=== PATIENT | female | born 1965 | race Caucasian/White ===

== ENCOUNTER 2017-07-11 17:04 | Inpatient (IN) ==
[2017-07-11] MEDS ORDERED: predniSONE 20 MG TABLET PO ONE (17:40)
[2017-07-11] MEDS ORDERED: Ipratropium/Albuterol Neb 3 ML IH ONE (17:40)
--- NOTE | 2017-07-11 17:55 | Emergency Department Note ---
Disposition Clinical Impression: COPD exacerbation Pneumonia Qualifiers: Pneumonia type: due to unspecified organism Laterality: left Lung location: unspecified part of lung Qualified Code(s): J18.9 - Pneumonia, unspecified organism Disposition: Admitted As Inpatient Condition: Undetermined SOB HPI - General Chief Complaint: ED Upper Respiratory Infection Stated Complaint: Sinus congestion, earache, sore throat Time Seen by Provider: 07/11/17 17:40 Source: patient Mode of arrival: ambulatory Limitations: no limitations Nursing Notes Reviewed: Yes Vital Signs Reviewed: Yes - History of Present Illness 52-year-old female with extensive history of COPD on home oxygen, arrives [facility] emergency department complaining of difficulty breathing , nasal congestion, cough. The patient has had some sputum that she has been coughing up as well. She denies any chest pain, fevers, abdominal pain, nausea , vomiting. She was noted to be hypoxic with an O2 saturation of roughly 83% on 3 L nasal cannula in the emergency department. Pt Subjective Complaint: shortness of breath Onset (ago): unknown Severity: moderate, severe Consistency/Duration: constant, gradually worsening Improves with: oxygen, bronchodilators Worsens with: nothing Known history of: COPD, recurrent pneumonia Treatment prior to arrival: oxygen Cough present: Yes Cough Description: Involuntary, Productive Cough Frequency: Continuous Sputum production: Yes Sputum Amount: Small Sputum Color: Cream - Related Data Home oxygen amount: 2 liters Home Medications Medication Instructions Recorded Confirmed Albuterol Sulfate [Ventolin Hfa] 2 puff IH Q4H PRN 09/02/15 07/11/17 Fluticasone Propionate Nasal 50 mcg NS DAILY 05/27/16 07/11/17 [Flonase] Montelukast [Singulair] 10 mg PO QPM 05/27/16 07/11/17 Tiotropium [Spiriva] 18 mcg IH DAILY 05/27/16 07/11/17 Albuterol Neb [Proventil Neb] 2.5 mg IH TID 07/11/17 07/11/17 Aspirin 81 mg PO DAILY 07/11/17 07/11/17 Benzonatate [Tessalon] 100 mg PO TID PRN 07/11/17 07/11/17 Citalopram Hydrobromide 40 mg PO DAILY 07/11/17 07/11/17 [Citalopram HBr] Fluticasone/Vilanterol [Breo 1 puff IH DAILY 07/11/17 07/11/17 Ellipta 100-25 Mcg INH] Ibuprofen 200 mg PO Q6H PRN 07/11/17 07/11/17 Loratadine [Claritin] 10 mg PO DAILY 07/11/17 07/11/17 Nitroglycerin [Nitrostat] 0.4 mg SL Q5M PRN 07/11/17 07/11/17 hydrOXYzine HCl [Hydroxyzine HCl] 25 mg PO TID 07/11/17 07/11/17 Allergies Allergy/AdvReac Type Severity Reaction Status Date / Time codeine Allergy Rash Verified 07/11/17 17:19 fluoxetine [From Prozac] Allergy Rash Verified 07/11/17 17:19 All systems ED: reviewed and negative except as stated. Constitutional: Denies: fever, chills, weakness ENT ED: Reports: congestion Cardiovascular: Reports: dyspnea on exertion. Denies: chest pain Respiratory: Reports: cough, dyspnea, wheezes, sputum production Gastrointestinal: Denies: abdominal pain, nausea, vomiting Genitourinary: Denies: urgency, dysuria Musculoskeletal: Denies: back pain, neck pain, arthralgia, myalgia Integumentary: Denies: rash Neurological: Denies: headache Past Medical History - Past Medical History Attestation: Yes The following information was validated with the patient. Source: patient Medical history: Reports: asthma, COPD Surgical history: Reports: non-contributory Psychiatric history: Reports: no psych history - Social History Smoking Status: Current every day smoker Smokeless Tobacco Status: No Alcohol use: Reports: none Drug use: Reports: none Physical Exam - General Limitations: no limitations General appearance: alert, in distress (Moderate respiratory) - Head Head exam: atraumatic, normocephalic, normal inspection - Eye Eye exam: Present: normal appearance, PERRL, EOMI - ENT ENT exam: normal exam, normal oropharynx, mucous membranes moist - Neck Neck exam: Present: normal inspection, full ROM, trachea midline - Chest Chest inspection: Present: normal inspection, symmetric chest wall rise - Respiratory Respiratory exam: Present: respiratory distress, wheezes, accessory muscle use - Cardiovascular Cardiovascular exam: Present: regular rate, normal rhythm, normal heart sounds - Extremities Exam Extremities exam: Present: normal inspection, full ROM. Absent: tenderness, pedal edema Course Vital Signs Temperature 97.6 F 07/11/17 17:15 Pulse Rate 83 07/11/17 17:15 Respiratory Rate 24 07/11/17 17:15 Blood Pressure 116/78 07/11/17 17:15 O2 Sat by Pulse Oximetry 83 07/11/17 17:15 Temperature 97.9 F 07/13/17 03:05 Pulse Rate 70 07/13/17 03:05 Respiratory Rate 16 07/13/17 07:29 Blood Pressure 106/67 07/13/17 03:05 O2 Sat by Pulse Oximetry 97 07/13/17 07:29 Oxygen Delivery Oxygen Delivery Nasal Cannula Shortness of Breath/Dyspnea - MDM Narrative Medical decision making narrative: Workup here in the emergency department demonstrated COPD exacerbation with likely superimposed pneumonia. We will admit the patient to the hospitals after receiving antibiotic. The patient will be admitted. The patient's O2 saturation dropped into the low 80s prior to evaluation. Patient agrees to plan. Patient will be admitted to the hospitalist service, accepted by Dr. Logan. - Lab Data Result diagrams: 07/13/17 03:03 07/13/17 03:03 Lab Results 07/11/17 07/11/17 Range/Units 18:33 18:33 WBC 12.3 H (4.3-11.1) K/mcL RBC 5.04 H (3.82-4.97) M/mcL Hgb 14.2 (11.5-15.4) g/dL Hct 42.8 (35.3-44.9) % MCV 84.9 (83.0-100.0) fL MCH 28.2 (28.0-33.3) pg MCHC 33.2 (31.6-35.5) g/dL RDW 14.8 H (11.5-14.5) % Plt Count 208 (140-400) K/mcL MPV 11.2 (9.4-12.4) fL Immature Gran % 0.4 (0-4) % Seg Neutrophils % 56.9 % Lymphocytes % 35.2 % Monocytes % 5.9 % Eosinophils % 1.0 % Basophils % 0.6 % Neutrophils # 7.0 (1.6-8.9) K/mcL Lymphocytes # 4.3 (0.6-4.6) K/mcL Monocytes # 0.7 (0.0-1.3) K/mcL Eosinophils # 0.1 (0.0-0.6) K/mcL Basophils # 0.1 (0.0-0.2) K/mcL Sodium 141 (136-145) mEq/L Potassium 3.2 L (3.5-4.5) mEq/L Chloride 109 (98-109) mEq/L Carbon Dioxide 20 (19-29) mEq/L BUN 6 L (7-20) mg/dL Creatinine 0.67 (0.57-1.11) mg/dL Est GFR ( Amer) > 60 (> 60) Est GFR (Non-Af Amer) > 60 (> 60) BUN/Creatinine Ratio 9 (6-26) Glucose 90 (70-99) mg/dL Calculated Osmolality 289 (280-300) Calcium 8.3 L (8.6-10.8) mg/dL - Radiology Data Radiology results reviewed: Yes I reviewed the patient's radiology results. - EKG Data EKG attestation: Yes I reviewed and interpreted this EKG. EKG results narrative: Rate 70 bpm. TX interval 152 ms. QTC 366 ms. Normal sinus rhythm. No ST elevation or ST depression noted. EKG similar in appearance to EKG from 2016. No acute changes noted. Attestation Statement - Attestation Attestation: I examined this patient and my medical decision-making was reviewed with the Resident Physician. I agree with the documented findings, disposition and treatment plan as described except to the extent set forth below. COPD exacerbation secondary to CAP with hypoxemia, some improvement with treatment in ED. Stable, admitted for further treatment. Symptoms gradual in onset, consistent with COPD/pneumonia. Nothing in her history to suggest other cause of symptoms (PE, ACS, etc.).
[2017-07-11] MEDS ORDERED: Levofloxacin 750 MG/150 ML 750 MG/150 ML BAG IVPB ONE (18:26)
[2017-07-11] MEDS ORDERED: Ibuprofen 800 MG TABLET PO ONE (18:39)
[2017-07-11 18:54] LABS: Basophils # 0.1 K/mcL (0.0-0.2); Basophils % 0.6 %; Eosinophils # 0.1 K/mcL (0.0-0.6); Hematocrit 42.8 % (35.3-44.9); Hemoglobin 14.2 g/dL (11.5-15.4); Immature Granulocytes % 0.4 % (0-4); Lymphocytes # 4.3 K/mcL (0.6-4.6); Lymphocytes % 35.2 %; Mean Corpuscular HGB Conc 33.2 g/dL (31.6-35.5); Mean Corpuscular Hemoglobin 28.2 pg (28.0-33.3); Mean Corpuscular Volume 84.9 fL (83.0-100.0); Mean Platelet Volume 11.2 fL (9.4-12.4); Monocytes # 0.7 K/mcL (0.0-1.3); Monocytes % 5.9 %; Platelet Count 208 K/mcL (140-400); Red Blood Count 5.04 M/mcL (3.82-4.97); Red Cell Distribution Width 14.8 % (11.5-14.5); Segmented Neutrophils % 56.9 %
[2017-07-11 19:11] LABS: BUN/Creatinine Ratio 9 (6-26); Blood Urea Nitrogen 6 mg/dL (7-20); Calcium 8.3 mg/dL (8.6-10.8); Carbon Dioxide 20 mEq/L (19-29); Chloride 109 mEq/L (98-109); Glucose 90 mg/dL (70-99); Osmolality,Calculated 289 (280-300); Potassium 3.2 mEq/L (3.5-4.5); Sodium 141 mEq/L (136-145); eGFR For African Americans > 60 (> 60); eGFR For Non-African Americans > 60 (> 60)
[2017-07-11] MEDS ORDERED: Naloxone 0.4 MG/ML INJ IVP PRN (22:27)
[2017-07-11] MEDS ORDERED: Ketorolac 15 MG/ML VIAL IVP ONE (22:30)
--- NOTE | 2017-07-11 22:32 | Internal Med History&Physical ---
<Maritza Dewey - Last Filed: 07/12/17 02:33> Date of Encounter: 07/12/17 Time of Encounter: 22:27 Assessment and Plan (1) COPD exacerbation Current visit: Yes Status: Acute She has severe COPD whom she receives care from plate worker helper Dr. Nolen. On 3L oxygen continuous. She has had increased shortness of breathe, wheezing, and non- productive cough over the past 3 days. On admission her oxygen saturation was 83%. CXR showed diffuse interstitial lung disease with left opacity which may be infection. Vitals are stable, afebrile, oxygen saturation 92% on 3 L WBC 12.3 Rocephin IV Azithromycin IV Prednisone 40 mg x 5 days Continue supplemental oxygen continue home Spiriva Duonebs (2) Pneumonia Current visit: Yes Status: Acute Consider CA- pneumonia per chest x-ray findings CXR showed diffuse interstitial lung disease with left opacity which may be infection. Vitals are stable, afebrile, oxygen saturation 92% on 3 L WBC 12.3 Rocephin IV azithromycin IV supplemental oxygen Qualifiers: Pneumonia type: due to unspecified organism Laterality: left Lung location: unspecified part of lung Qualified Code(s): J18.9 - Pneumonia, unspecified organism (3) Sinus congestion Current visit: Yes Status: Acute Patient complains of sinus pressure in frontal and maxillary regions. Headache, congestion. She gets this every year and is better once treated with antibiotics. Continue flonase tylenol prn continue home Singulair and Claritin (4) Multiple allergies Current visit: Yes Status: Acute Patient has history of allergies continue home Singulair and Claritin (5) Depression Current visit: Yes Status: Acute Continue home medications Qualifiers: Depression Type: unspecified Qualified Code(s): F32.9 - Major depressive disorder, single episode, unspecified (6) Encounter for smoking cessation counseling Current visit: Yes Status: Acute She was counseled on smoking cessation. She declined at this time stating that she already knows she should quit. (7) DVT prophylaxis Current visit: Yes Status: Acute Heparin Internal Medicine - H&P: HPI Chief complaint: sinus congestion Admitted From: Emergency Dept Plans for Post Hospital Care: Home History of present illness: Ms. Varner is a 52 year old female past medical history of severe COPD and allergies who presents to the ED complaining of sinus congestion for 3 days duration. She stated that she gets this every year and that she normally gets antibiotics and she is fine however this is the first time she has been admitted. She was not able to get an appointment with her plate worker helper is Dr. Nolen so she decided to go to the ED. She stated that she has had a sinus headache, facial pain, sore throat, ear irritation, congestion, shortness of breath, wheezing, nonproductive cough. She said the dyspnea had increased despite using 4 to 5 duonebs a day besides her regular inhalers. She is on 3 L of oxygen continuously. She denies fever, chills, chest pain, palpitations, nausea, vomiting, diarrhea, abdominal pain, dysuria. She is a current smoker but she stated that she has not smoked the full pack per day since this began. She denies travel, sick contacts, hospitalization. In ED her oxygen saturation was 83% on 3 L oxygen. She was given a dose of Levaquin prednisone and ED. Chest x-ray showed diffuse interstitial lung disease with left opacity concerning for infection. Past Med Surg Social Fam HX - Past Medical History Medical history: asthma, COPD Psychiatric history: depression - Past Surgical History Surgical History: non-contributory - Social History Smoking Status: Current every day smoker Packs per day: 1 Smokeless Tobacco Status: No Alcohol use: none Drug use: none - Family History Mother Living Status: Still Living Hx Family Cardiac Disorders: Yes Hx Family Endocrine Disorder: Yes (dm) Sister Hx Family Cardiac Disorders: Yes Internal Medicine - H&P: Meds Albuterol Sulfate [Ventolin Hfa] 2 puff IH Q4H PRN 09/02/15 [History] Fluticasone Propionate Nasal [Flonase] 50 mcg NS DAILY 05/27/16 [History] Montelukast [Singulair] 10 mg PO QPM 05/27/16 [History] Tiotropium [Spiriva] 18 mcg IH DAILY 05/27/16 [History] Albuterol Neb [Proventil Neb] 2.5 mg IH TID 07/11/17 [History] Aspirin 81 mg PO DAILY 07/11/17 [History] Benzonatate [Tessalon] 100 mg PO TID PRN 07/11/17 [History] Citalopram Hydrobromide [Citalopram HBr] 40 mg PO DAILY 07/11/17 [History] Fluticasone/Vilanterol [Breo Ellipta 100-25 Mcg INH] 1 puff IH DAILY 07/11/17 [ History] Ibuprofen 200 mg PO Q6H PRN 07/11/17 [History] Loratadine [Claritin] 10 mg PO DAILY 07/11/17 [History] Nitroglycerin [Nitrostat] 0.4 mg SL Q5M PRN 07/11/17 [History] hydrOXYzine HCl [Hydroxyzine HCl] 25 mg PO TID 07/11/17 [History] 3 Allergy/AdvReac Type Severity Reaction Status Date / Time codeine Allergy Rash Verified 07/11/17 17:19 fluoxetine [From Prozac] Allergy Rash Verified 07/11/17 17:19 All Systems PM: A 10-system review of systems was performed and is negative for pertinent findings except as documented above in the HPI. - Constitutional Constitutional: no chills, no fever(s), no falls - EENT Ears: ear pain Nose, mouth and throat: nasal congestion, sinus pain, sinus pressure, sore throat - Cardiovascular Cardiovascular ROS IM: no chest pain, no edema, no palpitations, no syncope - Respiratory Respiratory: cough, dyspnea, wheezing, no hemoptysis, no excessive phlegm production - Gastrointestinal Gastrointestinal: no abdominal pain, no diarrhea, no hematochezia, no melena, no nausea, no vomiting - Genitourinary Genitourinary: no dysuria, no hematuria, no urinary frequency - Musculoskeletal Musculoskeletal ROS IM: no muscle weakness - Integumentary Integumentary IM: no pruritus, no skin ulcer - Neurological Neurological ROS: no dizziness, no frequent falls, no loss of vision - Constitutional Vitals: Temp Pulse Resp BP Pulse Ox 97.5 F L 74 17 101/63 92 07/11/17 22:06 07/11/17 22:06 07/11/17 22:06 07/11/17 22:06 07/11/17 22:06 General appearance: Present: A&O X 3, pleasant, no acute distress - Head Head exam: Present: atraumatic, normocephalic - Eye Eye exam: Present: conjunctival injection. Absent: nystagmus - ENT ENT exam: Present: mucous membranes moist, normal exam (tenderness to frontal and maxillary sinuses) - Expanded ENT Exam Throat exam: Present: normal inspection. Absent: tonsillar exudate - Neck Neck exam general surgery: Present: supple. Absent: lymphadenopathy, tenderness - Respiratory Respiratory exam: Present: decreased breath sounds, stridor, wheezes. Absent: accessory muscle use, respiratory distress Additional comments: course breathe sounds with crackles - Cardiovascular Cardiovascular exam: Present: RRR, +S1, +S2. Absent: clicks - GI/Abdominal GI/Abdominal exam: Present: normal bowel sounds, soft. Absent: firm, guarding, tenderness - Extremities Exam Extremities exam: Present: normal inspection. Absent: calf tenderness - Back Exam Back exam: Present: normal inspection. Absent: rash noted, tenderness - Psychiatric Psychiatric exam: Present: normal affect, normal mood - Skin Skin exam: Present: dry, intact Internal Med - H&P Results - Labs CBC & Chem 7: 07/11/17 18:33 07/11/17 18:33 <Campbell Hooks - Last Filed: 07/12/17 03:25> Date of Encounter: 07/11/17 Internal Medicine - H&P: HPI History of present illness: Ms. Varner is a 52 year old female All Systems PM: A 10-system review of systems was performed and is negative for pertinent findings except as documented above in the HPI. - Constitutional Vitals: Temp Pulse Resp BP Pulse Ox 97.5 F L 74 18 101/63 90 07/11/17 22:06 07/11/17 22:06 07/11/17 23:18 07/11/17 22:06 07/11/17 23:18 Internal Med - H&P Results - Labs CBC & Chem 7: 07/11/17 18:33 07/11/17 18:33 - Attending Attestation I examined this patient and my medical decision-making was reviewed with the Resident Physician. I agree with the documented findings, disposition and treatment plan as described except to the extent set forth below. I have seen and examined the patient. Patient is a 52-year-old female with a past medical history of advanced COPD and depression. Patient presents to the ED with complaints of shortness of breath and sinus congestion for the past 3 days. She follows up regularly with pulmonology. Patient uses 3 L oxygen via nasal cannula at home. Patient tried to use her DuoNeb breathing treatment, but this did not help. She continues to smoke about 1 pack of cigarettes daily. Initial workup in the ED is significant for interstitial lung disease with left opacity concerning for infection seen on chest x-ray and hypoxia. Patient is being admitted for COPD exacerbation and community-acquired pneumonia. She be continued on DuoNeb breathing treatment and empiric IV antibiotics. She has been counseled extensively about smoking cessation. Patient has been explained about her condition and plan of care in detail. She understood and agreed. No unanswered questions. CODE STATUS full code.
[2017-07-11] MEDS ORDERED: Benzonatate 100 MG CAPSULE PO PRN (22:34)
[2017-07-11] MEDS: hydrOXYzine pamoate 25 MG CAPSULE PO SCH (23:08)
[2017-07-11] MEDS: Ipratropium/Albuterol Neb 3 ML IH SCH (23:18)
[2017-07-12] MEDS ORDERED: cefTRIAXone 1,000 MG in Water for inj. (sterile) 10 ML IVP SCH (02:40)
[2017-07-12] MEDS: cefTRIAXone 1,000 MG in Water for inj. (sterile) 10 ML IVP SCH (04:05)
[2017-07-12] MEDS: Ipratropium/Albuterol Neb 3 ML IH SCH ×6 (04:06→23:03)
[2017-07-12] MEDS: Azithromycin 500 MG in D5% in Water 250 ML IVPB SCH (04:06)
[2017-07-12 04:48] LABS: Basophils % 0.2 %; Hematocrit 46.2 % (35.3-44.9); Hemoglobin 15.2 g/dL (11.5-15.4); Immature Granulocytes % 0.3 % (0-4); Lymphocytes # 1.4 K/mcL (0.6-4.6); Lymphocytes % 15.5 %; Mean Corpuscular HGB Conc 32.9 g/dL (31.6-35.5); Mean Corpuscular Hemoglobin 28.1 pg (28.0-33.3); Mean Corpuscular Volume 85.6 fL (83.0-100.0); Mean Platelet Volume 11.6 fL (9.4-12.4); Monocytes # 0.1 K/mcL (0.0-1.3); Monocytes % 0.7 %; Neutrophils # 7.6 K/mcL (1.6-8.9); Platelet Count 228 K/mcL (140-400); Red Cell Distribution Width 14.9 % (11.5-14.5); Segmented Neutrophils % 83.3 %
[2017-07-12 04:58] LABS: BUN/Creatinine Ratio 13 (6-26); Blood Urea Nitrogen 10 mg/dL (7-20); Calcium 8.9 mg/dL (8.6-10.8); Carbon Dioxide 17 mEq/L (19-29); Chloride 106 mEq/L (98-109); Glucose 188 mg/dL (70-99); Osmolality,Calculated 292 (280-300); Potassium 3.9 mEq/L (3.5-4.5); Sodium 139 mEq/L (136-145); eGFR For African Americans > 60 (> 60); eGFR For Non-African Americans > 60 (> 60)
[2017-07-12] MEDS: *HR* Heparin 5,000 UNIT/ML VIAL SQ SCH ×2 (05:32→17:17)
[2017-07-12] MEDS: Tiotropium 18 MCG inhalation IH SCH (07:36)
[2017-07-12] MEDS: Loratadine 10 MG TABLET PO SCH (08:16)
[2017-07-12] MEDS: Aspirin 81 MG TAB.CHEW PO SCH (08:16)
[2017-07-12] MEDS: Fluticasone Propionate Nasal 50 MCG/SPRAY BOTTLE NS SCH (08:17)
[2017-07-12] MEDS: predniSONE 20 MG TABLET PO SCH (08:17)
[2017-07-12] MEDS: hydrOXYzine pamoate 25 MG CAPSULE PO SCH ×3 (08:18→20:04)
[2017-07-12] MEDS ORDERED: Ketorolac 15 MG/ML VIAL IVP PRN (09:58)
--- NOTE | 2017-07-12 10:32 | Internal Med Progress Note ---
Date of Encounter: 07/12/17 Time of Encounter: 09:00 - Assessment and plan (1) COPD exacerbation Current Visit: Yes Status: Acute Assessment and plan: c/w oral prednisone. c/w nebs. On baseline O2. Will monitor (2) Pneumonia Current Visit: Yes Status: Acute Assessment and plan: c/w IV ceftriaxone and zithro today. possibly d/c tomorrow. f/u on cultures. WBC trending donw Qualifiers: Pneumonia type: due to unspecified organism Laterality: left Lung location: unspecified part of lung Qualified Code(s): J18.9 - Pneumonia, unspecified organism (3) DVT prophylaxis Current Visit: Yes Status: Acute Assessment and plan: heparin SQ (4) Sinus congestion Current Visit: Yes Status: Acute Assessment and plan: c/w symptomatic treatment. c/w flonase. c/w IV toradol as that has helped earlier. (5) Encounter for smoking cessation counseling Current Visit: Yes Status: Acute Assessment and plan: nicotine patch - Subjective Interval history: No acute events. Patient feels well. She continues to have a dry cough. Afebrile. Maintained on 3 L O2. - Constitutional Vitals: Temp Pulse Resp BP Pulse Ox 97.8 F 70 15 104/62 93 07/12/17 07:38 07/12/17 07:38 07/12/17 07:38 07/12/17 07:38 07/12/17 07:38 General appearance: Present: A&O X 3, pleasant, no acute distress Exam: GEN: NAD CVS: RRR. S1, S2, No m/r/g RESP: Dimished. No wheezes but coarse ABD: soft, NT, ND, +BS EXT: No edema. 2+ DP NEURO: Nonfocal Internal Medicine: Result - Labs CBC & Chem 7: 07/12/17 03:14 07/12/17 03:14 Labs: Short CBC 07/12/17 Range/Units 03:14 WBC 9.1 (4.3-11.1) K/mcL Hgb 15.2 (11.5-15.4) g/dL Hct 46.2 H (35.3-44.9) % Plt Count 228 (140-400) K/mcL Neutrophils # 7.6 (1.6-8.9) K/mcL BMP 07/12/17 03:14 Sodium 139 Potassium 3.9 Chloride 106 Carbon Dioxide 17 L BUN 10 Creatinine 0.80 Glucose 188 H Calcium 8.9 Consult Discharge Plan - Plan Referrals: NONE,PCP [Primary Care Provider] -
[2017-07-12] MEDS ORDERED: Temazepam 15 MG CAPSULE PO PRN (19:38)
[2017-07-13] MEDS: Ipratropium/Albuterol Neb 3 ML IH SCH ×3 (03:12→11:03)
[2017-07-13] MEDS: Azithromycin 500 MG in D5% in Water 250 ML IVPB SCH (03:12)
[2017-07-13 04:39] LABS: Basophils # 0.1 K/mcL (0.0-0.2); Basophils % 0.3 %; Eosinophils % 0.1 %; Hematocrit 41.4 % (35.3-44.9); Immature Granulocytes % 0.4 % (0-4); Lymphocytes # 6.2 K/mcL (0.6-4.6); Lymphocytes % 30.2 %; Mean Corpuscular HGB Conc 32.4 g/dL (31.6-35.5); Mean Corpuscular Volume 86.4 fL (83.0-100.0); Mean Platelet Volume 11.6 fL (9.4-12.4); Monocytes # 1.4 K/mcL (0.0-1.3); Monocytes % 6.9 %; Neutrophils # 12.8 K/mcL (1.6-8.9); Platelet Count 214 K/mcL (140-400); Red Blood Count 4.79 M/mcL (3.82-4.97); Red Cell Distribution Width 15.5 % (11.5-14.5); Segmented Neutrophils % 62.1 %
[2017-07-13 04:40] LABS: Hemoglobin 13.4 g/dL (11.5-15.4)
[2017-07-13 04:49] LABS: BUN/Creatinine Ratio 16 (6-26); Blood Urea Nitrogen 10 mg/dL (7-20); Calcium 8.5 mg/dL (8.6-10.8); Carbon Dioxide 22 mEq/L (19-29); Chloride 109 mEq/L (98-109); Glucose 82 mg/dL (70-99); Osmolality,Calculated 292 (280-300); Sodium 142 mEq/L (136-145); eGFR For African Americans > 60 (> 60); eGFR For Non-African Americans > 60 (> 60)
[2017-07-13] MEDS: *HR* Heparin 5,000 UNIT/ML VIAL SQ SCH (06:02)
[2017-07-13] MEDS: Tiotropium 18 MCG inhalation IH SCH (07:28)
[2017-07-13 07:35] VITALS: BP 112/73
[2017-07-13] MEDS: Aspirin 81 MG TAB.CHEW PO SCH (08:50)
[2017-07-13] MEDS: Fluticasone Propionate Nasal 50 MCG/SPRAY BOTTLE NS SCH (08:51)
[2017-07-13] MEDS: Loratadine 10 MG TABLET PO SCH (08:51)
[2017-07-13] MEDS: hydrOXYzine pamoate 25 MG CAPSULE PO SCH (08:51)
[2017-07-13] MEDS: cefTRIAXone 1,000 MG in Water for inj. (sterile) 10 ML IVP SCH (08:52)
[2017-07-13] MEDS: predniSONE 20 MG TABLET PO SCH (08:52)
--- NOTE | 2017-07-13 10:03 | Discharge Summary ---
Date of Encounter: 07/14/17 Time of Encounter: 10:00 - Discharge Diagnosis (1) COPD exacerbation Priority: Primary Status: Acute (2) Pneumonia Priority: Primary Status: Acute Qualifiers: Pneumonia type: due to unspecified organism Laterality: left Lung location: unspecified part of lung Qualified Code(s): J18.9 - Pneumonia, unspecified organism (3) Sinus congestion Priority: Primary Status: Acute (4) Encounter for smoking cessation counseling Priority: Primary Status: Acute - Discharge Medications Prescriptions: levoFLOXacin [Levaquin] 500 mg PO DAILY #7 tablet predniSONE [PredniSONE] See Taper PO DAILY #39 tablet Temazepam [Restoril] 7.5 mg PO DAILY #15 capsule Home Medications: Albuterol Sulfate [Ventolin Hfa] 2 puff IH Q4H PRN 09/02/15 [History] Fluticasone Propionate Nasal [Flonase] 50 mcg NS DAILY 05/27/16 [History] Montelukast [Singulair] 10 mg PO QPM 05/27/16 [History] Tiotropium [Spiriva] 18 mcg IH DAILY 05/27/16 [History] Albuterol Neb [Proventil Neb] 2.5 mg IH TID 07/11/17 [History] Aspirin 81 mg PO DAILY 07/11/17 [History] Benzonatate [Tessalon] 100 mg PO TID PRN 07/11/17 [History] Citalopram Hydrobromide [Citalopram HBr] 40 mg PO DAILY 07/11/17 [History] Fluticasone/Vilanterol [Breo Ellipta 100-25 Mcg INH] 1 puff IH DAILY 07/11/17 [ History] Ibuprofen 200 mg PO Q6H PRN 07/11/17 [History] Loratadine [Claritin] 10 mg PO DAILY 07/11/17 [History] Nitroglycerin [Nitrostat] 0.4 mg SL Q5M PRN 07/11/17 [History] hydrOXYzine HCl [Hydroxyzine HCl] 25 mg PO TID 07/11/17 [History] Temazepam [Restoril] 7.5 mg PO DAILY #15 capsule 07/13/17 [Rx] levoFLOXacin [Levaquin] 500 mg PO DAILY #7 tablet 07/13/17 [Rx] predniSONE [PredniSONE] See Taper PO DAILY #39 tablet 07/13/17 [Rx] Allergies/Adverse Reactions: 3 Allergy/AdvReac Type Severity Reaction Status Date / Time codeine Allergy Rash Verified 07/11/17 17:19 fluoxetine [From Prozac] Allergy Rash Verified 07/11/17 17:19 Procedures/tests Complete & Pending: Procedures Performed prior 72 hours Category Date Time Status ECG 12 lead ECG [ECG] Routine Y 07/11/17 17:40 Completed Date of admission: 07/11/17 18:49 Primary care physician: PCP NONE Consults: 07/11/17 23:49 Consult to Report Analyst [CONS] Routine Reason for SW Consult: Pt is asking about possible home health. - Patient Status Disposition: Home, Self-Care Condition: Fair Functional capacity at discharge: independent ambulation Overall status at discharge: patient is back to baseline - Discharge Instructions Instructions: Prednisone (By mouth), Levofloxacin (By mouth), How to Stop Smoking (DC), Chronic Obstructive Pulmonary Disease (DC), Pneumonia (DC) Follow Up With: NONE,PCP [Primary Care Provider] - 07/26/17 10:15 am ([facility]) - Diet and Activity Activity: wear oxygen at all times Diet: regular diet Hospital course: 52 year old female past medical history of severe COPD and allergies who presents to the ED complaining of sinus congestion for 3 days duration. She said the dyspnea had increased despite using 4 to 5 duonebs a day besides her regular inhalers. She is on 3 L of oxygen continuously. She denied fever, chills , chest pain, palpitations, nausea, vomiting, diarrhea, abdominal pain, dysuria. She is a current smoker but she stated that she has not smoked the full pack per day since this began. In ED her oxygen saturation was 83% on 3 L oxygen. She was given a dose of Levaquin and prednisone and ED. Chest x-ray showed diffuse interstitial lung disease with left opacity concerning for infection. We treated her for COPD exacerbation and community acquired pneumonia. She was on IV steroids and switched to oral taper at d/c. She was also discharged on Levaquin to finish pneumonia treatment. She needed 3L at rest and 4 L with exertion at discharge. - Time Spent with Patient Total time spent providing and/or coordinating discharge services: - Constitutional Vitals: Temp Pulse Resp BP Pulse Ox 96.7 F L 56 15 112/73 99 07/13/17 07:30 07/13/17 07:30 07/13/17 07:30 07/13/17 07:30 07/13/17 07:30 General appearance: Present: A&O X 3, pleasant, no acute distress Exam: GEN: NAD CVS: RRR. S1, S2, No m/r/g RESP: Dimished. No wheezes but coarse ABD: soft, NT, ND, +BS EXT: No edema. 2+ DP NEURO: Nonfocal
--- NOTE | 2017-07-13 18:16 | Electrocardiograph Report ---
[place] [id number] Test Date: 2017-07-11 Pat Name: Shahrzad Varner Department: 104 Room: 3B14 Gender: F Cyber Security Specialist: ORLIN : 1965 Requested By: Keshia Rendon Order Number: [id number] Reading MD: Yonas Hitchcock DO Measurements Intervals [place] Rate: 70 P: 119 NC: 152 QRS: 88 QRSD: 90 T: 114 QT: 346 QTc: 366 Interpretive Statements SINUS RHYTHM POSSIBLE LEFT ATRIAL ENLARGEMENT NONSPECIFIC ST & T-WAVE ABNORMALITY Electronically Signed On 07-13-2017 18:14:41 EST by Yonas Hitchcock DO
== END 2017-07-13 12:58 | disposition home or self-care (01) | DRG 140 ==
LOC: EMEROO 17:04 → 3BNU 18:49
PROVIDERS: ADMIT Hospitalist; ATTEND Registered Nurse

== ENCOUNTER 2017-11-04 19:04 | Inpatient (IN) ==
[2017-11-04] MEDS ORDERED: Ipratropium/Albuterol Neb 3 ML IH ONE (19:25)
[2017-11-04] MEDS ORDERED: methylPREDNISolone 125 MG/2 ML VIAL IVP ONE (19:25)
--- NOTE | 2017-11-04 19:35 | Emergency Department Note ---
Disposition Clinical Impression: Acute exacerbation of chronic obstructive airways disease Disposition: Admitted As Inpatient Condition: Fair Referrals: NONE,PCP [Primary Care Provider] - Forms: ED Satisfaction Letter Time of Disposition: 21:46 General Adult HPI - General Chief complaint: ED Shortness of Breath/Dyspnea Stated complaint: VENKATESH/COPD Time Seen by Provider: 11/04/17 19:23 Source: patient Mode of arrival: wheelchair Limitations: no limitations Nursing Notes Reviewed: Yes Vital Signs Reviewed: Yes - History of Present Illness HPI Narrative: 52-year-old female with significant past medical history of COPD following pulmonology at [place] on 4 L nasal cannula of oxygen throughout the day presenting to the emergency Department chief complaint shortness of breath. Patient states for the past week she has been having increased shortness of breath and chest pain. She states "my heart hurts". Patient denies any cardiac history. Patient denies any fevers. Last time she was admitted was around [place]. She states she has needed BiPAP in the past. Does not have BiPAP or CPAP at home. No known sick contacts. Denies any nausea, vomiting, abdominal pain or dizziness. Patient states at home when she is wearing her nasal cannula oxygen when she exerts herself her oxygen saturation has been low as 50%. Pain Scale: 10 - Related Data Home Medications Medication Instructions Recorded Confirmed Albuterol Sulfate [Ventolin Hfa] 2 puff IH Q4H PRN 09/02/15 11/04/17 Fluticasone Propionate Nasal 50 mcg NS DAILY 05/27/16 11/04/17 [Flonase] Montelukast [Singulair] 10 mg PO QPM 05/27/16 11/04/17 Tiotropium [Spiriva] 18 mcg IH DAILY 05/27/16 11/04/17 Albuterol Neb [Proventil Neb] 2.5 mg IH TID 07/11/17 11/04/17 Aspirin 81 mg PO DAILY 07/11/17 11/04/17 Benzonatate [Tessalon] 100 mg PO TID PRN 07/11/17 11/04/17 Fluticasone/Vilanterol [Breo 1 puff IH DAILY 07/11/17 11/04/17 Ellipta 100-25 Mcg INH] Ibuprofen 200 mg PO Q6H PRN 07/11/17 11/04/17 Loratadine [Claritin] 10 mg PO DAILY 07/11/1718 Nitroglycerin [Nitrostat] 0.4 mg SL Q5M PRN 07/11/17 11/04/17 Allergies Allergy/AdvReac Type Severity Reaction Status Date / Time codeine Allergy Rash Verified 07/11/17 17:19 fluoxetine [From Prozac] Allergy Rash Verified 07/11/17 17:19 All systems ED: reviewed and negative except as stated. Cardiovascular: Reports: chest pain, dyspnea on exertion Respiratory: Reports: dyspnea Past Medical History - Past Medical History Attestation: Yes The following information was validated with the patient. Medical history: Reports: asthma, COPD Surgical history: Reports: non-contributory Psychiatric history: Reports: no psych history - Social History Smoking Status: Current every day smoker Smokeless Tobacco Status: No Alcohol use: Reports: none Drug use: Reports: none Physical Exam - General Limitations: no limitations General appearance: alert, in distress (respiratory) - Head Head exam: atraumatic, normocephalic, normal inspection - Eye Eye exam: Present: normal appearance. Absent: scleral icterus, conjunctival injection - ENT ENT exam: normal exam, mucous membranes moist - Neck Neck exam: Present: normal inspection, full ROM. Absent: tenderness, meningismus - Chest Chest inspection: Present: normal inspection, symmetric chest wall rise. Absent : tenderness, rash - Respiratory Respiratory exam: Present: other (Inspiratory wheezing throughout. Decreased breath sounds throughout.) - Cardiovascular Cardiovascular exam: Present: normal rhythm, tachycardia, normal heart sounds - Abdominal Exam Abdominal exam: Present: soft, Non-Tender. Absent: distention, guarding, rebound - Extremities Exam Extremities exam: Present: normal inspection, full ROM - Neurological Exam Neurological exam: Present: alert, oriented X3 - Psychiatric Psychiatric exam: Present: normal affect, normal mood - Skin Skin exam: Present: warm, intact Course Course Narrative: 52-year-old female with COPD presenting for shortness of breath. Upon presentation patient is tachycardic and hypoxic. Patient placed on nonrebreather mask at 10 L. Patient heart rate then became within normal limits and oxygen saturation 100%. Patient is alert and oriented 3 in the room. Physical exam shows inspiratory wheezing and decreased breath sounds otherwise within normal limits. We will obtain basic laboratory analysis and a chest x-ray. We will also provide her with breathing treatments and steroids. Concern for COPD exacerbation at this time. Patient disposition pending but most likely admission. Patient agrees with this plan. - Reevaluation(s) Reevaluation #1: All patient's labs and imaging is comeback within normal limits. Patient has oxygen saturation in the low 90s on 8 L oxygen mask. We will plan to admit the patient at this time for COPD exacerbation along with hypoxia. Patient is alert and oriented 3 and room. Other vital signs stable and within normal limits. I spoke with the hospitalist on-call who agrees to accept the patient. Patient agrees with this plan. Vital Signs Temperature 98.1 F 11/04/17 19:05 Pulse Rate 109 11/04/17 19:05 Respiratory Rate 30 11/04/17 19:05 Blood Pressure 155/82 11/04/17 19:05 O2 Sat by Pulse Oximetry 63 11/04/17 19:05 Temperature 98.1 F 11/04/17 19:05 Pulse Rate 89 11/04/17 20:30 Respiratory Rate 20 11/04/17 19:35 Blood Pressure 131/80 11/04/17 20:30 O2 Sat by Pulse Oximetry 92 11/04/17 20:30 Oxygen Delivery Oxygen Delivery Nasal Cannula Medical Decision Making - Lab Data Result diagrams: 11/04/17 19:30 11/04/17 19:30 Lab Results 11/04/17 11/04/17 11/04/17 Range/Units 19:30 19:30 19:30 WBC 13.3 H (4.3-11.1) K/mcL RBC 5.70 H (3.82-4.97) M/mcL Hgb 16.2 H (11.5-15.4) g/dL Hct 49.4 H (35.3-44.9) % MCV 86.7 (83.0-100.0) fL MCH 28.4 (28.0-33.3) pg MCHC 32.8 (31.6-35.5) g/dL RDW 14.4 (11.5-14.5) % Plt Count 250 (140-400) K/mcL MPV 11.2 (9.4-12.4) fL Immature Gran % 0.3 (0-4) % Seg Neutrophils % 61.6 % Lymphocytes % 31.1 % Monocytes % 5.0 % Eosinophils % 1.3 % Basophils % 0.7 % Neutrophils # 8.2 (1.6-8.9) K/mcL Lymphocytes # 4.1 (0.6-4.6) K/mcL Monocytes # 0.7 (0.0-1.3) K/mcL Eosinophils # 0.2 (0.0-0.6) K/mcL Basophils # 0.1 (0.0-0.2) K/mcL Sodium 141 (136-145) mEq/L Potassium 3.1 L (3.5-5.1) mEq/L Chloride 107 (98-107) mEq/L Carbon Dioxide 23 (23-29) mEq/L BUN 6 (6-20) mg/dL Creatinine 0.74 (0.60-1.20) mg/dL Est GFR ( Amer) > 60 (> 60) Est GFR (Non-Af Amer) > 60 (> 60) BUN/Creatinine Ratio 8 (6-26) Glucose 100 (70-105) mg/dL Calculated Osmolality 290 (280-300) Lactic Acid 2.2 (0.5-2.2) mmol/L Calcium 9.7 (8.6-10.3) mg/dL Troponin I < 0.03 (< 0.04) ng/mL B-Natriuretic Peptide (Less than 100) pg/mL 11/04/17 Range/Units 19:30 WBC (4.3-11.1) K/mcL RBC (3.82-4.97) M/mcL Hgb (11.5-15.4) g/dL Hct (35.3-44.9) % MCV (83.0-100.0) fL MCH (28.0-33.3) pg MCHC (31.6-35.5) g/dL RDW (11.5-14.5) % Plt Count (140-400) K/mcL MPV (9.4-12.4) fL Immature Gran % (0-4) % Seg Neutrophils % % Lymphocytes % % Monocytes % % Eosinophils % % Basophils % % Neutrophils # (1.6-8.9) K/mcL Lymphocytes # (0.6-4.6) K/mcL Monocytes # (0.0-1.3) K/mcL Eosinophils # (0.0-0.6) K/mcL Basophils # (0.0-0.2) K/mcL Sodium (136-145) mEq/L Potassium (3.5-5.1) mEq/L Chloride (98-107) mEq/L Carbon Dioxide (23-29) mEq/L BUN (6-20) mg/dL Creatinine (0.60-1.20) mg/dL Est GFR ( Amer) (> 60) Est GFR (Non-Af Amer) (> 60) BUN/Creatinine Ratio (6-26) Glucose (70-105) mg/dL Calculated Osmolality (280-300) Lactic Acid (0.5-2.2) mmol/L Calcium (8.6-10.3) mg/dL Troponin I (< 0.04) ng/mL B-Natriuretic Peptide 666 H (Less than 100) pg/mL - EKG Data EKG #1 EKG attestation: Yes I reviewed and interpreted this EKG. EKG results narrative: Sinus rhythm. Left atrial enlargement. Right axis deviation. 84 beats for minute. AL interval 169, QRS 92, QTC 425. No signs of acute ST segment elevation or ischemia compared to previous EKG completed on 07/11/2017 no significant changes noted
[2017-11-04 19:44] LABS: Basophils # 0.1 K/mcL (0.0-0.2); Basophils % 0.7 %; Eosinophils # 0.2 K/mcL (0.0-0.6); Eosinophils % 1.3 %; Hematocrit 49.4 % (35.3-44.9); Hemoglobin 16.2 g/dL (11.5-15.4); Immature Granulocytes % 0.3 % (0-4); Lymphocytes # 4.1 K/mcL (0.6-4.6); Lymphocytes % 31.1 %; Mean Corpuscular HGB Conc 32.8 g/dL (31.6-35.5); Mean Corpuscular Hemoglobin 28.4 pg (28.0-33.3); Mean Corpuscular Volume 86.7 fL (83.0-100.0); Mean Platelet Volume 11.2 fL (9.4-12.4); Monocytes # 0.7 K/mcL (0.0-1.3); Neutrophils # 8.2 K/mcL (1.6-8.9); Platelet Count 250 K/mcL (140-400); Red Cell Distribution Width 14.4 % (11.5-14.5); Segmented Neutrophils % 61.6 %
[2017-11-04 20:04] LABS: BUN/Creatinine Ratio 8 (6-26); Blood Urea Nitrogen 6 mg/dL (6-20); Calcium 9.7 mg/dL (8.6-10.3); Carbon Dioxide 23 mEq/L (23-29); Chloride 107 mEq/L (98-107); Glucose 100 mg/dL (70-105); Osmolality,Calculated 290 (280-300); Potassium 3.1 mEq/L (3.5-5.1); Sodium 141 mEq/L (136-145); eGFR For African Americans > 60 (> 60); eGFR For Non-African Americans > 60 (> 60)
[2017-11-04 20:05] LABS: Troponin I < 0.03 ng/mL (< 0.04)
--- NOTE | 2017-11-04 22:04 | Emergency Department Note ---
Disposition Clinical Impression: Acute exacerbation of chronic obstructive airways disease Disposition: Admitted As Inpatient Condition: Fair General Adult HPI - General Chief complaint: ED Shortness of Breath/Dyspnea Stated complaint: VENKATESH/COPD Time Seen by Provider: 11/04/17 19:23 Source: patient Mode of arrival: wheelchair Limitations: no limitations Nursing Notes Reviewed: Yes Vital Signs Reviewed: Yes - History of Present Illness Pain Scale: 10 - Related Data Home Medications Medication Instructions Recorded Confirmed Albuterol Sulfate [Ventolin Hfa] 2 puff IH Q4H PRN 09/02/15 11/04/17 Fluticasone Propionate Nasal 50 mcg NS DAILY 05/27/16 11/04/17 [Flonase] Montelukast [Singulair] 10 mg PO QPM 05/27/16 11/04/17 Tiotropium [Spiriva] 18 mcg IH DAILY 05/27/16 11/04/17 Albuterol Neb [Proventil Neb] 2.5 mg IH TID 07/11/17 11/04/17 Aspirin 81 mg PO DAILY 07/11/17 11/04/17 Benzonatate [Tessalon] 100 mg PO TID PRN 07/11/17 11/04/17 Fluticasone/Vilanterol [Breo 1 puff IH DAILY 07/11/17 11/04/17 Ellipta 100-25 Mcg INH] Ibuprofen 200 mg PO Q6H PRN 07/11/17 11/04/17 Loratadine [Claritin] 10 mg PO DAILY 07/11/17 11/04/17 Nitroglycerin [Nitrostat] 0.4 mg SL Q5M PRN 07/11/17 11/04/17 Allergies Allergy/AdvReac Type Severity Reaction Status Date / Time codeine Allergy Rash Verified 07/11/17 17:19 fluoxetine [From Prozac] Allergy Rash Verified 07/11/17 17:19 Cardiovascular: Reports: chest pain, dyspnea on exertion Respiratory: Reports: dyspnea Past Medical History - Past Medical History Medical history: Reports: asthma, COPD Surgical history: Reports: non-contributory Psychiatric history: Reports: no psych history - Social History Smoking Status: Current every day smoker Smokeless Tobacco Status: No Alcohol use: Reports: none Drug use: Reports: none Physical Exam - General Limitations: no limitations General appearance: alert, in distress (respiratory) Course Vital Signs Temperature 98.1 F 11/04/17 19:05 Pulse Rate 109 11/04/17 19:05 Respiratory Rate 30 11/04/17 19:05 Blood Pressure 155/82 11/04/17 19:05 O2 Sat by Pulse Oximetry 63 11/04/17 19:05 Temperature 98.1 F 11/04/17 19:05 Pulse Rate 86 11/04/17 21:30 Respiratory Rate 20 11/04/17 19:35 Blood Pressure 129/90 11/04/17 21:30 O2 Sat by Pulse Oximetry 92 11/04/17 21:30 Oxygen Delivery Oxygen Delivery Nasal Cannula Medical Decision Making - Lab Data Result diagrams: 11/04/17 19:30 11/04/17 19:30 Lab Results 11/04/17 11/04/17 11/04/17 Range/Units 19:30 19:30 19:30 WBC 13.3 H (4.3-11.1) K/mcL RBC 5.70 H (3.82-4.97) M/mcL Hgb 16.2 H (11.5-15.4) g/dL Hct 49.4 H (35.3-44.9) % MCV 86.7 (83.0-100.0) fL MCH 28.4 (28.0-33.3) pg MCHC 32.8 (31.6-35.5) g/dL RDW 14.4 (11.5-14.5) % Plt Count 250 (140-400) K/mcL MPV 11.2 (9.4-12.4) fL Immature Gran % 0.3 (0-4) % Seg Neutrophils % 61.6 % Lymphocytes % 31.1 % Monocytes % 5.0 % Eosinophils % 1.3 % Basophils % 0.7 % Neutrophils # 8.2 (1.6-8.9) K/mcL Lymphocytes # 4.1 (0.6-4.6) K/mcL Monocytes # 0.7 (0.0-1.3) K/mcL Eosinophils # 0.2 (0.0-0.6) K/mcL Basophils # 0.1 (0.0-0.2) K/mcL Sodium 141 (136-145) mEq/L Potassium 3.1 L (3.5-5.1) mEq/L Chloride 107 (98-107) mEq/L Carbon Dioxide 23 (23-29) mEq/L BUN 6 (6-20) mg/dL Creatinine 0.74 (0.60-1.20) mg/dL Est GFR ( Amer) > 60 (> 60) Est GFR (Non-Af Amer) > 60 (> 60) BUN/Creatinine Ratio 8 (6-26) Glucose 100 (70-105) mg/dL Calculated Osmolality 290 (280-300) Lactic Acid 2.2 (0.5-2.2) mmol/L Calcium 9.7 (8.6-10.3) mg/dL Troponin I < 0.03 (< 0.04) ng/mL B-Natriuretic Peptide (Less than 100) pg/mL 11/04/17 Range/Units 19:30 WBC (4.3-11.1) K/mcL RBC (3.82-4.97) M/mcL Hgb (11.5-15.4) g/dL Hct (35.3-44.9) % MCV (83.0-100.0) fL MCH (28.0-33.3) pg MCHC (31.6-35.5) g/dL RDW (11.5-14.5) % Plt Count (140-400) K/mcL MPV (9.4-12.4) fL Immature Gran % (0-4) % Seg Neutrophils % % Lymphocytes % % Monocytes % % Eosinophils % % Basophils % % Neutrophils # (1.6-8.9) K/mcL Lymphocytes # (0.6-4.6) K/mcL Monocytes # (0.0-1.3) K/mcL Eosinophils # (0.0-0.6) K/mcL Basophils # (0.0-0.2) K/mcL Sodium (136-145) mEq/L Potassium (3.5-5.1) mEq/L Chloride (98-107) mEq/L Carbon Dioxide (23-29) mEq/L BUN (6-20) mg/dL Creatinine (0.60-1.20) mg/dL Est GFR ( Amer) (> 60) Est GFR (Non-Af Amer) (> 60) BUN/Creatinine Ratio (6-26) Glucose (70-105) mg/dL Calculated Osmolality (280-300) Lactic Acid (0.5-2.2) mmol/L Calcium (8.6-10.3) mg/dL Troponin I (< 0.04) ng/mL B-Natriuretic Peptide 666 H (Less than 100) pg/mL Critical Care Time Critical Care Time: Yes Total Critical Care Time: 35 Attestation: Critical care performed: Time is exclusive of separately billable procedures. Time includes: direct patient care, patient reassessment, coordination of patient care, interpretation of data (laboratory data, radiology data, and respiratory data), review of patient's medical records, medical consultation and documentation of patient care. Procedures included in critical care time: Procedures excluded from critical care time: Attestation Statement - Attestation Attestation: I, Nilson Dasilva MD, personally evaluated this patient and discussed their management with the resident physician. I reviewed the resident's note and agree with the documented findings, medical decision making, and plan of care. 52-year-old female with oxygen-dependent COPD presents to the emergency department complaining of increased shortness of breath with any exertion throughout the day today which has gotten progressively worse especially this evening. He has increased her oxygen with no improvement. She states with any exertion she gets extremely short of breath. Some mid chest pain. No increased cough. No fever. On initial oxygen saturation at triage was 63% on 4 L by nasal cannula. Patient was immediately brought back to the emergency department and placed on a nonrebreather mask. On examination patient is a thin small female in moderate respiratory distress. She is alert and oriented 3. There is no cyanosis or diaphoresis. Breath sounds are markedly decreased bilaterally with diffuse bilateral inspiratory wheezes. I did not appreciate any expiratory wheezes. No rales. Heart regular rate and rhythm. Abdomen soft and nontender with normal bowel sounds. No pedal edema. Patient was initially tachycardic and in moderate respiratory distress. She was placed on oxygen by nonrebreather rapid improvement in her respiratory status. Oxygen saturation 100% on the nonrebreather. Heart rate decreased from about 1:15 down into the 80s. She was then changed to an oxy-mask at 8 L. She is much improved clinically and is maintaining oxygen saturations in the low 90s. She received DuoNeb treatments and IV Solu-Medrol in the emergency department. Labs reviewed. Chest x-ray shows no acute abnormality and unchanged from previous films. Patient was last in the hospital approximately 4 months ago. The hospitalist, Dr. Viveros, was consulted and accepted admission of the patient.
--- NOTE | 2017-11-04 22:34 | Internal Med History&Physical ---
Date of Encounter: 11/04/17 Time of Encounter: 22:34 Assessment and Plan (1) COPD exacerbation Status: Resolved - SOB due to *COPD exacerbation caused by URTI vs allergen exposure vs medication nonocompliance vs worsening of her underlying disease. PLAN: - Aerosols q 4 hr and PRN SOB - Solu-medrol 40 mg IV q 6 hr - O2 to keep SpO2 higher than 92% (SpO higher than 95% if CAD) - CBCD, BMP in AM - Sputum Gram stain, C+S - Tylenol 650 mg PO q 4-6 hr PRN pain/fever - Heparin 5000 U SQ BID - Azithromycine 500 po daily (2) Depression Status: Acute Qualifiers: Depression Type: unspecified Qualified Code(s): F32.9 - Major depressive disorder, single episode, unspecified (3) Encounter for smoking cessation counseling Status: Acute Stated that she significantly cut back on cigarette (4) Hypokalemia Status: Resolved We will replace and recheck complete metabolic panel (5) DVT prophylaxis Status: Acute We will place a SCDs is and start heparin 5000 twice a day Internal Medicine - H&P: HPI Chief complaint: Shortness of breath with exertion History of present illness: Ms. Varner is a 52 year old female with oxygen-dependent COPD presents to the emergency department complaining of increased shortness of breath with any exertion throughout the day. She has noted that while at rest her oxygen saturation is adequate but was any ambulation her oxygen saturation was dropped significantly and she become significantly short of breath. She was evaluated by the ER staff her oxygen saturation on 4 L by nasal cannula was only 63% therefore she was placed on nonrebreather mask and her oxygen saturation significantly improved 100%. her Chest x-ray shows no acute abnormality and unchanged from previous films. Patient was admitted for further evaluation and management of COPD exacerbation, she follow-up with pulmonary as an outpatient , however she requested that they will be consulted to further investigate the worsening of her underlying lung disease. Past Med Surg Social Fam HX - Past Medical History Medical history: asthma, COPD Psychiatric history: no psych history - Past Surgical History Surgical History: non-contributory - Social History Smoking Status: Current every day smoker Smokeless Tobacco Status: No Alcohol use: none Drug use: none - Family History Mother Living Status: Still Living Hx Family Cardiac Disorders: Yes Hx Family Endocrine Disorder: Yes (dm) Sister Hx Family Cardiac Disorders: Yes Internal Medicine - H&P: Meds Albuterol Sulfate [Ventolin Hfa] 2 puff IH Q4H PRN 09/02/15 [History] Fluticasone Propionate Nasal [Flonase] 50 mcg NS DAILY 05/27/16 [History] Montelukast [Singulair] 10 mg PO QPM 05/27/16 [History] Tiotropium [Spiriva] 18 mcg IH DAILY 05/27/16 [History] Albuterol Neb [Proventil Neb] 2.5 mg IH TID 07/11/17 [History] Aspirin 81 mg PO DAILY 07/11/17 [History] Benzonatate [Tessalon] 100 mg PO TID PRN 07/11/17 [History] Fluticasone/Vilanterol [Breo Ellipta 100-25 Mcg INH] 1 puff IH DAILY 07/11/17 [ History] Ibuprofen 200 mg PO Q6H PRN 07/11/17 [History] Loratadine [Claritin] 10 mg PO DAILY 07/11/17 [History] Nitroglycerin [Nitrostat] 0.4 mg SL Q5M PRN 07/11/17 [History] Azithromycin [Zithromax] 250 mg PO DAILY #2 tablet 11/08/17 [Rx] LORazepam [Ativan] 0.5 mg PO TID PRN 5 Days #5 tablet 11/08/17 [Rx] Omeprazole [PriLOSEC] 40 mg PO DAILY@0630 #30 capsule. 11/08/17 [Rx] predniSONE [PredniSONE] 20 mg PO TAPER #25 tablet 11/08/17 [Rx] 3 Allergy/AdvReac Type Severity Reaction Status Date / Time codeine Allergy Rash Verified 07/11/17 17:19 fluoxetine [From Prozac] Allergy Rash Verified 07/11/17 17:19 All Systems PM: A 10-system review of systems was performed and is negative for pertinent findings except as documented above in the HPI. - Constitutional Constitutional: malaise, no chills, no fever(s), no night sweats - Respiratory Respiratory: cough, dyspnea, wheezing, no excessive phlegm production - Gastrointestinal Gastrointestinal: no abdominal pain, no diarrhea, no hematemesis, no hematochezia, no melena, no nausea, no vomiting - Genitourinary Genitourinary: no change in urinary stream, no dysuria, no flank pain, no hematuria - Integumentary Integumentary IM: no rash, no unusual bruising - Neurological Neurological ROS: no confusion, no convulsions, no focal weakness, no numbness, no tingling, no tremor(s) - Constitutional Vitals: Temp Pulse Resp BP Pulse Ox 98.5 F 82 22 136/95 91 11/04/17 22:27 11/04/17 22:27 11/04/17 22:27 11/04/17 22:27 11/04/17 22:27 - Head Head exam: Present: atraumatic, normocephalic - Eye Eye exam: Present: PERRL, conjuntiva pink, sclera anicteric Pupils: Present: PERRL - Respiratory Respiratory exam: Present: rhonchi, wheezes - Cardiovascular Cardiovascular exam: Present: RRR, +S1, +S2. Absent: diastolic murmur, gallop, rubs, systolic murmur - GI/Abdominal GI/Abdominal exam: Present: normal bowel sounds, soft, no peritoneal signs. Absent: distended, tenderness - Extremities Exam Extremities exam: Present: warm, radial pulses palpable and symmetrical. Absent : calf tenderness, cyanotic, pedal edema Internal Med - H&P Results - Labs CBC & Chem 7: 11/06/17 04:10 11/06/17 04:10
[2017-11-04] MEDS ORDERED: Azithromycin 500 MG in D5% in Water 250 ML IVPB SCH (23:45)
[2017-11-04] MEDS ORDERED: Nitroglycerin 0.4 MG TAB.SUBL SL PRN (23:49)
[2017-11-04] MEDS ORDERED: Benzonatate 100 MG CAPSULE PO PRN (23:49)
[2017-11-05 01:15] LABS: Basophils % 0.3 %; Hematocrit 44.1 % (35.3-44.9); Hemoglobin 14.7 g/dL (11.5-15.4); Immature Granulocytes % 0.4 % (0-4); Lymphocytes # 1.1 K/mcL (0.6-4.6); Lymphocytes % 10.5 %; Mean Corpuscular HGB Conc 33.3 g/dL (31.6-35.5); Mean Corpuscular Hemoglobin 28.7 pg (28.0-33.3); Mean Corpuscular Volume 86.1 fL (83.0-100.0); Mean Platelet Volume 11.5 fL (9.4-12.4); Monocytes % 0.2 %; Platelet Count 232 K/mcL (140-400); Red Blood Count 5.12 M/mcL (3.82-4.97); Red Cell Distribution Width 14.4 % (11.5-14.5); Segmented Neutrophils % 88.6 %
[2017-11-05 01:31] LABS: Alanine Aminotransferase 21 Units/L (7-52); Albumin 4.1 g/dL (3.5-5.7); Albumin/Globulin Ratio 1.1 (1.1-2.2); Alkaline Phosphatase 97 Units/L (34-104); Aspartate Amino Transferase 27 Units/L (13-39); BUN/Creatinine Ratio 8 (6-26); Bilirubin,Total 0.5 mg/dL (0.3-1.0); Blood Urea Nitrogen 5 mg/dL (6-20); Calcium 9.1 mg/dL (8.6-10.3); Carbon Dioxide 22 mEq/L (23-29); Chloride 107 mEq/L (98-107); Globulin 3.7 g/dL (2.4-3.5); Glucose 142 mg/dL (70-105); Osmolality,Calculated 290 (280-300); Potassium 3.2 mEq/L (3.5-5.1); Sodium 140 mEq/L (136-145); Total Protein 7.8 g/dL (6.4-8.9); eGFR For African Americans > 60 (> 60); eGFR For Non-African Americans > 60 (> 60)
[2017-11-05] MEDS ORDERED: Albuterol 2.5 MG/3 ML NEBULIZER IH SCH (02:00)
[2017-11-05] MEDS: MethylPREDNISolone 40 MG/ML VIAL IVP SCH ×4 (02:23→18:06)
[2017-11-05] MEDS: Ipratropium/Albuterol Neb 3 ML IH SCH ×4 (04:35→23:04)
[2017-11-05] MEDS ORDERED: Potassium Chloride Elixir 20 MEQ/15 ML UDC PO ONE (05:10)
[2017-11-05] MEDS: *HR* Heparin 5,000 UNIT/ML VIAL SQ SCH ×2 (05:48→18:06)
[2017-11-05] MEDS: Aspirin 81 MG TAB.CHEW PO SCH (08:26)
[2017-11-05] MEDS: Loratadine 10 MG TABLET PO SCH (08:26)
[2017-11-05] MEDS: (Breo Ellipta 100-25 Mcg Inh) IH SCH (08:27)
[2017-11-05] MEDS: Fluticasone Propionate Nasal 50 MCG/SPRAY BOTTLE NS SCH (08:27)
[2017-11-05] MEDS ORDERED: Tiotropium 18 MCG inhalation IH SCH (09:00)
--- NOTE | 2017-11-05 10:51 | Internal Med Progress Note ---
Date of Encounter: 11/05/17 Time of Encounter: 10:48 - Assessment and plan (1) Tobacco abuse Current Visit: Yes Status: Acute Assessment and plan: I advised complete smoking cessation and emphasized the health benefits of smoking cessation. (2) Acute and chronic respiratory failure with hypoxia Current Visit: Yes Status: Acute Assessment and plan: Oxygen by nasal cannula to maintain saturation above 88%. (3) COPD exacerbation Current Visit: No Status: Acute Assessment and plan: Severe COPD exacerbation with profound hypoxemia. We will treat her with IV steroids - Solu-Medrol, antibiotics and inhaled bronchodilators. Chest x-ray reviewed personally shows diffuse interstitial pattern which is unchanged from 07/11/2017. No additional infiltrate. No pleural effusion or pneumothorax. PFTs done outpatient from July show severe airway obstructive pattern and limited diffusion. She may be a candidate for alpha 1 antitrypsin testing. I will consult pulmonology. I strongly encouraged smoking cessation. (4) DVT prophylaxis Current Visit: No Status: Acute Assessment and plan: Subcutaneous heparin as the patient is immobile/bedbound due to severe hypoxemia. (5) Hypokalemia Current Visit: Yes Status: Acute Assessment and plan: Replete potassium with oral potassium chloride. Check magnesium and potassium levels. - Subjective Interval history: Patient reports severe worsening shortness of breath for the past week. It had been extremely severe over the last 24 hours. She says that her oxygen saturation at home was in the 30s and 40s with continue supplemental oxygen at 4 L/m which is her chronic home dose. She presented to the emergency department and oxygen saturation was 68 with nasal cannula. She was placed on a nonrebreather. Currently she reports moderate shortness of breath at rest associated with cough which has been dry, denies fevers chills nausea vomiting and diarrhea. Her symptoms improved with rest and steroids. She does report insomnia while on steroids. - Constitutional Vitals: Temp Pulse Resp BP Pulse Ox 96.7 F L 73 18 103/73 92 11/05/17 06:46 11/05/17 06:46 11/05/17 06:46 11/05/17 06:46 11/05/17 08:30 - Eye Eye exam: Present: PERRL, conjuntiva pink, sclera anicteric Pupils: Present: PERRL - Respiratory Respiratory exam: Present: decreased breath sounds, rales. Absent: accessory muscle use, rhonchi, wheezes - Cardiovascular Cardiovascular exam: Present: RRR, +S1, +S2. Absent: diastolic murmur, gallop, rubs, systolic murmur - GI/Abdominal GI/Abdominal exam: Present: normal bowel sounds, soft, no peritoneal signs. Absent: distended, tenderness - Extremities Exam Extremities exam: Present: warm, radial pulses palpable and symmetrical. Absent : calf tenderness, cyanotic, pedal edema - Neurological Exam Neurological exam: Present: CN II-XII intact, oriented X3, no focal deficits. Absent: facial droop, speech deficit - Skin Skin exam: Present: dry, intact Internal Medicine: Result - Labs CBC & Chem 7: 11/05/17 01:01 11/05/17 01:01 Labs: Short CBC 11/05/17 Range/Units 01:01 WBC 10.2 (4.3-11.1) K/mcL Hgb 14.7 D (11.5-15.4) g/dL Hct 44.1 (35.3-44.9) % Plt Count 232 (140-400) K/mcL Neutrophils # 9.0 H (1.6-8.9) K/mcL BMP 11/05/17 01:01 Sodium 140 Potassium 3.2 L Chloride 107 Carbon Dioxide 22 L BUN 5 L Creatinine 0.63 Glucose 142 H Calcium 9.1 Liver Function 11/05/17 Range/Units 01:01 Total Bilirubin 0.5 (0.3-1.0) mg/dL AST 27 (13-39) Units/L ALT 21 (7-52) Units/L Alkaline Phosphatase 97 (34-104) Units/L Albumin 4.1 (3.5-5.7) g/dL Consult Discharge Plan - Plan Referrals: NONE,PCP [Primary Care Provider] -
[2017-11-05] MEDS: Levofloxacin 750 MG/150 ML 750 MG/150 ML BAG IVPB SCH (12:27)
[2017-11-05] MEDS ORDERED: *HR* LORazepam 0.5 MG TABLET PO ONE (16:17)
--- NOTE | 2017-11-05 18:06 | Pulmonology Consult Note ---
Date of Encounter: 11/05/17 Time of Encounter: 12:00 Assessment and Plan (1) Acute and chronic respiratory failure Current Visit: Yes Status: Acute Patient is coming with acute on chronic hypoxic respiratory failure secondary to COPD exacerbation . To continue O2 supplementation SPO2 around 88-90% Qualifiers: Respiratory failure complication: hypoxia Qualified Code(s): J96.21 - Acute and chronic respiratory failure with hypoxia (2) COPD exacerbation Current Visit: No Status: Acute Patient presenting with COPD exacerbation to continue bronchodilators , steroids and antibiotics . On discharge send her on a 21 days of steroid taper with 7 days of antibiotics to continue home bronchodilator regimen (3) Pulmonary fibrosis Current Visit: Yes Status: Acute Patient has chronic intersitial fibrosis . History of Present Illness Consult date: 11/05/17 Requesting physician: Duane Kirby Reason for consult: COPD, pulmonary fibrosis Chief complaint: Shortness of breadth History of present illness: 52 year old female with chronic smoker still smoking , Severe COPD O2 dependent , Pulmonary fibrosis comes with shortness of breadth , cough not much sputum production , denies any chest pain or tightness , denies any palpitations or syncope , denies any fever or chills , has on and off GERD , denies any neuro symptoms CXR didnt show any new infiltrates has chronic interstitial changes referred for acute worsening of chronic hypoxic respiratory failure pulmonary was consulted for worsening of acute on chronic hypoxic respiratory failure . Past Med Surg Social Fam HX - Past Medical History Medical history: asthma, COPD Psychiatric history: no psych history - Past Surgical History Surgical History: non-contributory - Social History Smoking Status: Current every day smoker Smokeless Tobacco Status: No Alcohol use: none Drug use: none - Family History Mother Living Status: Still Living Hx Family Cardiac Disorders: Yes Hx Family Endocrine Disorder: Yes (dm) Sister Hx Family Cardiac Disorders: Yes Medications and Allergies Albuterol Sulfate [Ventolin Hfa] 2 puff IH Q4H PRN 09/02/15 [History] Fluticasone Propionate Nasal [Flonase] 50 mcg NS DAILY 05/27/16 [History] Montelukast [Singulair] 10 mg PO QPM 05/27/16 [History] Tiotropium [Spiriva] 18 mcg IH DAILY 05/27/16 [History] Albuterol Neb [Proventil Neb] 2.5 mg IH TID 12/05/17 [History] Aspirin 81 mg PO DAILY 07/11/17 [History] Benzonatate [Tessalon] 100 mg PO TID PRN 07/11/17 [History] Fluticasone/Vilanterol [Breo Ellipta 100-25 Mcg INH] 1 puff IH DAILY 07/11/17 [ History] Ibuprofen 200 mg PO Q6H PRN 07/11/17 [History] Loratadine [Claritin] 10 mg PO DAILY 07/11/17 [History] Nitroglycerin [Nitrostat] 0.4 mg SL Q5M PRN 07/11/17 [History] 3 Allergy/AdvReac Type Severity Reaction Status Date / Time codeine Allergy Rash Verified 07/11/17 17:19 fluoxetine [From Prozac] Allergy Rash Verified 07/11/17 17:19 All Systems: The remainder of the systems were reviewed and are negative Physical Examination Vital Signs: Vital Signs, Last 4 Hours Temp Pulse Resp BP Pulse Ox 11/05/17 16:33 18 95 11/05/17 16:15 97.7 F 70 18 131/87 95 Effort: mildly labored Auscultation: bilateral: wheezes, other (scattered crackles ) Results - Laboratory Findings CBC and BMP: 11/05/17 01:01 11/05/17 01:01 Abnormal lab findings: Abnormal lab results RBC 5.12 M/mcL (3.82-4.97) H 11/05/17 01:01 Neutrophils # 9.0 K/mcL (1.6-8.9) H 11/05/17 01:01 Potassium 3.2 mEq/L (3.5-5.1) L 11/05/17 01:01 Carbon Dioxide 22 mEq/L (23-29) L 11/05/17 01:01 BUN 5 mg/dL (6-20) L 11/05/17 01:01 Glucose 142 mg/dL (70-105) H 11/05/17 01:01 B-Natriuretic Peptide 666 pg/mL (Less than 100) H 11/04/17 19:30 Globulin 3.7 g/dL (2.4-3.5) H 11/05/17 01:01 Consult Discharge Plan - Plan Referrals: NONE,PCP [Primary Care Provider] -
[2017-11-06] MEDS: MethylPREDNISolone 40 MG/ML VIAL IVP SCH ×3 (01:12→11:46)
[2017-11-06] MEDS: Temazepam 15 MG CAPSULE PO PRN ×2 (01:17→22:58)
[2017-11-06 04:31] LABS: Basophils % 0.1 %; Hematocrit 45.4 % (35.3-44.9); Hemoglobin 14.6 g/dL (11.5-15.4); Immature Granulocytes % 0.7 % (0-4); Lymphocytes # 1.7 K/mcL (0.6-4.6); Lymphocytes % 7.8 %; Mean Corpuscular HGB Conc 32.2 g/dL (31.6-35.5); Mean Corpuscular Hemoglobin 28.5 pg (28.0-33.3); Mean Corpuscular Volume 88.5 fL (83.0-100.0); Mean Platelet Volume 11.5 fL (9.4-12.4); Monocytes # 0.4 K/mcL (0.0-1.3); Monocytes % 1.9 %; Neutrophils # 19.9 K/mcL (1.6-8.9); Platelet Count 248 K/mcL (140-400); Red Blood Count 5.13 M/mcL (3.82-4.97); Red Cell Distribution Width 14.6 % (11.5-14.5); Segmented Neutrophils % 89.5 %
[2017-11-06 04:51] LABS: BUN/Creatinine Ratio 13 (6-26); Blood Urea Nitrogen 9 mg/dL (6-20); Calcium 9.5 mg/dL (8.6-10.3); Carbon Dioxide 23 mEq/L (23-29); Chloride 108 mEq/L (98-107); Glucose 149 mg/dL (70-105); Magnesium 1.8 mg/dL (1.6-2.6); Osmolality,Calculated 287 (280-300); Potassium 4.3 mEq/L (3.5-5.1); Sodium 138 mEq/L (136-145); eGFR For African Americans > 60 (> 60); eGFR For Non-African Americans > 60 (> 60)
[2017-11-06] MEDS: Ipratropium/Albuterol Neb 3 ML IH SCH ×4 (05:01→23:29)
[2017-11-06] MEDS: *HR* Heparin 5,000 UNIT/ML VIAL SQ SCH ×2 (05:29→18:14)
[2017-11-06] MEDS: Aspirin 81 MG TAB.CHEW PO SCH (09:20)
[2017-11-06] MEDS: Loratadine 10 MG TABLET PO SCH (09:20)
[2017-11-06] MEDS: Fluticasone Propionate Nasal 50 MCG/SPRAY BOTTLE NS SCH (09:20)
[2017-11-06] MEDS: *HR* LORazepam 0.5 MG TABLET PO PRN ×2 (09:20→22:18)
[2017-11-06] MEDS: Levofloxacin 750 MG/150 ML 750 MG/150 ML BAG IVPB SCH (09:21)
[2017-11-06] MEDS: (Breo Ellipta 100-25 Mcg Inh) IH SCH (09:30)
--- NOTE | 2017-11-06 12:37 | Electrocardiograph Report ---
[address] [address] Test Date: 2017-11-04 Pat Name: Shahrzad Varner Department: 103 Room: 2N14 Gender: F [employer] V[employer] Supervisor: t : 1965 Requested By: Debo Mathews Order Number: [id number] Reading MD: Geovani Iglesias Measurements Intervals [place] Rate: 84 P: 63 RI: 169 QRS: 101 QRSD: 92 T: 31 QT: 384 QTc: 425 Interpretive Statements SINUS RHYTHM LEFT ATRIAL ENLARGEMENT MARKED RIGHT AXIS DEVIATION Poor R wave progression BASELINE ARTIFACT Electronically Signed On 11-06-2017 12:35:41 EDT by Geovani Iglesias
--- NOTE | 2017-11-06 15:34 | Internal Med Progress Note ---
<Yash Leal - Last Filed: 11/06/17 15:32> Date of Encounter: 11/06/17 Time of Encounter: 15:32 - Assessment and plan (1) Acute and chronic respiratory failure Current Visit: Yes Status: Acute Assessment and plan: 2nd to copd exacerbation on 5L O2 continue to wean down goal of O2 >88% Qualifiers: Respiratory failure complication: hypoxia Qualified Code(s): J96.21 - Acute and chronic respiratory failure with hypoxia (2) COPD exacerbation Current Visit: Yes Status: Acute Assessment and plan: continue levaquin, switch to PO steroids, nebulizer treatments. Continue Tessalon as needed for cough. (3) DVT prophylaxis Current Visit: Yes Status: Acute Assessment and plan: Heparin subcutaneous (4) Hypokalemia Current Visit: Yes Status: Resolved Assessment and plan: Resolved. 4.3 today (5) Pulmonary fibrosis Current Visit: Yes Status: Chronic Assessment and plan: Patient has history of pulmonary fibrosis. Follow-up with leather belt shaper outpatient. (6) Tobacco abuse Current Visit: Yes Status: Acute Assessment and plan: patient educated on benefits of smoking cessation - Subjective Interval history: Patient reports shortness of breath has improved however she continues to desaturate with activity on 5 L oxygen below 70%. She reports she smokes 4 to 5 cigarettes a day. She denies headache, sore throat, cough, chest pain, abdominal pain. - Constitutional Vitals: Temp Pulse Resp BP Pulse Ox 97.6 F 76 18 134/85 97 11/06/17 11:12 11/06/17 11:12 11/06/17 11:12 11/06/17 11:12 11/06/17 11:12 - Other Additional findings: General: Pleasant without distress Heart: Regular rate and rhythm with no murmur Lungs: Bilateral wheezing Abdomen: Soft nontender, nondistended positive bowel sounds Skin: warm and dry Extremities: Absent pedal edema, Neuro: Alert oriented 3 Vascular: Pedal and radial pulses 2 out of 4 Internal Medicine: Result - Labs CBC & Chem 7: 11/06/17 04:10 11/06/17 04:10 Labs: Short CBC 11/06/17 Range/Units 04:10 WBC 22.2 H D (4.3-11.1) K/mcL Hgb 14.6 (11.5-15.4) g/dL Hct 45.4 H (35.3-44.9) % Plt Count 248 (140-400) K/mcL Neutrophils # 19.9 H (1.6-8.9) K/mcL [facility] 11/06/17 04:10 Sodium 138 Potassium 4.3 Chloride 108 H Carbon Dioxide 23 BUN 9 Creatinine 0.70 Glucose 149 H Calcium 9.5 Consult Discharge Plan - Plan Referrals: Cynthia Clark CNP [Advanced Practice Nurse] - 11/13/17 1:30 pm (Please arrive 30 mins. early. Take your picture ID, Insurance card , all medications in the bottles. If you need to cancel please call [phone] by Monday to cancel. ) <Vic Pennington - Last Filed: 11/06/17 15:59> Date of Encounter: 11/06/17 - Constitutional Vitals: Temp Pulse Resp BP Pulse Ox 97.6 F 76 18 134/85 97 11/06/17 11:12 11/06/17 11:12 11/06/17 11:12 11/06/17 11:12 11/06/17 11:12 Internal Medicine: Result - Labs CBC & Chem 7: 11/06/17 04:10 11/06/17 04:10 Labs: Short CBC 11/06/17 Range/Units 04:10 WBC 22.2 H D (4.3-11.1) K/mcL Hgb 14.6 (11.5-15.4) g/dL Hct 45.4 H (35.3-44.9) % Plt Count 248 (140-400) K/mcL Neutrophils # 19.9 H (1.6-8.9) K/mcL [facility] 11/06/17 04:10 Sodium 138 Potassium 4.3 Chloride 108 H Carbon Dioxide 23 BUN 9 Creatinine 0.70 Glucose 149 H Calcium 9.5 - Attending Attestation I performed an independent interview and examine this patient. I agree with the findings, assessment, and plan of Dr. Leal, internal medicine credit intern. Patient continues on 5 L of oxygen per nasal cannula but is slowly improving. Change antibiotic and steroids to oral. Continue aggressive bronchopulmonary toilet. Increase activity as tolerated. Anticipate discharge tomorrow if continues to improve. Exam General: No acute distress but does have full sentence dyspnea Skin warm and dry Neck is supple Lungs - diminished breath sounds bilaterally, occasional expiratory wheeze Regular rate and rhythm without murmur Abdomen soft nontender Extremities no edema Neurological nonfocal.
[2017-11-06] MEDS ORDERED: Saline Nasal Spray 44 ML BOTTLE NS PRN (18:10)
[2017-11-07] MEDS: Ipratropium/Albuterol Neb 3 ML IH SCH ×4 (04:38→22:59)
[2017-11-07] MEDS: *HR* Heparin 5,000 UNIT/ML VIAL SQ SCH ×2 (05:52→17:09)
[2017-11-07] MEDS ORDERED: levoFLOXacin 750 MG TABLET PO SCH (09:00)
[2017-11-07] MEDS: Aspirin 81 MG TAB.CHEW PO SCH (09:04)
[2017-11-07] MEDS: Fluticasone Propionate Nasal 50 MCG/SPRAY BOTTLE NS SCH (09:04)
[2017-11-07] MEDS: Loratadine 10 MG TABLET PO SCH (09:04)
[2017-11-07] MEDS: predniSONE 20 MG TABLET PO SCH (09:04)
[2017-11-07] MEDS: (Breo Ellipta 100-25 Mcg Inh) IH SCH (09:21)
--- NOTE | 2017-11-07 10:25 | Internal Med Progress Note ---
<Yash Leal - Last Filed: 11/07/17 10:22> Date of Encounter: 11/07/17 Time of Encounter: 10:22 - Assessment and plan (1) Acute and chronic respiratory failure Current Visit: Yes Status: Acute Assessment and plan: 2nd to copd exacerbation on 5L O2 continue to wean down continues to desaturate with activity down to 70%. goal of O2 >88% Qualifiers: Respiratory failure complication: hypoxia Qualified Code(s): J96.21 - Acute and chronic respiratory failure with hypoxia (2) COPD exacerbation Current Visit: Yes Status: Acute Assessment and plan: continue levaquin, continue steroids, nebulizer treatments. Continue Tessalon as needed for cough. (3) DVT prophylaxis Current Visit: Yes Status: Acute Assessment and plan: Heparin subcutaneous (4) Pulmonary fibrosis Current Visit: Yes Status: Chronic Assessment and plan: Patient has history of pulmonary fibrosis. Follow-up with mobile development manager outpatient. (5) Tobacco abuse Current Visit: Yes Status: Acute Assessment and plan: patient educated on benefits of smoking cessation - Subjective Interval history: Shortness of breath has improved however she continues to desaturate with activity on 5 L oxygen below 70%. She reports she smokes 4 to 5 cigarettes a day. She denies headache, sore throat, cough, chest pain, abdominal pain. At this point we will continue to monitor patient and treat her COPD exacerbation until her oxygen requirements decrease. - Constitutional Vitals: Temp Pulse Resp BP Pulse Ox 97.9 F 65 18 101/63 93 11/07/17 07:31 11/07/17 09:18 11/07/17 09:11 11/07/17 07:31 11/07/17 09:11 - Other Additional findings: General: Pleasant without distress Heart: Regular rate and rhythm with no murmur Lungs: Bilateral wheezing improved Abdomen: Soft nontender, nondistended positive bowel sounds Skin: warm and dry Extremities: Absent pedal edema, Neuro: Alert oriented 3 Vascular: Pedal and radial pulses 2 out of 4 Internal Medicine: Result - Labs CBC & Chem 7: 11/06/17 04:10 11/06/17 04:10 Consult Discharge Plan - Plan Referrals: Cynthia Clark MILKING MACHINE OPERATOR [Advanced Practice Nurse] - 11/13/17 1:30 pm (Please arrive 30 mins. early. Take your picture ID, Insurance card , all medications in the bottles. If you need to cancel please call [phone] by Monday to cancel. ) <Vic Pennington Tomás - Last Filed: 11/07/17 12:21> Date of Encounter: 11/07/17 - Constitutional Vitals: Temp Pulse Resp BP Pulse Ox 97.7 F 63 15 104/69 94 11/07/17 11:28 11/07/17 11:28 11/07/17 11:28 11/07/17 11:28 11/07/17 11:28 Internal Medicine: Result - Labs CBC & Chem 7: 11/06/17 04:10 11/06/17 04:10 - Attending Attestation I performed an independent interview and examine this patient. I agree with the findings, assessment, and plan of , internal medicine resident. My input is reflected in his note. Patient continues to improve with symptomatic standpoint but is still on 5 L of oxygen. Will give 1 dose of IV Lasix to see if this might improve her oxygenation. She has significant crackles at her bases and an elevated BNP. Her abnormal lung exam could be due to pulmonary fibrosis itself, but cannot rule out mild volume overload as well.
[2017-11-07] MEDS ORDERED: Furosemide 40 MG/4 ML VIAL IVP ONE (12:22)
[2017-11-07] MEDS: *HR* LORazepam 0.5 MG TABLET PO PRN (21:17)
[2017-11-07] MEDS: Budesonide/Formoterol 160/4.5 MDI IH SCH (22:59)
[2017-11-08] MEDS: Temazepam 15 MG CAPSULE PO PRN (00:35)
[2017-11-08] MEDS: Ipratropium/Albuterol Neb 3 ML IH SCH ×3 (04:24→16:45)
[2017-11-08] MEDS: *HR* Heparin 5,000 UNIT/ML VIAL SQ SCH (05:42)
[2017-11-08] MEDS: Fluticasone Propionate Nasal 50 MCG/SPRAY BOTTLE NS SCH (08:14)
[2017-11-08] MEDS: Loratadine 10 MG TABLET PO SCH (08:14)
[2017-11-08] MEDS: predniSONE 20 MG TABLET PO SCH (08:15)
[2017-11-08] MEDS: Aspirin 81 MG TAB.CHEW PO SCH (08:15)
--- NOTE | 2017-11-08 08:30 | Discharge Summary ---
<Yash Leal - Last Filed: 11/08/17 10:31> Date of Encounter: 11/08/17 Time of Encounter: 10:31 - Discharge Diagnosis (1) Acute and chronic respiratory failure Priority: Primary Status: Resolved Qualifiers: Respiratory failure complication: hypoxia Qualified Code(s): J96.21 - Acute and chronic respiratory failure with hypoxia (2) COPD exacerbation Priority: Secondary Status: Resolved (3) DVT prophylaxis Priority: Secondary Status: Acute (4) Pulmonary fibrosis Priority: Secondary Status: Chronic (5) Tobacco abuse Priority: Secondary Status: Chronic Hospital course: Ms. Varner is a 52 year old female with stage IV COPD presented with chief complaint of Shortness of breath. Patient was diagnosed with COPD exacerbation. Patient required increased oxygen supplementation compared to her home dose of 4 L. She was given antibiotics, steroids, nebulizer treatments. Patient is a long-time smoker and continues to smoke 4-5 cigarettes a day. She was educated extensively on smoking cessation. Pulmonology was consulted and reported the patient has chronic interstitial fibrosis secondary to tobacco use and she received 7 days of antibiotics and 21 day steroid taper after discharge. Patient was weaned down to her home dose of 4 L oxygen she is able to ambulate independently and tolerate her diet. Patient also reported having gastric reflux symptoms and some abdominal pain and bloating. She was started on omeprazole which resolved the symptoms. Patient will go home with 2 additional days of antibiotics, omeprazole, prednisone taper. She was also given a 5 day supply of Ativan for anxiety. Patient was advised to follow-up with her PCP for evaluation of anxiety and proper for long-term treatment. - Time Spent with Patient Total time spent providing and/or coordinating discharge services: - Discharge Medications Prescriptions: Azithromycin [Zithromax] 250 mg PO DAILY #2 tablet LORazepam [Ativan] 0.5 mg PO TID PRN 5 Days #5 tablet PRN Reason: Anxiety Omeprazole [PriLOSEC] 40 mg PO DAILY@629 #30 capsule. predniSONE [PredniSONE] 20 mg PO TAPER #25 tablet Home Medications: Albuterol Sulfate [Ventolin Hfa] 2 puff IH Q4H PRN 09/02/15 [History] Fluticasone Propionate Nasal [Flonase] 50 mcg NS DAILY 05/27/16 [History] Montelukast [Singulair] 10 mg PO QPM 05/27/16 [History] Tiotropium [Spiriva] 18 mcg IH DAILY 05/27/16 [History] Albuterol Neb [Proventil Neb] 2.5 mg IH TID 07/11/17 [History] Aspirin 81 mg PO DAILY 07/11/17 [History] Benzonatate [Tessalon] 100 mg PO TID PRN 07/11/17 [History] Fluticasone/Vilanterol [Breo Ellipta 100-25 Mcg INH] 1 puff IH DAILY 07/11/17 [ History] Ibuprofen 200 mg PO Q6H PRN 07/11/17 [History] Loratadine [Claritin] 10 mg PO DAILY 07/11/17 [History] Nitroglycerin [Nitrostat] 0.4 mg SL Q5M PRN 07/11/17 [History] Azithromycin [Zithromax] 250 mg PO DAILY #2 tablet 11/08/17 [Rx] LORazepam [Ativan] 0.5 mg PO TID PRN 5 Days #5 tablet 11/08/17 [Rx] Omeprazole [PriLOSEC] 40 mg PO DAILY@0630 #30 capsule. 11/08/17 [Rx] predniSONE [PredniSONE] 20 mg PO TAPER #25 tablet 11/08/17 [Rx] Allergies/Adverse Reactions: 3 Allergy/AdvReac Type Severity Reaction Status Date / Time codeine Allergy Rash Verified 07/11/17 17:19 fluoxetine [From Prozac] Allergy Rash Verified 07/11/17 17:19 Date of admission: 11/05/17 10:38 Primary care physician: PCP NONE Consults: 11/05/17 16:17 Consult to Yeast Tender [CONS] Routine Reason for SW Consult: home oxygen therapy, wanting meals on wheels and home health Discharging clinician: Yash Leal Anticipated date of discharge: 11/08/17 - Constitutional Vitals: Temp Pulse Resp BP Pulse Ox 97.9 F 64 22 104/74 90 11/08/17 06:51 11/08/17 08:21 11/08/17 08:19 11/08/17 06:51 11/08/17 08:19 - Other Additional findings: General: without distress HEENT: Head atraumatic, normocephalic, EOMI, PERRL, neck nontender to palpation , absent lymphadenopathy, Moist Mucous Membranes, Heart: Regular rate and rhythm with no murmur Lungs: Clear to auscultation bilaterally Abdomen: Soft nontender, nondistended positive bowel sounds Skin: warm and dry Extremities: Absent pedal edema, Neuro: Cranial nerves II through XII intact, UE and LE sensation equal bilaterally, UE and LEstrength 5/5, alert oriented 3, Vascular: Pedal and radial pulses 2 out of 4 - Patient Status Disposition: Home, Self-Care Condition: Fair Functional capacity at discharge: independent ambulation Overall status at discharge: patient is progressing back to baseline - Discharge Instructions Instructions: Chronic Obstructive Pulmonary Disease (DC), Pneumonia (DC) Follow Up With: Cynthia Clark CNP [Advanced Practice Nurse] - 11/13/17 1:30 pm (Please arrive 30 mins. early. Take your picture ID, Insurance card , all medications in the bottles. If you need to cancel please call [phone] by Monday to cancel. ) Donta Ham MD [Partnered Physician] - - Diet and Activity Activity: increase activity as tolerated, wear oxygen at all times Diet: low fat, low cholesterol, low salt diet <Vic Pennington - Last Filed: 11/08/17 15:54> Date of Encounter: 11/08/17 Hospital course: Ms. Varner is a 52 year old female - Time Spent with Patient Total time spent providing and/or coordinating discharge services: Date of admission: 11/05/17 10:38 Primary care physician: PCP NONE Consults: 11/05/17 16:17 Consult to Yeast Tender [CONS] Routine Reason for SW Consult: home oxygen therapy, wanting meals on wheels and home health - Constitutional Vitals: Temp Pulse Resp BP Pulse Ox 97.9 F 69 24 106/76 93 11/08/17 11:11 11/08/17 11:51 11/08/17 11:11 11/08/17 11:11 11/08/17 11:11 - Attending Attestation I performed an independent interview and examine this patient. I agree with the findings, assessment, and plan of Dr. Leal, internal medicine resident. 38 minutes spent on discharge and coordination of care. Patient continues on supplement oxygen currently at 4 L per nasal cannula. This may likely be her new baseline oxygen requirement. She will continue with a 21 day steroid taper. {Pt's white blood cell count did increase but this was felt to be due to steroids as clinically she was showing ongoing improvement on a daily basis. She otherwise was improved and deemed stable for discharge. She absolutely has to quit smoking and this was emphasized to her, and she voiced understanding of this. Also patient is aware that smoking while wearing oxygen could cause an explosion causing severe injury and/or .
[2017-11-08] MEDS ORDERED: Azithromycin 250 MG TABLET PO SCH (09:00)
[2017-11-08] MEDS: Budesonide/Formoterol 160/4.5 MDI IH SCH (10:25)
--- NOTE | 2017-11-08 10:51 | Physician Discharge Referral ---
Home Health/Hosp Referral Info Transfer to: Home Health Attending Provider: Dr. rivera Provider in Charge Post Discharge: PCP - Diagnosis (1) Acute and chronic respiratory failure Priority: Primary Status: Resolved (2) COPD exacerbation Priority: Secondary Status: Resolved (3) DVT prophylaxis Priority: Secondary Status: Acute (4) Pulmonary fibrosis Priority: Secondary Status: Chronic (5) Tobacco abuse Priority: Secondary Status: Chronic - Respiratory Orders Oxygen / L per min (4L) Smoking Cessation: Smoking cessation has been advised. For more information, call the [employer] Quit Line at 2-082-UQEO-NOW. - Diet/Nutrition Diet/Nutrition Orders: Cardiac - Activity Activity Orders: Up ad roberta - Services Needed Following services are medically necessary services: Home Health Aide (Patient would like help with managing her medications.) - Transfer Medications Prescriptions: Azithromycin [Zithromax] 250 mg PO DAILY #2 tablet LORazepam [Ativan] 0.5 mg PO TID PRN 5 Days #5 tablet PRN Reason: Anxiety Omeprazole [PriLOSEC] 40 mg PO DAILY@0630 #30 capsule. predniSONE [PredniSONE] 20 mg PO TAPER #25 tablet Home Medications: Albuterol Sulfate [Ventolin Hfa] 2 puff IH Q4H PRN 09/02/15 [History] Fluticasone Propionate Nasal [Flonase] 50 mcg NS DAILY 05/27/16 [History] Montelukast [Singulair] 10 mg PO QPM 05/27/16 [History] Tiotropium [Spiriva] 18 mcg IH DAILY 05/27/16 [History] Albuterol Neb [Proventil Neb] 2.5 mg IH TID 07/11/17 [History] Aspirin 81 mg PO DAILY 07/11/17 [History] Benzonatate [Tessalon] 100 mg PO TID PRN 07/11/17 [History] Fluticasone/Vilanterol [Breo Ellipta 100-25 Mcg INH] 1 puff IH DAILY 07/11/17 [ History] Ibuprofen 200 mg PO Q6H PRN 07/11/17 [History] Loratadine [Claritin] 10 mg PO DAILY 07/11/17 [History] Nitroglycerin [Nitrostat] 0.4 mg SL Q5M PRN 07/11/17 [History] Azithromycin [Zithromax] 250 mg PO DAILY #2 tablet 11/08/17 [Rx] LORazepam [Ativan] 0.5 mg PO TID PRN 5 Days #5 tablet 11/08/17 [Rx] Omeprazole [PriLOSEC] 40 mg PO DAILY@30 #30 capsule. 11/08/17 [Rx] predniSONE [PredniSONE] 20 mg PO TAPER #25 tablet 11/08/17 [Rx] Allergies/Adverse Reactions: 3 Allergy/AdvReac Type Severity Reaction Status Date / Time codeine Allergy Rash Verified 07/11/17 17:19 fluoxetine [From Prozac] Allergy Rash Verified 07/11/17 17:19 Certification: Further, I certify that my clinical findings support that this patient is homebound (i.e. absences from home require considerable and taxing effort and are for medical reasons or spiritism services or infrequently or short duration when for other reasons) because: Homebound Reason: Patient requires assistance of a person or device to safely leave home, Leaving home requires considerable and taxing effort due to condition Attestation: My signature below is to certify that this patient is under my care and that I, or nurse practitioner, or a physician's assistant manager pt working with me, has a face-to -face encounter with this patient.
[2017-11-08 11:13] VITALS: BP 106/76
== END 2017-11-08 17:40 | disposition home or self-care (01) | DRG 140 ==
LOC: 2NNU 19:04 → EMEROO 19:04 → 2NNU 22:09
PROVIDERS: ADMIT Internal Medicine Nephrology; ATTEND Internal Medicine

== ENCOUNTER 2018-03-23 21:07 | Inpatient (IN) ==
[2018-03-23] MEDS ORDERED: Nitroglycerin 0.4 MG TAB.SUBL SL PRN (23:25)
[2018-03-23] MEDS ORDERED: Ibuprofen 200 MG TABLET PO PRN (23:25)
[2018-03-23] MEDS ORDERED: Potassium Chloride Elixir 20 MEQ/15 ML UDC PO ONE (23:39)
--- NOTE | 2018-03-23 23:45 | Internal Med History&Physical ---
Date of Encounter: 03/24/18 Time of Encounter: 23:45 Internal Medicine - H&P: HPI Chief complaint: SOB Admitted From: Home Plans for Post Hospital Care: Home History of present illness: Shahrzad Varner is a 52 year old woman with stage IV COPD but continues to smoke actively, last admitted here 4 months ago for acute on chronic respiratory failure due to COPD exacerbation and presents now on transfer from [place] where she went in with complaints of increasing dyspnea over the past 2 weeks and significantly worsened by physical exertion. She has had to increase her home oxygen flow and frequently use her nebulizer. She also admits to cough but that it has been dry. She has had very poor oral intake, reduce urine output and complains of generalized aches. On arrival here she was saturating in the 80s while on 4L and I escalated to a NRBM in which she remained comfortably in the high 90s. She denies pleuritic chest pain or pressure, fever and chills but is notably dyspneic with shortened sentences. Past Med Surg Social Fam HX - Past Medical History Medical history: asthma, COPD Additional medical history: stage 4 lung ca Psychiatric history: no psych history - Past Surgical History Surgical History: non-contributory Additional surgical history: ectopic pregnancies - Social History Smoking Status: Current every day smoker Smokeless Tobacco Status: No Alcohol use: none Drug use: none - Family History Mother Living Status: Still Living Hx Family Cardiac Disorders: Yes Hx Family Endocrine Disorder: Yes (dm) Sister Hx Family Cardiac Disorders: Yes Internal Medicine - H&P: Meds Albuterol Sulfate [Ventolin Hfa] 2 puff IH Q4H PRN 09/02/15 [History] Fluticasone Propionate Nasal [Flonase] 1 spr NS DAILY 05/27/16 [History] Montelukast [Singulair] 10 mg PO QPM 05/27/16 [History] Tiotropium [Spiriva] 18 mcg IH DAILY 05/27/16 [History] Aspirin 81 mg PO DAILY 07/11/17 [History] Ibuprofen 200 mg PO Q6H PRN 07/11/17 [History] Loratadine [Claritin] 10 mg PO DAILY 07/11/17 [History] Nitroglycerin [Nitrostat] 0.3 mg SL Q5M PRN 07/11/17 [History] diazePAM [Valium] 5 mg PO TID 03/11/18 [History] BuPROPion XL (24 HR) [Wellbutrin XL] 150 mg PO DAILY 03/23/18 [History] Fluticasone/Vilanterol [Breo Ellipta 100-25 Mcg INH] 1 puff IH DAILY 03/23/18 [ History] Omeprazole [PriLOSEC] 20 mg PO DAILY@0630 03/23/18 [History] 3 Allergy/AdvReac Type Severity Reaction Status Date / Time codeine Allergy Rash Verified 07/11/17 17:19 fluoxetine [From Prozac] Allergy Rash Verified 07/11/17 17:19 gabapentin Allergy Swelling Verified 03/11/18 17:14 of Lip/Tongue/Throat divalproex sodium AdvReac See Verified 03/11/18 16:35 [From Depakote] Comments All Systems PM: A 10-system review of systems was performed and is negative for pertinent findings except as documented above in the HPI. - Constitutional Vitals: Temp Pulse Resp BP Pulse Ox 97.8 F 61 22 108/52 96 03/23/18 22:56 03/23/18 22:56 03/23/18 22:56 03/23/18 22:56 03/23/18 22:56 Exam: Vitals: Reviewed General: Cachectic appearing female lying in bed in moderate respiratory distress Skin: Flushed and dry HEENT: Dry mucous membranes. Mild conjunctivae pallor. Neck: No lymphadenopathy. No JVD. No carotid bruits. No palpable thyroid. Chest: Diminished thoracic expansion with reduced air entry and scattered wheezes and rhonchi. Heart: Tachycardic Abdomen: Non-distended, soft and non-tender to palpation. Extremities: (+) fingernail clubbing but no cyanosis or edema. Neurological: Awake, alert and oriented to person, place and time. No focal deficits. Psych: Affect appropriate. - Assessment and plan (1) Acute and chronic respiratory failure with hypoxia Current Visit: Yes Status: Acute Assessment and plan: Acute on chronic hypoxic respiratory failure secondary to COPD exacerbation complicated by smoking. Will place on IV steroids, q4hr nebulizer therapy and 3 day course of azithromycin. Supplemental oxygen to maintain SpO2 >92%. ABG done prior to transfer shows respiratory alkalosis and hypoxemia with no hypercarbia. (2) COPD (chronic obstructive pulmonary disease) Current Visit: Yes Status: Acute Assessment and plan: She has stage IV disease with signs of fibrosis on x-ray. She will benefit from pulmonology and palliative care assessment. Once more stable, can stop duonebs and transition back to LABA/ICS and tiotropium with albuterol prn. May need to consider roflumilast given the frequency of exacerbations. Qualifiers: COPD type: COPD with acute exacerbation Qualified Code(s): J44.1 - Chronic obstructive pulmonary disease with (acute) exacerbation (3) Tobacco dependence Current Visit: Yes Status: Acute Assessment and plan: Ongoing counseling given on the need to stop this habit to avoid faster progression of her lung disease. Resources made available. (4) Hypokalemia Current Visit: Yes Status: Acute Assessment and plan: Received 10mEq at ER. Will give 40mEq now and recheck. Will likely still be hypokalemic from ongoing albuterol. If need be will supplement in her IV infusion. (5) Depression Current Visit: Yes Status: Chronic Assessment and plan: Will continue her home antidepressants. Qualifiers: Depression Type: unspecified Qualified Code(s): F32.9 - Major depressive disorder, single episode, unspecified (6) Dehydration Current Visit: Yes Status: Acute Assessment and plan: Her physical state is notable for a dehydrated condition. Will give IVF and re-evaluate. (7) DVT prophylaxis Current Visit: Yes Status: Acute Assessment and plan: SubQ heparin. - Time Spent With Patient Total time spent is greater than 50% in coordination of care (as documented) at patient's floor/unit and/or counseling patient: Greater than 35 minutes
[2018-03-24] MEDS: Ipratropium/Albuterol Neb 3 ML IH SCH ×6 (00:03→21:07)
[2018-03-24] MEDS: Ringers Solution, Lactated 1,000 ML IVC SCH ×2 (00:54→13:54)
[2018-03-24] MEDS: diazePAM 5 MG TABLET PO PRN ×3 (00:57→18:55)
[2018-03-24 05:18] LABS: Basophils % 0.3 %; Hematocrit 38.9 % (35.3-44.9); Immature Granulocytes % 0.4 % (0-4); Lymphocytes # 1.4 K/mcL (0.6-4.6); Lymphocytes % 18.5 %; Mean Corpuscular HGB Conc 33.4 g/dL (31.6-35.5); Mean Corpuscular Hemoglobin 29.5 pg (28.0-33.3); Mean Corpuscular Volume 88.2 fL (83.0-100.0); Mean Platelet Volume 11.2 fL (9.4-12.4); Monocytes # 0.1 K/mcL (0.0-1.3); Monocytes % 0.7 %; Neutrophils # 5.8 K/mcL (1.6-8.9); Platelet Count 281 K/mcL (140-400); Red Blood Count 4.41 M/mcL (3.82-4.97); Red Cell Distribution Width 14.8 % (11.5-14.5); Segmented Neutrophils % 80.1 %
[2018-03-24 05:42] LABS: Alanine Aminotransferase 7 Units/L (7-52); Albumin 3.3 g/dL (3.5-5.7); Alkaline Phosphatase 60 Units/L (34-104); Aspartate Amino Transferase 15 Units/L (13-39); BUN/Creatinine Ratio 7 (6-26); Bilirubin,Total 0.5 mg/dL (0.3-1.0); Blood Urea Nitrogen 5 mg/dL (6-20); Calcium 8.1 mg/dL (8.6-10.3); Carbon Dioxide 27 mEq/L (23-29); Chloride 105 mEq/L (98-107); Globulin 3.3 g/dL (2.4-3.5); Glucose 256 mg/dL (70-105); Osmolality,Calculated 296 (280-300); Potassium 3.2 mEq/L (3.5-5.1); Sodium 140 mEq/L (136-145); Total Protein 6.6 g/dL (6.4-8.9); eGFR For Non-African Americans > 60 (> 60)
[2018-03-24] MEDS: *HR* Heparin 5,000 UNIT/ML VIAL SQ SCH ×3 (07:25→21:58)
[2018-03-24] MEDS ORDERED: 0.9 % Sodium Chloride 1,000 ML IVC ONE (08:53)
[2018-03-24] MEDS ORDERED: Fluticasone Propionate Nasal 50 MCG/SPRAY BOTTLE NS SCH (09:00)
[2018-03-24] MEDS: BuPROPion XL (24 HR) 150 MG TABLET PO SCH ×2 (09:35→10:01)
[2018-03-24] MEDS: Aspirin 81 MG TAB.CHEW PO SCH ×2 (09:35→10:01)
[2018-03-24] MEDS: Loratadine 10 MG TABLET PO SCH ×2 (09:35→10:01)
[2018-03-24] MEDS: MethylPREDNISolone 40 MG/ML VIAL IVP SCH (09:36)
[2018-03-24] MEDS: (Fluticasone/Vilanterol [Breo Ellipta 100-25 Mcg Inh]) IH SCH (09:36)
[2018-03-24] MEDS ORDERED: Tiotropium 18 MCG inhalation IH SCH (10:00)
[2018-03-24] MEDS ORDERED: Potassium Chloride Elixir 20 MEQ/15 ML UDC PO ONE (10:20)
--- NOTE | 2018-03-24 10:22 | Internal Med Progress Note ---
<Shalonda De Oliveira M - Last Filed: 03/24/18 16:23> Hospitalist Progress Note - Encounter Date of Encounter: 03/24/18 Time of Encounter: 10:21 - Subjective Interval History: Patient is a 52 yo Female with history of COPD who presented to the emergency department at [place] on 03/23/18 with complaints of shortness of breath, worsened over the last few weeks. She states that home she uses 3 L of oxygen normally but is increased to 5 L as she believes her long cord and mouth breathing does not give her adequate oxygen at only 3 L. Patient denies any recent cough, cold , or congestion. She states she has had abdominal pain for which she is been seen multiple times at [place] emergency department. After CT abdomen revealed free fluid in the pelvis and questionable small bowel obstruction the patient was recommended to be admitted but she left AMA after improvement in her symptoms with enema. Today the patient states that she continues to have abdominal pain and has not had a bowel movement in 9 days and she has had difficulty urinating. She states she has not had much to eat this past week. She was nauseated prior to breakfast this morning. She states her breathing continues to be poor. - Exam Vitals: Temp Pulse Resp BP Pulse Ox 97.8 F 69 18 86/66 90 03/24/18 06:43 03/24/18 06:43 03/24/18 07:43 03/24/18 06:43 03/24/18 07:43 Exam: Vitals reviewed. General: 52 yo white female appears older than stated age sitting upright in bed , leaning forward. In mild respiratory distress. Takes pauses after sentences to catch her breath, on 6L NC Neck: No JVD, trachea midline HEENT: PERRL, normocephalic, atraumatic Cardiac: Regular Rate and Rhythm, Normal S1 and S2, No murmurs appreciated Pulmonary: decreased breath sounds throughout, mild Wheezes throughout, Rales, or Rhonchi Abdomen: soft, mild tenderness to palpation diffusely, most severe in the lower quadrants, no bruits, no guarding, negative murphys sign, no mcburneys tenderness Neuro: Alert and responsive, No focal deficits noted Vascular: Normal capillary refill Skin: No rashes noted on visualized skin Musculoskeletal: No Chest Wall Tenderness Extremities: Clubbing US, No Cyanosis, No Edema, Normal Pulses Psych: Normal mood, pleasant, conversant - Assessment and Plan (1) COPD exacerbation Current Visit: Yes Status: Resolved Assessment and Plan: - Currently on 6 L, 2 nebs every 3, azithromycin 500, and Solu-Medrol 40 IV daily - Home oxygen requirements per the patient she has been upping her oxygen to 5 L from 3L due to her long oxygen cord and increased shortness of breath - Continue monitoring - May require a pulmonology consult if there is no significant improvement given her stage IV COPD status (2) Abdominal pain Current Visit: Yes Status: Acute Assessment and Plan: - Previously had CT abdomen switch revealed no free fluid in the pelvis without a dental cause and constipation, previously her abdominal pain was improved through enema - States she has had no bowel movements in the past [address] abdomen to evaluate for changes - CT abd showed pericholecystic fluid, mild transverse colon wall thickening - Will obtain RUQ US to further evaluate for cholecystitis (3) Hypokalemia Current Visit: Yes Status: Acute Assessment and Plan: - On presentation at [place] ED, potassium was 2.5 - This a.m. up to 3.2 after 40 mEq given - 40 mEq given today - Will recheck BMP in the morning (4) Tobacco abuse Current Visit: Yes Status: Chronic Assessment and Plan: - Encouraged the cessation of smoking (5) Depression Current Visit: Yes Status: Chronic Assessment and Plan: - Continues on home medications of Wellbutrin and Valium (6) DVT prophylaxis Current Visit: Yes Status: Acute - Time Spent with Patient Total time spent is greater than 50% in coordination of care (as documented) at patient's floor/unit and/or counseling patient: 25 - 35 minutes Internal Medicine: Result - Labs CBC & Chem 7: 03/24/18 04:50 03/24/18 04:50 Labs: Short CBC 03/24/18 Range/Units 04:50 WBC 7.3 (4.3-11.1) K/mcL Hgb 13.0 (11.5-15.4) g/dL Hct 38.9 (35.3-44.9) % Plt Count 281 (140-400) K/mcL Neutrophils # 5.8 (1.6-8.9) K/mcL BMP 03/24/18 04:50 Sodium 140 Potassium 3.2 L D Chloride 105 Carbon Dioxide 27 BUN 5 L Creatinine 0.69 Glucose 256 H Calcium 8.1 L Liver Function 03/24/18 Range/Units 04:50 Total Bilirubin 0.5 (0.3-1.0) mg/dL AST 15 (13-39) Units/L ALT 7 (7-52) Units/L Alkaline Phosphatase 60 (34-104) Units/L Albumin 3.3 L (3.5-5.7) g/dL Consult Discharge Plan - Plan Referrals: Cynthia Clark CNP [Primary Care Provider] - <Angelita Osei - Last Filed: 03/24/18 16:45> Hospitalist Progress Note - Encounter Date of Encounter: 03/24/18 - Exam Vitals: Temp Pulse Resp BP Pulse Ox 97.6 F 68 18 105/82 93 03/24/18 15:45 03/24/18 15:45 03/24/18 15:57 03/24/18 15:45 03/24/18 15:57 - Assessment and Plan (1) DVT prophylaxis Current Visit: Yes Status: Acute (2) Depression Current Visit: Yes Status: Chronic (3) Hypokalemia Current Visit: Yes Status: Acute (4) Acute and chronic respiratory failure with hypoxia Current Visit: Yes Status: Acute (5) Tobacco dependence Current Visit: Yes Status: Acute (6) COPD (chronic obstructive pulmonary disease) Current Visit: Yes Status: Acute (7) Dehydration Current Visit: Yes Status: Acute - Time Spent with Patient Total time spent is greater than 50% in coordination of care (as documented) at patient's floor/unit and/or counseling patient: Internal Medicine: Result - Labs CBC & Chem 7: 03/24/18 04:50 03/24/18 04:50 Labs: Short CBC 03/24/18 Range/Units 04:50 WBC 7.3 (4.3-11.1) K/mcL Hgb 13.0 (11.5-15.4) g/dL Hct 38.9 (35.3-44.9) % Plt Count 281 (140-400) K/mcL Neutrophils # 5.8 (1.6-8.9) K/mcL BMP 03/24/18 04:50 Sodium 140 Potassium 3.2 L D Chloride 105 Carbon Dioxide 27 BUN 5 L Creatinine 0.69 Glucose 256 H Calcium 8.1 L Liver Function 03/24/18 Range/Units 04:50 Total Bilirubin 0.5 (0.3-1.0) mg/dL AST 15 (13-39) Units/L ALT 7 (7-52) Units/L Alkaline Phosphatase 60 (34-104) Units/L Albumin 3.3 L (3.5-5.7) g/dL - Impressions Impressions Abdomen/Pelvis CT 03/24/18 12:39 IMPRESSION: 1. Although the gallbladder is not well distended, there is either pericholecystic fat stranding or fluid. Consider ultrasound to evaluate for acute cholecystitis. 2. Although not well distended, the transverse colon demonstrates mild to moderate wall thickening which could relate to focal colitis. Moderate stool burden. 3. UIP pattern of interstitial lung disease at the lung bases. D/ / John Parsons MD / John Parsons MD Interpreting Provider: John Parsons MD - Attending Attestation I examined this patient and my medical decision-making was reviewed with the Resident Physician Dr. Jacob. I agree with the documented findings, disposition and treatment plan as described except to the extent set forth below. <Shalonda De Oliveira - Last Filed: 03/24/18 16:23> (2) Abdominal pain Qualifiers: Abdominal location: unspecified location Qualified Code(s): R10.9 - Unspecified abdominal pain (5) Depression Qualifiers: Depression Type: unspecified Qualified Code(s): F32.9 - Major depressive disorder, single episode, unspecified <Angelita Osei - Last Filed: 03/24/18 16:45> (2) Depression Qualifiers: Depression Type: unspecified Qualified Code(s): F32.9 - Major depressive disorder, single episode, unspecified (6) COPD (chronic obstructive pulmonary disease) Qualifiers: COPD type: COPD with acute exacerbation Qualified Code(s): J44.1 - Chronic obstructive pulmonary disease with (acute) exacerbation
[2018-03-24] MEDS: Azithromycin 500 MG in D5% in Water 250 ML IVPB SCH (11:34)
[2018-03-24] MEDS ORDERED: Ondansetron 4 MG/2 ML VIAL IVP PRN (12:39)
[2018-03-25] MEDS: Ipratropium/Albuterol Neb 3 ML IH SCH ×6 (00:19→20:02)
[2018-03-25] MEDS: *HR* Heparin 5,000 UNIT/ML VIAL SQ SCH ×2 (06:02→16:46)
[2018-03-25 07:39] LABS: BUN/Creatinine Ratio 10 (6-26); Blood Urea Nitrogen 6 mg/dL (6-20); Calcium 7.9 mg/dL (8.6-10.3); Carbon Dioxide 27 mEq/L (23-29); Chloride 111 mEq/L (98-107); Glucose 96 mg/dL (70-105); Osmolality,Calculated 295 (280-300); Potassium 3.4 mEq/L (3.5-5.1); Sodium 144 mEq/L (136-145); eGFR For Non-African Americans > 60 (> 60)
[2018-03-25] MEDS: Loratadine 10 MG TABLET PO SCH (08:51)
[2018-03-25] MEDS: Aspirin 81 MG TAB.CHEW PO SCH (08:51)
[2018-03-25] MEDS: BuPROPion XL (24 HR) 150 MG TABLET PO SCH (08:51)
[2018-03-25] MEDS: MethylPREDNISolone 40 MG/ML VIAL IVP SCH ×2 (08:52→16:46)
[2018-03-25] MEDS: Azithromycin 500 MG in D5% in Water 250 ML IVPB SCH (08:52)
[2018-03-25] MEDS: (Fluticasone/Vilanterol [Breo Ellipta 100-25 Mcg Inh]) IH SCH (08:52)
--- NOTE | 2018-03-25 09:33 | Internal Med Progress Note ---
<Shalonda De Oliveira - Last Filed: 03/25/18 10:35> Hospitalist Progress Note - Encounter Date of Encounter: 03/25/18 Time of Encounter: 09:41 - Subjective Interval History: Patient is a 52 yo Female with history of COPD who presented to the emergency department at [place] on 03/23/18 with complaints of shortness of breath, worsened over the last few weeks. She states that home she uses 3 L of oxygen normally but is increased to 5 L as she believes her long cord and mouth breathing does not give her adequate oxygen at only 3 L. Patient denies any recent cough, cold , or congestion. She states she has had abdominal pain for which she is been seen multiple times at [place] emergency department. After CT abdomen revealed free fluid in the pelvis and questionable small bowel obstruction the patient was recommended to be admitted but she left AMA after improvement in her symptoms with enema. Repeat CT on 03/24/18 revealed pericholecytic fluid. Today the patient states she is doing worse, with many instances of her oxygen saturation dropping when moving around in bed. She states she did not sleep much last night. She has not had a bowel movement yet and her abdominal pain persists. - Exam Vitals: Vital Signs - 24 hr 03/24/18 11:00 03/24/18 11:16 03/24/18 15:45 Temperature 97.5 F L 97.6 F Pulse Rate 61 68 Respiratory Rate 16 18 Blood Pressure 108/78 117/82 105/82 O2 Sat by Pulse Oximetry 99 96 03/24/18 15:57 03/24/18 20:00 03/25/18 00:00 Temperature 97.8 F 97.8 F Pulse Rate 78 66 Respiratory Rate 18 21 16 Blood Pressure 105/74 111/83 O2 Sat by Pulse Oximetry 93 94 97 03/25/18 00:19 03/25/18 04:00 03/25/18 07:15 Temperature 97.8 F 97.6 F Pulse Rate 67 69 Respiratory Rate 19 17 16 Blood Pressure 92/67 107/76 O2 Sat by Pulse Oximetry 94 95 86 03/25/18 07:33 Temperature Pulse Rate Respiratory Rate 20 Blood Pressure O2 Sat by Pulse Oximetry 86 Exam: Vitals reviewed. General: 52 yo white female appears older than stated age sitting upright in bed , leaning forward. In mild respiratory distress. Takes pauses after sentences to catch her breath, on 6L oxymask Neck: No JVD, trachea midline HEENT: PERRL, normocephalic, atraumatic Cardiac: Regular Rate and Rhythm, Normal S1 and S2, No murmurs appreciated Pulmonary: decreased breath sounds throughout, Crackles throughout worse in bilateral bases. Abdomen: soft, mild tenderness to palpation diffusely, most severe in the lower quadrants, no bruits, no guarding, negative murphys sign, no mcburneys tenderness Neuro: Alert and responsive, No focal deficits noted Vascular: Normal capillary refill Skin: No rashes noted on visualized skin Extremities: Clubbing BUE, No Cyanosis, No Edema, Normal Pulses Psych: Normal mood, pleasant, conversant - Assessment and Plan (1) COPD exacerbation Current Visit: Yes Status: Acute Assessment and Plan: - Continued on 6L NC overnight but required titration up while sleeping - This morning required up to 10L when moving around in bed - Will order BiPAP for respiratory support - Will likely require pulmonology consult given her need for BiPAP and stage IV COPD - Continues on duonebs q 3 hours, azithromycin 500mg, and solumedrol 40mg IV daily (2) Abdominal pain Current Visit: Yes Status: Acute Assessment and Plan: - Persists, no bowel movements yet - CT abdomen revealed pericholecystic fluid, mild transverse colon wall thickening and mild stool burden - RUQ US pending - Added Senna Plus for constipation, will continue to monitor (3) Hypokalemia Current Visit: Yes Status: Acute Assessment and Plan: - Yesterday to 3.2, today 3.4 - 40mEq ordered - will recheck BMP in am (4) Tobacco abuse Current Visit: Yes Status: Chronic Assessment and Plan: - Encouraged cessation (5) Depression Current Visit: Yes Status: Chronic Assessment and Plan: - Continues on home medications, wellbutrin and valium (6) DVT prophylaxis Current Visit: Yes Status: Acute Assessment and Plan: - Heparin SQ every 8 hours - Time Spent with Patient Total time spent is greater than 50% in coordination of care (as documented) at patient's floor/unit and/or counseling patient: 25 - 35 minutes Plan of Care Discussed with: patient Internal Medicine: Result - Labs CBC & Chem 7: 03/24/18 04:50 03/25/18 06:56 Labs: BMP 03/25/18 06:56 Sodium 144 Potassium 3.4 L Chloride 111 H Carbon Dioxide 27 BUN 6 Creatinine 0.61 Glucose 96 Calcium 7.9 L - Impressions Impressions Abdomen/Pelvis CT 03/24/18 12:39 IMPRESSION: 1. Although the gallbladder is not well distended, there is either pericholecystic fat stranding or fluid. Consider ultrasound to evaluate for acute cholecystitis. 2. Although not well distended, the transverse colon demonstrates mild to moderate wall thickening which could relate to focal colitis. Moderate stool burden. 3. UIP pattern of interstitial lung disease at the lung bases. D/ / John Parsons MD / John Parsons MD Interpreting Provider: John Parsons MD Consult Discharge Plan - Plan Referrals: Cynthia Clark CNP [Primary Care Provider] - <Angelita Osei - Last Filed: 03/25/18 12:54> Hospitalist Progress Note - Encounter Date of Encounter: 03/25/18 - Exam Vitals: Temp Pulse Resp BP Pulse Ox 97.4 F L 69 32 124/88 100 03/25/18 11:41 03/25/18 11:41 03/25/18 11:50 03/25/18 11:50 03/25/18 11:50 - Assessment and Plan (1) DVT prophylaxis Current Visit: Yes Status: Acute (2) Depression Current Visit: Yes Status: Chronic (3) Hypokalemia Current Visit: Yes Status: Acute (4) Acute and chronic respiratory failure with hypoxia Current Visit: Yes Status: Acute (5) Tobacco dependence Current Visit: Yes Status: Acute (6) COPD (chronic obstructive pulmonary disease) Current Visit: Yes Status: Acute (7) Dehydration Current Visit: Yes Status: Acute - Time Spent with Patient Total time spent is greater than 50% in coordination of care (as documented) at patient's floor/unit and/or counseling patient: Internal Medicine: Result - Labs CBC & Chem 7: 03/24/18 04:50 03/25/18 06:56 Labs: [facility] 03/25/18 06:56 Sodium 144 Potassium 3.4 L Chloride 111 H Carbon Dioxide 27 BUN 6 Creatinine 0.61 Glucose 96 Calcium 7.9 L - Impressions Impressions Abdomen/Pelvis CT 03/24/18 12:39 IMPRESSION: 1. Although the gallbladder is not well distended, there is either pericholecystic fat stranding or fluid. Consider ultrasound to evaluate for acute cholecystitis. 2. Although not well distended, the transverse colon demonstrates mild to moderate wall thickening which could relate to focal colitis. Moderate stool burden. 3. UIP pattern of interstitial lung disease at the lung bases. D/ / John Parsons MD / John Parsons MD Interpreting Provider: John Parsons MD - Attending Attestation I examined this patient and my medical decision-making was reviewed with the Resident Physician Dr. Jacob. I agree with the documented findings, disposition and treatment plan as described except to the extent set forth below. Increase Solu Medrol to 40 mg Q8H IV Trial of BIPAP <Shalonda De Oliveira M - Last Filed: 03/25/18 10:35> (2) Abdominal pain Qualifiers: Abdominal location: unspecified location Qualified Code(s): R10.9 - Unspecified abdominal pain (5) Depression Qualifiers: Depression Type: unspecified Qualified Code(s): F32.9 - Major depressive disorder, single episode, unspecified <Angelita Osei - Last Filed: 03/25/18 12:54> (2) Depression Qualifiers: Depression Type: unspecified Qualified Code(s): F32.9 - Major depressive disorder, single episode, unspecified (6) COPD (chronic obstructive pulmonary disease) Qualifiers: COPD type: COPD with acute exacerbation Qualified Code(s): J44.1 - Chronic obstructive pulmonary disease with (acute) exacerbation
[2018-03-25] MEDS ORDERED: Potassium Chloride Elixir 20 MEQ/15 ML UDC PO ONE (09:39)
[2018-03-25] MEDS ORDERED: Sennosides/Docusate Sodium TABLET PO PRN (10:33)
[2018-03-25] MEDS: diazePAM 5 MG TABLET PO PRN ×2 (11:47→20:12)
[2018-03-26] MEDS: *HR* Heparin 5,000 UNIT/ML VIAL SQ SCH ×4 (00:07→23:54)
[2018-03-26] MEDS: MethylPREDNISolone 40 MG/ML VIAL IVP SCH ×4 (00:07→23:55)
[2018-03-26 04:39] LABS: Alanine Aminotransferase 8 Units/L (7-52); Albumin 3.4 g/dL (3.5-5.7); Albumin/Globulin Ratio 1.1 (1.1-2.2); Alkaline Phosphatase 67 Units/L (34-104); Aspartate Amino Transferase 11 Units/L (13-39); BUN/Creatinine Ratio 15 (6-26); Bilirubin,Total 0.3 mg/dL (0.3-1.0); Blood Urea Nitrogen 9 mg/dL (6-20); Calcium 8.9 mg/dL (8.6-10.3); Carbon Dioxide 28 mEq/L (23-29); Chloride 109 mEq/L (98-107); Glucose 118 mg/dL (70-105); Osmolality,Calculated 294 (280-300); Potassium 5.1 mEq/L (3.5-5.1); Sodium 142 mEq/L (136-145); Total Protein 6.4 g/dL (6.4-8.9); eGFR For Non-African Americans > 60 (> 60)
[2018-03-26] MEDS: diazePAM 5 MG TABLET PO PRN ×2 (05:34→18:02)
--- NOTE | 2018-03-26 09:38 | Internal Med Progress Note ---
<Shalonda De Oliveira - Last Filed: 03/26/18 15:05> Hospitalist Progress Note - Encounter Date of Encounter: 03/26/18 Time of Encounter: 09:38 - Subjective Interval History: Patient is a 52 yo Female with history of COPD who presented to the emergency department at [facility] on 03/23/18 with complaints of shortness of breath, worsened over the last few weeks. She states that home she uses 3 L of oxygen normally but is increased to 5 L as she believes her long cord and mouth breathing does not give her adequate oxygen at only 3 L. Patient denies any recent cough, cold , or congestion. She states she has had abdominal pain for which she is been seen multiple times at [facility] emergency department. After CT abdomen revealed free fluid in the pelvis and questionable small bowel obstruction the patient was recommended to be admitted but she left AMA after improvement in her symptoms with enema. Repeat CT on 03/24/18 revealed pericholecytic fluid. Today the patient is doing better on BiPAP though she feels more short of breath when ambulating to the bathroom and eating. She has not had a bowel movement yet - Exam Vitals: Temp Pulse Resp BP Pulse Ox 97.9 F 45 18 120/85 98 03/26/18 07:19 03/26/18 07:19 03/26/18 07:19 03/26/18 07:19 03/26/18 07:19 Exam: Vitals reviewed. General: 52 yo white female appears older than stated age sitting upright in bed , leaning forward. In mild respiratory distress. Takes pauses after sentences to catch her breath, on 6L oxymask Neck: No JVD, trachea midline HEENT: PERRL, normocephalic, atraumatic Cardiac: Regular Rate and Rhythm, Normal S1 and S2, No murmurs appreciated Pulmonary: decreased breath sounds throughout, Crackles throughout worse in bilateral bases. Abdomen: soft, mild tenderness to palpation diffusely, most severe in the lower quadrants, no bruits, no guarding, negative murphys sign, no mcburneys tenderness Neuro: Alert and responsive, No focal deficits noted Vascular: Normal capillary refill Skin: No rashes noted on visualized skin Extremities: Clubbing BUE, No Cyanosis, No Edema, Normal Pulses Psych: Normal mood, pleasant, conversant - Assessment and Plan (1) COPD exacerbation Current Visit: Yes Status: Acute Assessment and Plan: - Continues on BiPAP/NC at 10L - Given her continued need for BiPAP will obtain evaluation for overnight BiPAP tonight - Pulmonology consulted - Now on home medications of spiriva, singulair, and albuterol as well as azithromycin and solumedrol 40mg IV q 8 - LR at 100ml/hour ordered for insensible fluid losses and poor oral intake - Will likely need increased oxygen at home - Pending oncology social work consult as patient has significant limitations at home including ability to obtain oxygen tanks, grocery shop, and cook her meals (2) Abdominal pain Current Visit: Yes Status: Acute Assessment and Plan: - CT abdomen revealed pericholecystic fluid, RUQ US revealed cholelithiasis without evidence for acute cholecystitis - Patient continues to complain of abdominal pain and inability to have a bowel movement - Added Senna + yesterday but she also does not have a large appetite, changed from one per day to 2 po BID prn - May require enema for relief (3) Hypokalemia Current Visit: Yes Status: Acute Assessment and Plan: - Yesterday down to 3.4, today at 5.1, will given IVF - Continuing to monitor with daily BMP (4) Tobacco abuse Current Visit: Yes Status: Chronic Assessment and Plan: - Continues to smoke (5) Depression Current Visit: Yes Status: Chronic Assessment and Plan: - Continues on home wellbutrin and valium (6) DVT prophylaxis Current Visit: Yes Status: Acute Assessment and Plan: - Heparin SQ every 8 hours - Noted bruising at injection sites - Time Spent with Patient Total time spent is greater than 50% in coordination of care (as documented) at patient's floor/unit and/or counseling patient: Internal Medicine: Result - Labs CBC & Chem 7: 03/24/18 04:50 03/26/18 04:00 Labs: BMP 03/26/18 04:00 Sodium 142 Potassium 5.1 D Chloride 109 H Carbon Dioxide 28 BUN 9 Creatinine 0.60 Glucose 118 H Calcium 8.9 Liver Function 03/26/18 Range/Units 04:00 Total Bilirubin 0.3 (0.3-1.0) mg/dL AST 11 L (13-39) Units/L ALT 8 (7-52) Units/L Alkaline Phosphatase 67 (34-104) Units/L Albumin 3.4 L (3.5-5.7) g/dL Consult Discharge Plan - Plan Referrals: Cynthia Clark CNP [Primary Care Provider] - <Angelita Osei - Last Filed: 03/26/18 15:33> Hospitalist Progress Note - Encounter Date of Encounter: 03/26/18 - Exam Vitals: Temp Pulse Resp BP Pulse Ox 97.9 F 65 16 148/98 98 03/26/18 12:00 03/26/18 12:00 03/26/18 12:00 03/26/18 12:00 03/26/18 12:00 - Assessment and Plan (1) DVT prophylaxis Current Visit: Yes Status: Acute (2) Depression Current Visit: Yes Status: Chronic (3) Hypokalemia Current Visit: Yes Status: Acute (4) Acute and chronic respiratory failure with hypoxia Current Visit: Yes Status: Acute (5) Tobacco dependence Current Visit: Yes Status: Acute (6) COPD (chronic obstructive pulmonary disease) Current Visit: Yes Status: Acute (7) Dehydration Current Visit: Yes Status: Acute - Time Spent with Patient Total time spent is greater than 50% in coordination of care (as documented) at patient's floor/unit and/or counseling patient: Internal Medicine: Result - Labs CBC & Chem 7: 03/24/18 04:50 03/26/18 04:00 Labs: BMP 03/26/18 04:00 Sodium 142 Potassium 5.1 D Chloride 109 H Carbon Dioxide 28 BUN 9 Creatinine 0.60 Glucose 118 H Calcium 8.9 Liver Function 03/26/18 Range/Units 04:00 Total Bilirubin 0.3 (0.3-1.0) mg/dL AST 11 L (13-39) Units/L ALT 8 (7-52) Units/L Alkaline Phosphatase 67 (34-104) Units/L Albumin 3.4 L (3.5-5.7) g/dL - Impressions Impressions Gallbladder Ultrasound 03/26/18 09:00 IMPRESSION: Cholelithiasis. No evidence for acute cholecystitis. D/ / Ric Lott MD / Ric Lott MD Interpreting Provider: Ric Lott MD - Attending Attestation I examined this patient and my medical decision-making was reviewed with the Resident Physician Dr. De Oliveira. I agree with the documented findings, disposition and treatment plan as described except to the extent set forth below. <Shalonda De Oliveira - Last Filed: 03/26/18 15:05> (2) Abdominal pain Qualifiers: Abdominal location: unspecified location Qualified Code(s): R10.9 - Unspecified abdominal pain (5) Depression Qualifiers: Depression Type: unspecified Qualified Code(s): F32.9 - Major depressive disorder, single episode, unspecified <Angelita Osei - Last Filed: 03/26/18 15:33> (2) Depression Qualifiers: Depression Type: unspecified Qualified Code(s): F32.9 - Major depressive disorder, single episode, unspecified (6) COPD (chronic obstructive pulmonary disease) Qualifiers: COPD type: COPD with acute exacerbation Qualified Code(s): J44.1 - Chronic obstructive pulmonary disease with (acute) exacerbation
[2018-03-26] MEDS ORDERED: Ringers Solution, Lactated 1,000 ML IVC ONE (10:42)
[2018-03-26] MEDS: Fluticasone Propionate Nasal 50 MCG/SPRAY BOTTLE NS SCH (10:51)
[2018-03-26] MEDS: Azithromycin 500 MG in D5% in Water 250 ML IVPB SCH (10:52)
[2018-03-26] MEDS: BuPROPion XL (24 HR) 150 MG TABLET PO SCH (10:52)
[2018-03-26] MEDS: Loratadine 10 MG TABLET PO SCH (10:52)
[2018-03-26] MEDS: Aspirin 81 MG TAB.CHEW PO SCH (10:52)
[2018-03-26] MEDS: (Fluticasone/Vilanterol [Breo Ellipta 100-25 Mcg Inh]) IH SCH (10:58)
[2018-03-26] MEDS: Tiotropium 18 MCG inhalation IH SCH (12:00)
[2018-03-26] MEDS: Ringers Solution, Lactated 1,000 ML IVC SCH ×2 (12:22→22:22)
--- NOTE | 2018-03-26 13:54 | Pulmonology Consult Note ---
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 Patient continues to smoke, but is working on quitting, down to 3-4 cigarettes per day from 1ppd Agree with BiPAP evaluation tonight Recommend transitioning home meds to nebulized medications, with Spiriva respimat for homegoing Will likely need to reassess supplemental oxygen needs for home going Recommend ECHO to determine if diastolic dysfunction contributing CT chest for tomorrow to compare to previous for determination of need/benefit of steroids Recommend Azithromycin MWF for discharge Recommend oral prednisone taper for discharge Recommend pulmonary follow-up in 6 weeks (2) Tobacco abuse Current Visit: Yes Status: Chronic Discussed need for smoking cessation to maintain current lung function and prevent worsening Patient currently on Wellbutrin and down to 3-4 cigarettes on average per day History of Present Illness Consult date: 03/26/18 Requesting physician: Shalonda De Oliveira Reason for consult: dyspnea Chief complaint: Shortness of breath History of present illness: Mrs. Varner is a 52-year-old female with history of stage IV COPD, actively smoking, with last admission for COPD exacerbation 4 months ago. Patient presented to [facility] with complaint of worsening shortness of breath. She states that she was waking up in the middle the night short of breath and gasping for air, and that her oxygen saturation has been in the 50s at times. On presentation at [facility] she was 80% on 4 L nasal cannula and was placed on a nonrebreather mask with saturations in the high 90s. She is on 3-4 L supplemental oxygen chronically at home, although she states that she never feels like she is getting enough oxygen. When her oxygen saturation is in the 50s, she experiences lightheadedness and difficulty breathing. She takes Breo ellipta, Spiriva, albuterol Nebules, and Ventolin regularly, but states that she feels like they no longer work for her. She lives alone with her 4 cats and 2 dogs. She states that she easily becomes short of breath when walking short distances and has a hard time caring for herself and her pets. She does not have transportation or anyone to check on her or take her to her appointments. Her oxygen tanks when running continuously only lasts her about 2 hours. She states that she has also tried portable oxygen but they too do not last on continuous-flow. She was recently started on Wellbutrin by her PCP. She states that this has helped her significantly and reducing the amount of cigarettes she is smoking on a daily basis. She was previously smoking 1 PPD and is now smoking 3-4 per day on average. Past Med Surg Social Fam HX - Past Medical History Medical history: asthma, COPD Additional medical history: stage 4 lung ca Psychiatric history: no psych history - Past Surgical History Surgical History: non-contributory Additional surgical history: ectopic pregnancies - Social History Smoking Status: Current every day smoker Smokeless Tobacco Status: No Alcohol use: none Drug use: none - Family History Mother Living Status: Still Living Hx Family Cardiac Disorders: Yes Hx Family Endocrine Disorder: Yes (dm) Sister Hx Family Cardiac Disorders: Yes Medications and Allergies Albuterol Sulfate [Ventolin Hfa] 2 puff IH Q4H PRN 09/02/15 [History] Fluticasone Propionate Nasal [Flonase] 1 spr NS DAILY 05/27/16 [History] Montelukast [Singulair] 10 mg PO QPM 05/27/16 [History] Tiotropium [Spiriva] 18 mcg IH DAILY 05/27/16 [History] Aspirin 81 mg PO DAILY 07/11/17 [History] Ibuprofen 200 mg PO Q6H PRN 07/11/17 [History] Loratadine [Claritin] 10 mg PO DAILY 07/11/17 [History] Nitroglycerin [Nitrostat] 0.3 mg SL Q5M PRN 07/11/17 [History] diazePAM [Valium] 5 mg PO TID 03/11/18 [History] BuPROPion XL (24 HR) [Wellbutrin XL] 150 mg PO DAILY 03/23/18 [History] Fluticasone/Vilanterol [Breo Ellipta 100-25 Mcg INH] 1 puff IH DAILY 03/23/18 [ History] Omeprazole [PriLOSEC] 20 mg PO DAILY@0630 03/23/18 [History] 3 Allergy/AdvReac Type Severity Reaction Status Date / Time codeine Allergy Rash Verified 07/11/17 17:19 fluoxetine [From Prozac] Allergy Rash Verified 07/11/17 17:19 gabapentin Allergy Swelling Verified 03/11/18 17:14 of Lip/Tongue/Throat divalproex sodium AdvReac See Verified 03/11/18 16:35 [From Depakote] Comments All Systems: The remainder of the systems were reviewed and are negative - Constitutional Constitutional: fatigue - Cardiovascular Cardiovascular: dyspnea, edema, lightheadedness, paroxysmal nocturnal dyspnea, no chest pain - Respiratory Respiratory: cough, dyspnea, no excessive phlegm production - Gastrointestinal Gastrointestinal: abdominal pain, other (constipation, no bowel movements for the past 9 days) - Genitourinary Genitourinary: difficulty urinating (prior to admission was hardly going 1x per day) - Psychiatric Psychiatric: depression Physical Examination Vital Signs: Vital Signs, Last 4 Hours Temp Pulse Resp BP Pulse Ox 03/26/18 12:00 97.9 F 65 16 148/98 98 General appearance: no acute distress, alert Eyes: nonicteric ENT: oropharynx moist Effort: mildly labored Auscultation: bilateral: clear, diminished breath sounds Cardiovascular: regular rate and rhythm Extremities: no edema, other (prominent clubbing on the hands and feet) normal mental status, pupils equal and round mood appropriate Results - Laboratory Findings CBC and BMP: 03/24/18 04:50 03/26/18 04:00 Abnormal lab findings: Abnormal lab results RDW 14.8 % (11.5-14.5) H 03/24/18 04:50 Chloride 109 mEq/L (98-107) H 03/26/18 04:00 Glucose 118 mg/dL (70-105) H 03/26/18 04:00 AST 11 Units/L (13-39) L 03/26/18 04:00 Albumin 3.4 g/dL (3.5-5.7) L 03/26/18 04:00 - Clinical Findings Intake & Output: Intake & Output 03/25/18 03/26/18 03/26/18 23:59 07:59 15:59 Intake Total 180 / 180 170 / 170 240 / 240 Output Total 500 / 500 900 / 900 Balance 180 / 180 -330 / -330 -660 / -660 Weight 49.8 kg Consult Discharge Plan - Plan Referrals: Cynthia Clark, JUANITO [Primary Care Provider] - <Donta Ham S - Last Filed: 03/26/18 22:07> Date of Encounter: 03/26/18 All Systems: The remainder of the systems were reviewed and are negative Physical Examination Vital Signs: Vital Signs, Last 4 Hours Temp Pulse Resp BP Pulse Ox 03/26/18 21:25 97.5 F L 52 20 129/86 99 Results - Laboratory Findings CBC and BMP: 03/24/18 04:50 03/26/18 04:00 Abnormal lab findings: Abnormal lab results RDW 14.8 % (11.5-14.5) H 03/24/18 04:50 Chloride 109 mEq/L (98-107) H 03/26/18 04:00 Glucose 118 mg/dL (70-105) H 03/26/18 04:00 AST 11 Units/L (13-39) L 03/26/18 04:00 Albumin 3.4 g/dL (3.5-5.7) L 03/26/18 04:00 - Clinical Findings Intake & Output: Intake & Output 03/26/18 03/26/18 03/26/18 07:59 15:59 23:59 Intake Total 170 / 170 480 / 480 240 / 240 Output Total 500 / 500 1400 / 1400 700 / 700 Balance -330 / -330 -920 / -920 -460 / -460 Weight 49.8 kg - Attending Attestation I saw and evaluated this patient and my medical decision-making was reviewed with the Resident Physician. I agree with the documented findings, disposition and treatment plan as described except to the extent set forth below. We independently had [id number] contact with the patient Patient seen and examined at bedside Labs, radiology, chart personally reviewed. Presenting with worsening shortness of breath severe exercise-induced desaturation requiring increased oxygen requirements . Reviewing the chart history physical, imaging patient has severe combined emphysema and pulmonary fibrosis. The previous CT scan shows progressive worsening of UIP pattern. PFT shows severe obstructive and restrictive ventilatory impairment. Will get an echo if there is onset of pulmonary hypertension shows poor prognosis for this patient ,for now continue antibiotics and steroids. will repeat CT chest without contrast for signs of exacerbation of pulmonary fibrosis Patient will need high flow portable oxygen concentrator to work with social scientist she will need at least 6-8 L on exertion. Palliative care should be involved if she gets intubated she has a low probability successfully liberated from the ventilator. Patient has poor insight over the condition will need close outpatient follow-up around 6 weeks in outpatient pulmonology. We will continue to follow.
[2018-03-26] MEDS ORDERED: Sennosides/Docusate Sodium TABLET PO PRN (15:05)
[2018-03-27 04:03] LABS: ABG Base Excess 5 mEq/L (-2 to 3); ABG HCO3 30 mEq/L (21-27); ABG Oxygen Saturation 96 % (95-98); ABG PCO2 45 mmHg (35-45); ABG PH 7.43 pH Units (7.32-7.45); ABG PO2 80 mmHg (85-104); ABG TCO2 31 mEq/L (20-26)
[2018-03-27] MEDS: diazePAM 5 MG TABLET PO PRN ×3 (04:09→23:16)
[2018-03-27 04:43] LABS: Alanine Aminotransferase 6 Units/L (7-52); Albumin 3.2 g/dL (3.5-5.7); Albumin/Globulin Ratio 1.2 (1.1-2.2); Alkaline Phosphatase 58 Units/L (34-104); Aspartate Amino Transferase 10 Units/L (13-39); BUN/Creatinine Ratio 24 (6-26); Bilirubin,Total 0.3 mg/dL (0.3-1.0); Blood Urea Nitrogen 12 mg/dL (6-20); Calcium 8.8 mg/dL (8.6-10.3); Carbon Dioxide 26 mEq/L (23-29); Chloride 106 mEq/L (98-107); Globulin 2.7 g/dL (2.4-3.5); Glucose 125 mg/dL (70-105); Osmolality,Calculated 285 (280-300); Potassium 4.4 mEq/L (3.5-5.1); Sodium 137 mEq/L (136-145); Total Protein 5.9 g/dL (6.4-8.9); eGFR For Non-African Americans > 60 (> 60)
[2018-03-27] MEDS: *HR* Heparin 5,000 UNIT/ML VIAL SQ SCH ×3 (06:27→20:54)
[2018-03-27] MEDS: BuPROPion XL (24 HR) 150 MG TABLET PO SCH (10:02)
[2018-03-27] MEDS: Loratadine 10 MG TABLET PO SCH (10:02)
[2018-03-27] MEDS: MethylPREDNISolone 40 MG/ML VIAL IVP SCH ×2 (10:02→20:54)
[2018-03-27] MEDS: Aspirin 81 MG TAB.CHEW PO SCH (10:02)
[2018-03-27] MEDS: Azithromycin 500 MG in D5% in Water 250 ML IVPB SCH (10:02)
[2018-03-27] MEDS: Ringers Solution, Lactated 1,000 ML IVC SCH (10:03)
[2018-03-27] MEDS: Fluticasone Propionate Nasal 50 MCG/SPRAY BOTTLE NS SCH (10:14)
[2018-03-27] MEDS: (Fluticasone/Vilanterol [Breo Ellipta 100-25 Mcg Inh]) IH SCH (10:15)
[2018-03-27] MEDS: Tiotropium 18 MCG inhalation IH SCH (10:47)
[2018-03-27] MEDS: cefTRIAXone 1,000 MG in Water for inj. (sterile) 20 ML 10 ML IVP SCH (12:19)
--- NOTE | 2018-03-27 13:28 | Internal Med Progress Note ---
<Shalonda De Oliveira - Last Filed: 03/27/18 15:02> Hospitalist Progress Note - Encounter Date of Encounter: 03/27/18 Time of Encounter: 13:27 - Subjective Interval History: Patient is a 52 yo Female with history of COPD who presented to the emergency department at [facility] on 03/23/18 with complaints of shortness of breath, worsened over the last few weeks. She states that home she uses 3 L of oxygen normally but is increased to 5 L as she believes her long cord and mouth breathing does not give her adequate oxygen at only 3 L. Patient denies any recent cough, cold , or congestion. She states she has had abdominal pain for which she is been seen multiple times at [facility] emergency department. After CT abdomen revealed free fluid in the pelvis and questionable small bowel obstruction the patient was recommended to be admitted but she left AMA after improvement in her symptoms with enema. Repeat CT on 03/24/18 revealed pericholecytic fluid. Today the patient continues to feel severely short of breath while ambulating. She is concerned about going to a SNF as she is not willing to live without her pets at home. She states with wellbutrin she has been able to decrease her smoking to 3-4 cigarettes per day, sometimes going without all day over the past three weeks. - Exam Vitals: Temp Pulse Resp BP Pulse Ox 97.8 F 50 18 113/80 89 03/27/18 11:32 03/27/18 11:32 03/27/18 11:32 03/27/18 11:32 03/27/18 11:32 Exam: Vitals reviewed. General: 52 yo white female appears older than stated age sitting upright in bed , leaning forward. In mild respiratory distress. Takes pauses after sentences to catch her breath, on 6L oxymask Neck: No JVD, trachea midline HEENT: PERRL, normocephalic, atraumatic Cardiac: Regular Rate and Rhythm, Normal S1 and S2, No murmurs appreciated Pulmonary: decreased breath sounds throughout, Crackles throughout worse in bilateral bases. Abdomen: soft, mild tenderness to palpation diffusely, most severe in the lower quadrants, no bruits, no guarding, negative murphys sign, no mcburneys tenderness Neuro: Alert and responsive, No focal deficits noted Vascular: Normal capillary refill Skin: No rashes noted on visualized skin Extremities: Clubbing BUE, No Cyanosis, No Edema, Normal Pulses Psych: Normal mood, pleasant, conversant - Assessment and Plan (1) COPD exacerbation Current Visit: Yes Status: Acute Assessment and Plan: - Underwent BiPAP evaluation overnight, pending results - CT chest revealed worsened progression of pulmonary fibrosis - Echo revealed EF of 60% with moderate to severe pulmonary hypertension - Pulmonology recommends azithromycin M/W/F and prednisone taper when discharged - Will require pulmonology follow up in 6 weeks - Per pulmonology recommendations, have consulted palliative care for their recommendations - Patient adamantly declines the option of discharge to SNF as she has animals to care for and is unwilling to give them up - Now on home medications of spiriva, singulair, and albuterol. Pulmonology changed antibiotics from Azithromycin to doxycycline and rocephin. Solumedrol decreased from 40mg q 8 to q 12 hours in preparation for taper - Will likely need increased oxygen at home, will discuss with social work - Pending social insurance adviser consult as patient has significant limitations at home including ability to obtain oxygen tanks, grocery shop, and cook her meals (2) Abdominal pain Current Visit: Yes Status: Acute Assessment and Plan: - Improved today, on Senna Plus 2 BID as needed (3) Hypokalemia Current Visit: Yes Status: Acute Assessment and Plan: - Stable today at 4.4 - will monitor with BMP (4) Tobacco abuse Current Visit: Yes Status: Chronic Assessment and Plan: - On wellbutrin patient has decreased smoking - Extensive discussion today on the need to discontinue smoking completely given her poor prognosis (5) Depression Current Visit: Yes Status: Chronic Assessment and Plan: - Continues on wellbutrin and valium (6) DVT prophylaxis Current Visit: Yes Status: Acute Assessment and Plan: - On heparin SQ every 8 hours - Time Spent with Patient Total time spent is greater than 50% in coordination of care (as documented) at patient's floor/unit and/or counseling patient: Internal Medicine: Result - Labs CBC & Chem 7: 03/24/18 04:50 03/27/18 04:05 Labs: BMP 03/27/18 04:05 Sodium 137 Potassium 4.4 Chloride 106 Carbon Dioxide 26 BUN 12 Creatinine 0.51 L Glucose 125 H Calcium 8.8 Liver Function 03/27/18 Range/Units 04:05 Total Bilirubin 0.3 (0.3-1.0) mg/dL AST 10 L (13-39) Units/L ALT 6 L (7-52) Units/L Alkaline Phosphatase 58 (34-104) Units/L Albumin 3.2 L (3.5-5.7) g/dL - ABG Interpretation ABG results: ABG ABG pH 7.43 pH Units (7.32-7.45) 03/27/18 03:59 ABG pCO2 45 mmHg (35-45) 03/27/18 03:59 ABG pO2 80 mmHg (85-104) L 03/27/18 03:59 ABG O2 Saturation 96 % (95-98) 03/27/18 03:59 - Impressions Impressions Chest CT 03/26/18 15:27 IMPRESSION: 1. Interval progression of changes of diffuse pulmonary fibrosis as well as emphysema. 2. Right pleural effusion with right basilar consolidation. Superimposed pneumonia is a consideration. 3. Pulmonary artery enlargement suggesting pulmonary artery hypertension. 4. Mild cardiomegaly. 5. Sequela from old granulomatous disease. D/ / Piyush Goins / Piyush Goins Interpreting Provider: Piyush Goins Echocardiogram 03/27/18 15:25 Impressions: LVEF 60%. Mild left ventricular diastolic dysfunction. RV size is borderline dilated by dimensions with low normal function by TD velocity. Tricuspid valve leaflets do not appear to coapt well. Moderate-severe tricuspid regurgitation. Mild-moderate pulmonic regurgitation. Moderate-severe pulmonary hypertension. Left Ventricular Wall Motion: Rest Echo Findings All wall segments showed normal motion. Findings: Study Quality * Technically adequate exam. ECG Findings * Normal sinus rhythm. Left Ventricle * LVEF 60%. * Mild left ventricular diastolic dysfunction. * Normal LV chamber size and wall thickness. Right Ventricle * RV size is borderline dilated by dimensions with low normal function by TD velocity. Left Atrium * Mildly dilated left atrium. Right Atrium * Moderately dilated right atrium. Mitral Valve * Normal mitral valve structure. * No mitral stenosis. * Trace mitral regurgitation. Aortic Valve * No aortic regurgitation. * Trileaflet aortic valve. * No aortic stenosis. Tricuspid Valve * Tricuspid valve leaflets do not appear to coapt well. * Moderate-severe tricuspid regurgitation. * Estimated RA pressure is 8 mmHg. * Estimated RVSP is 62 mmHg. * Moderate-severe pulmonary hypertension. Pulmonic Valve * Normal pulmonic valve structure. * No pulmonic stenosis. * Mild-moderate pulmonic regurgitation. Pulmonary Artery * Normal visualized portions of the main pulmonary artery. Aorta * Normally sized aortic root. Pericardium * There is no pericardial effusion present. Interatrial Septum * No evidence of PFO by color Doppler. IVC * The IVC is not dilated. * < 50% respiratory change. Consult Discharge Plan - Plan Referrals: Cynthia Clark CNP [Primary Care Provider] - <Abdi Starr - Last Filed: 03/27/18 16:02> Hospitalist Progress Note - Encounter Date of Encounter: 03/27/18 - Exam Vitals: Temp Pulse Resp BP Pulse Ox 97.8 F 50 18 113/80 89 03/27/18 11:32 03/27/18 11:32 03/27/18 11:32 03/27/18 11:32 03/27/18 11:32 - Assessment and Plan (1) DVT prophylaxis Current Visit: Yes Status: Acute (2) Depression Current Visit: Yes Status: Chronic (3) Hypokalemia Current Visit: Yes Status: Acute (4) Acute and chronic respiratory failure with hypoxia Current Visit: Yes Status: Acute (5) Tobacco dependence Current Visit: Yes Status: Acute (6) COPD (chronic obstructive pulmonary disease) Current Visit: Yes Status: Acute (7) Dehydration Current Visit: Yes Status: Acute - Time Spent with Patient Total time spent is greater than 50% in coordination of care (as documented) at patient's floor/unit and/or counseling patient: Internal Medicine: Result - Labs CBC & Chem 7: 03/24/18 04:50 03/27/18 04:05 Labs: BMP 03/27/18 04:05 Sodium 137 Potassium 4.4 Chloride 106 Carbon Dioxide 26 BUN 12 Creatinine 0.51 L Glucose 125 H Calcium 8.8 Liver Function 03/27/18 Range/Units 04:05 Total Bilirubin 0.3 (0.3-1.0) mg/dL AST 10 L (13-39) Units/L ALT 6 L (7-52) Units/L Alkaline Phosphatase 58 (34-104) Units/L Albumin 3.2 L (3.5-5.7) g/dL - ABG Interpretation ABG results: ABG ABG pH 7.43 pH Units (7.32-7.45) 03/27/18 03:59 ABG pCO2 45 mmHg (35-45) 03/27/18 03:59 ABG pO2 80 mmHg (85-104) L 03/27/18 03:59 ABG O2 Saturation 96 % (95-98) 03/27/18 03:59 - Impressions Impressions Chest CT 03/26/18 15:27 IMPRESSION: 1. Interval progression of changes of diffuse pulmonary fibrosis as well as emphysema. 2. Right pleural effusion with right basilar consolidation. Superimposed pneumonia is a consideration. 3. Pulmonary artery enlargement suggesting pulmonary artery hypertension. 4. Mild cardiomegaly. 5. Sequela from old granulomatous disease. D/ / Piyush Goins / Piyush Goins Interpreting Provider: Piyush Goins Echocardiogram 03/27/18 15:25 Impressions: LVEF 60%. Mild left ventricular diastolic dysfunction. RV size is borderline dilated by dimensions with low normal function by TD velocity. Tricuspid valve leaflets do not appear to coapt well. Moderate-severe tricuspid regurgitation. Mild-moderate pulmonic regurgitation. Moderate-severe pulmonary hypertension. Left Ventricular Wall Motion: Rest Echo Findings All wall segments showed normal motion. Findings: Study Quality * Technically adequate exam. ECG Findings * Normal sinus rhythm. Left Ventricle * LVEF 60%. * Mild left ventricular diastolic dysfunction. * Normal LV chamber size and wall thickness. Right Ventricle * RV size is borderline dilated by dimensions with low normal function by TD velocity. Left Atrium * Mildly dilated left atrium. Right Atrium * Moderately dilated right atrium. Mitral Valve * Normal mitral valve structure. * No mitral stenosis. * Trace mitral regurgitation. Aortic Valve * No aortic regurgitation. * Trileaflet aortic valve. * No aortic stenosis. Tricuspid Valve * Tricuspid valve leaflets do not appear to coapt well. * Moderate-severe tricuspid regurgitation. * Estimated RA pressure is 8 mmHg. * Estimated RVSP is 62 mmHg. * Moderate-severe pulmonary hypertension. Pulmonic Valve * Normal pulmonic valve structure. * No pulmonic stenosis. * Mild-moderate pulmonic regurgitation. Pulmonary Artery * Normal visualized portions of the main pulmonary artery. Aorta * Normally sized aortic root. Pericardium * There is no pericardial effusion present. Interatrial Septum * No evidence of PFO by color Doppler. IVC * The IVC is not dilated. * < 50% respiratory change. - Attending Attestation I examined this patient and my medical decision-making was reviewed with the Resident Physician Dr. De Oliveira . I agree with the documented findings, disposition and treatment plan as described except to the extent set forth below. Ms. Varner is a 52 y/o F with advanced COPD, Pulm fibrosis and interstitial lung disease pt admitted here for acute on chronic hypoxic resp failure. She is still on 5 lit O2. States feels little better today, however still has severe FISCHER and SPO2 dropping down even with simple exertion. Gen : A, A, O x 3 Chest: Diminished BS b/l, moderate to severe wheezing, no crackles Heart : S1S2+ RRR a/p 1. Acute on chronic hypoxic resp failure 2. Acute COPD exacerbation 3. Acute bronchitis 4. Acute pneumonia - mostly bacterial cont broad spec abx Rocephin + Doxy cont Duoneb and O2 start tapering steroids Pt wanted to go home only, with her cats and does, mold in her trailer home with her advanced COPD she is high risk pt and high chances of worsen her respiratory status. Palliative care team consulted as per Pulm recommendations <Shalonda De Oliveira - Last Filed: 03/27/18 15:02> (2) Abdominal pain Qualifiers: Abdominal location: unspecified location Qualified Code(s): R10.9 - Unspecified abdominal pain (5) Depression Qualifiers: Depression Type: unspecified Qualified Code(s): F32.9 - Major depressive disorder, single episode, unspecified <Abdi Starr - Last Filed: 03/27/18 16:02> (2) Depression Qualifiers: Depression Type: unspecified Qualified Code(s): F32.9 - Major depressive disorder, single episode, unspecified (6) COPD (chronic obstructive pulmonary disease) Qualifiers: COPD type: COPD with acute exacerbation Qualified Code(s): J44.1 - Chronic obstructive pulmonary disease with (acute) exacerbation
[2018-03-27] MEDS: Doxycycline 100 MG in 0.9 % Sodium Chloride Mini Bag 100 ML IVPB SCH (13:59)
--- NOTE | 2018-03-27 16:22 | Palliative - Consult Note ---
Date of Encounter: 03/27/18 Time of Encounter: 15:30 - Assessment and Plan (1) Goals of care, counseling/discussion Current Visit: Yes Status: Acute Assessment and plan: Extensive discussion with patient about present illness and overall medical condition, disease trajectory, prognosis and treatment options. Patient has a good understanding of her lung disease, and is aware that her prognosis at this point is months. Her PPS is about 40% as she is capable of self-care, but very limited by the disease. 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 She is refusing SNF placement as there is no one that will take care of her pets. Patient's mother and father are alive and she has several siblings, but does not have a good support from anyone except her sister Phoebe Caldera. She is . Patient's goal is to obtain living arrangements that will allow her to have more access to services and be able to care for herself at home with help. Expressed to patient that her health might not allow her at this time to return home, SW to discuss more about possible discharge options. Discussed advance care planning, including DNR vs CPR, and intubation. Explained that given her underlying lung condition, CPR and intubation will not be recommended, and will likely result in prolonging the dying process. Patient verbalizes understanding, and is leaning toward DNR. However, she would like the conversation to be in presence of her sister Phoebe, whom she wants to designate as her POA. Appointment made for meeting tomorrow morning at 9am. patient remains FULL CODE at this time. (2) Depression Current Visit: Yes Status: Chronic Assessment and plan: Patient get axious when she does not get her valium on time. She states that at home she has Valium 5mg TID, now it is ordered as prn, which makes it hard for the patient to obtain her dose. recommend scheduled Valium 5 mg TID continue Bupropion XL 150 mg PO qd Qualifiers: Depression Type: unspecified Qualified Code(s): F32.9 - Major depressive disorder, single episode, unspecified (3) Acute exacerbation of chronic obstructive airways disease Current Visit: No Status: Acute Assessment and plan: patient is active smoker, but trying to quit. on Bupropion Pulmonology appreciated BiPAP evaluation done On prednisone taper, antibiotics. On home medications of spiriva, singulair, and albuterol. (4) Tobacco dependence Current Visit: Yes Status: Acute Assessment and plan: extensive counseling for smoking cessation. Patient is working on quitting, Bupropion seams to help. (5) Abdominal pain Current Visit: Yes Status: Acute Assessment and plan: Abdominal pain resolved since patient had bowel movement. Patient on Senna BID prn. Will continue current. Qualifiers: Abdominal location: unspecified location Qualified Code(s): R10.9 - Unspecified abdominal pain Palliative-CN HPI - Data of Consult Requesting Physician: Brigido Barnard MD Primary Care Provider: Cynthia Clark CNP - Consult Narrative Reason for consult: goal of care History of present illness: Ms. Varner is a 52 year old female with history of stage IV COPD, current smoker, that presented from [place] with complains of shortness of breath and abdominal pain. On admission patient SO2 was 80% on 4 L nasal cannula and was placed on a nonrebreather mask with saturations in the high 90s. She states at home she is on 3-4 L oxygen supplementation, but her saturation drops to 50s with minimal exertion. She takes Breo ellipta, Spiriva, albuterol Nebulizer, and Ventolin regularly, but states that she feels like they no longer work for her. She is trying to quit smoking, and she was started on Wellbutrin with reduction of her smoking to 3-4 cigarettes per day. Patient lives alone with 2 dogs and 4 cats, [place], and does not have good access to services and transportation to doctor appointments. She is becoming less able to care for herself and her pets. At the time of exam, pt was in no acute distress, on 6L nasal canula, saturating 91-92. She was anxious about getting her xanax, denies any pain, is having regular bowel movements. CC: Brigido Barnard MD Past Med Surg Social Fam HX - Past Medical History Medical history: asthma, COPD Additional medical history: stage 4 lung ca Psychiatric history: no psych history - Past Surgical History Surgical History: non-contributory Additional surgical history: ectopic pregnancies - Social History Smoking Status: Current every day smoker Smokeless Tobacco Status: No Alcohol use: none Drug use: none - Family History Mother Living Status: Still Living Hx Family Cardiac Disorders: Yes Hx Family Endocrine Disorder: Yes (dm) Sister Hx Family Cardiac Disorders: Yes Medications and Allergies Albuterol Sulfate [Ventolin Hfa] 2 puff IH Q4H PRN 09/02/15 [History] Fluticasone Propionate Nasal [Flonase] 1 spr NS DAILY 05/27/16 [History] Montelukast [Singulair] 10 mg PO QPM 05/27/16 [History] Tiotropium [Spiriva] 18 mcg IH DAILY 05/27/16 [History] Aspirin 81 mg PO DAILY 07/11/17 [History] Ibuprofen 200 mg PO Q6H PRN 07/11/17 [History] Loratadine [Claritin] 10 mg PO DAILY 07/11/17 [History] Nitroglycerin [Nitrostat] 0.3 mg SL Q5M PRN 07/11/17 [History] diazePAM [Valium] 5 mg PO TID 03/11/18 [History] BuPROPion XL (24 HR) [Wellbutrin XL] 150 mg PO DAILY 03/23/18 [History] Fluticasone/Vilanterol [Breo Ellipta 100-25 Mcg INH] 1 puff IH DAILY 03/23/18 [ History] Omeprazole [PriLOSEC] 20 mg PO DAILY@0630 03/23/18 [History] 3 Allergy/AdvReac Type Severity Reaction Status Date / Time codeine Allergy Rash Verified 07/11/17 17:19 fluoxetine [From Prozac] Allergy Rash Verified 07/11/17 17:19 gabapentin Allergy Swelling Verified 03/11/18 17:14 of Lip/Tongue/Throat divalproex sodium AdvReac See Verified 03/11/18 16:35 [From Depakote] Comments - Constitutional Constitutional ROS PAL: fatigue, no chills, no fever(s) - Cardiovascular Cardiovascular ROS: dyspnea on exertion, leg edema, orthopnea, no chest pain - Respiratory Respiratory: dyspnea, dyspnea on exertion, no wheezing - Gastrointestinal Gastrointestinal: constipation, no abdominal pain - Genitourinary Palliative ROS female: no dysuria - Musculoskeletal Additional comments: negative - Psychiatric Psychiatric general PM: anxiety, depression Palliative Care-Exam - Constitutional Vitals: Temp Pulse Resp BP Pulse Ox 97.8 F 50 18 113/80 89 03/27/18 11:32 03/27/18 11:32 03/27/18 11:32 03/27/18 11:32 03/27/18 11:32 Exam: Vitals reviewed. General: Cachetic and sick looking patient, in no acute distress. Neck: No JVD, trachea midline HEENT: PERRL, normocephalic, atraumatic Cardiac: Regular Rate and Rhythm, Normal S1 and S2, No murmurs. Pulmonary: decreased breath sounds throughout, Crackles throughout worse in bilateral bases. Abdomen: soft, not tender to palpation Neuro: Alert and responsive, No focal deficits noted Vascular: Normal capillary refill Skin: No rashes noted on visualized skin Extremities: Clubbing BUE, No Cyanosis, No Edema, Normal Pulses Psych: Normal mood, pleasant, conversant Internal Medicine - CN: Reslt - Labs CBC & Chem 7: 03/24/18 04:50 03/27/18 04:05 Labs: BMP 03/27/18 04:05 Sodium 137 Potassium 4.4 Chloride 106 Carbon Dioxide 26 BUN 12 Creatinine 0.51 L Glucose 125 H Calcium 8.8 Liver Function 03/27/18 Range/Units 04:05 Total Bilirubin 0.3 (0.3-1.0) mg/dL AST 10 L (13-39) Units/L ALT 6 L (7-52) Units/L Alkaline Phosphatase 58 (34-104) Units/L Albumin 3.2 L (3.5-5.7) g/dL - ABG Interpretation ABG results: ABG ABG pH 7.43 pH Units (7.32-7.45) 03/27/18 03:59 ABG pCO2 45 mmHg (35-45) 03/27/18 03:59 ABG pO2 80 mmHg (85-104) L 03/27/18 03:59 ABG O2 Saturation 96 % (95-98) 03/27/18 03:59 - Impressions Impressions Chest CT 03/26/18 15:27 IMPRESSION: 1. Interval progression of changes of diffuse pulmonary fibrosis as well as emphysema. 2. Right pleural effusion with right basilar consolidation. Superimposed pneumonia is a consideration. 3. Pulmonary artery enlargement suggesting pulmonary artery hypertension. 4. Mild cardiomegaly. 5. Sequela from old granulomatous disease. D/ / Piyush Goins / Piyush Goins Interpreting Provider: Piyush Goins Echocardiogram 03/27/18 15:25 Impressions: LVEF 60%. Mild left ventricular diastolic dysfunction. RV size is borderline dilated by dimensions with low normal function by TD velocity. Tricuspid valve leaflets do not appear to coapt well. Moderate-severe tricuspid regurgitation. Mild-moderate pulmonic regurgitation. Moderate-severe pulmonary hypertension. Left Ventricular Wall Motion: Rest Echo Findings All wall segments showed normal motion. Findings: Study Quality * Technically adequate exam. ECG Findings * Normal sinus rhythm. Left Ventricle * LVEF 60%. * Mild left ventricular diastolic dysfunction. * Normal LV chamber size and wall thickness. Right Ventricle * RV size is borderline dilated by dimensions with low normal function by TD velocity. Left Atrium * Mildly dilated left atrium. Right Atrium * Moderately dilated right atrium. Mitral Valve * Normal mitral valve structure. * No mitral stenosis. * Trace mitral regurgitation. Aortic Valve * No aortic regurgitation. * Trileaflet aortic valve. * No aortic stenosis. Tricuspid Valve * Tricuspid valve leaflets do not appear to coapt well. * Moderate-severe tricuspid regurgitation. * Estimated RA pressure is 8 mmHg. * Estimated RVSP is 62 mmHg. * Moderate-severe pulmonary hypertension. Pulmonic Valve * Normal pulmonic valve structure. * No pulmonic stenosis. * Mild-moderate pulmonic regurgitation. Pulmonary Artery * Normal visualized portions of the main pulmonary artery. Aorta * Normally sized aortic root. Pericardium * There is no pericardial effusion present. Interatrial Septum * No evidence of PFO by color Doppler. IVC * The IVC is not dilated. * < 50% respiratory change. Consult Discharge Plan - Plan Referrals: Cynthia Clark CNP [Primary Care Provider] - Palliative Quality Palliative Quality: Screen for Code Status: Yes, Screen for Goals of Care: Yes, Screen for Pain: Yes (no pain), Screen for Nausea/Vomitting: Yes (no nausea or vomiting) Code Status: 03/23/18 23:27 Resuscitation Status: Active [RES] Routine Comment: Resuscitation Status: Full Code
--- NOTE | 2018-03-27 16:42 | Pulmonology Progress Note ---
Date of Encounter: 03/27/18 Time of Encounter: 11:30 Assessment and Plan (1) Acute and chronic respiratory failure with hypoxia Current Visit: Yes Status: Acute Acute on chronic hypoxic respiratory failure. Is contributed to by the end stage emphysema with pulmonary fibrosis now recently developed moderate to severe pulmonary hypertension that TIPS the prognosis of the patient changed from poor to very poor. Patient will have limited exercise tolerance will have always will be shortness of breath on exertion will need high flow portable oxygen concentrator if she is wants to move around because s she need high flow oxygen requirement at least 6-8 L please coordinate with social work to arrange this again when before discharge. (2) Pulmonary emphysema with fibrosis of lung Current Visit: Yes Status: Acute Patient has significant emphysema and severe pulmonary fibrosis 7 exacerbation secondary to pneumonia to start on antibiotics. To follow sputum cultures. To continue bronchodilators and steroids. The recent echo showed moderate to severe pulmonary hypertension that makes the prognosis of the disease poor. Patient will be a poor candidate for lung transplant will be be evaluated as an outpatient. To continue prednisone is tapered for at least 21 days to complete a 10 day course of antibiotics when she is ready to go home transitioned to po doxycycline. Will need high flow portable oxygen concentrator and will need high flow in the range of 8-10 L per minute. (3) Tobacco dependence Current Visit: Yes Status: Acute Counseled about the importance of smoking cessation (4) Goals of care, counseling/discussion Current Visit: Yes Status: Acute Severe COPD and pulmonary fibrosis. She has in the background of moderately severe pulmonary hypertension patient prognosis extremely poor will involve palliative care. (5) DVT prophylaxis Current Visit: Yes Status: Acute Continue current thromboprophylaxis. Subjective Principal diagnosis: Pneumonia with COPD exacerbation Interval history: Patient is here as she had pneumonia doing well . COPD and pulmonary fibrosis exacerbation her echo showed moderate to severe pulmonary hypertension. Patient says that her shortness of breath is slightly better but denies any chest pain, denies any palpitation or syncope. Objective PUL Vital signs: Last Vital Signs Temp 97.8 F 03/27/18 11:32 Pulse 50 03/27/18 11:32 Resp 18 03/27/18 11:32 BP 113/80 03/27/18 11:32 Pulse Ox 89 03/27/18 11:32 Auscultation: bilateral: wheezes (scattered wheezes ), other (bilateral basilar crackles ) Extremities: other (clubbing ) Results - Laboratory Findings CBC and BMP: 03/24/18 04:50 03/27/18 04:05 ABG ABG pH 7.43 pH Units (7.32-7.45) 03/27/18 03:59 ABG pCO2 45 mmHg (35-45) 03/27/18 03:59 ABG pO2 80 mmHg (85-104) L 03/27/18 03:59 ABG O2 Saturation 96 % (95-98) 03/27/18 03:59 Abnormal lab findings: Abnormal lab results RDW 14.8 % (11.5-14.5) H 03/24/18 04:50 ABG pO2 80 mmHg (85-104) L 03/27/18 03:59 ABG HCO3 30 mEq/L (21-27) H 03/27/18 03:59 ABG Total CO2 31 mEq/L (20-26) H 03/27/18 03:59 ABG Base Excess 5 mEq/L (-2 to 3) H 03/27/18 03:59 Creatinine 0.51 mg/dL (0.60-1.20) L 03/27/18 04:05 Glucose 125 mg/dL (70-105) H 03/27/18 04:05 POC Glucose 115 mg/dL (70-99) H 03/27/18 01:30 AST 10 Units/L (13-39) L 03/27/18 04:05 ALT 6 Units/L (7-52) L 03/27/18 04:05 Serum Total Protein 5.9 g/dL (6.4-8.9) L 03/27/18 04:05 Albumin 3.2 g/dL (3.5-5.7) L 03/27/18 04:05 - Clinical Findings Intake & Output: Intake & Output 03/27/18 03/27/18 03/27/18 07:59 15:59 23:59 Intake Total 0 / 0 1440 / 1440 Output Total 2049 / 2049 Balance 0 / 0 -610 / -610 Weight 56.4 kg Consult Discharge Plan - Plan Referrals: Cynthia Clark, [employer] [Primary Care Provider] -
[2018-03-28] MEDS: Doxycycline 100 MG in 0.9 % Sodium Chloride Mini Bag 100 ML IVPB SCH ×2 (00:40→12:12)
[2018-03-28] MEDS: *HR* Heparin 5,000 UNIT/ML VIAL SQ SCH ×3 (05:32→21:39)
[2018-03-28 05:49] LABS: Basophils % 0.1 %; Hematocrit 43.6 % (35.3-44.9); Hemoglobin 13.7 g/dL (11.5-15.4); Immature Granulocytes % 0.6 % (0-4); Lymphocytes % 13.9 %; Mean Corpuscular HGB Conc 31.4 g/dL (31.6-35.5); Mean Corpuscular Hemoglobin 28.8 pg (28.0-33.3); Mean Corpuscular Volume 91.6 fL (83.0-100.0); Mean Platelet Volume 11.6 fL (9.4-12.4); Monocytes # 0.6 K/mcL (0.0-1.3); Monocytes % 3.8 %; Platelet Count 339 K/mcL (140-400); Red Blood Count 4.76 M/mcL (3.82-4.97); Red Cell Distribution Width 14.9 % (11.5-14.5); Segmented Neutrophils % 81.6 %
[2018-03-28 05:53] LABS: Neutrophils # 11.8 K/mcL (1.6-8.9)
[2018-03-28 06:05] LABS: Alanine Aminotransferase 9 Units/L (7-52); Albumin 3.4 g/dL (3.5-5.7); Albumin/Globulin Ratio 1.1 (1.1-2.2); Alkaline Phosphatase 59 Units/L (34-104); Aspartate Amino Transferase 13 Units/L (13-39); BUN/Creatinine Ratio 24 (6-26); Bilirubin,Total 0.2 mg/dL (0.3-1.0); Blood Urea Nitrogen 15 mg/dL (6-20); Carbon Dioxide 26 mEq/L (23-29); Chloride 105 mEq/L (98-107); Globulin 3.2 g/dL (2.4-3.5); Glucose 133 mg/dL (70-105); Osmolality,Calculated 291 (280-300); Potassium 4.2 mEq/L (3.5-5.1); Sodium 139 mEq/L (136-145); Total Protein 6.6 g/dL (6.4-8.9); eGFR For Non-African Americans > 60 (> 60)
--- NOTE | 2018-03-28 10:19 | Palliative Progress Note ---
Date of Encounter: 03/28/18 Time of Encounter: 09:00 - Assessment and plan (1) Goals of care, counseling/discussion Current Visit: Yes Status: Acute Assessment and plan: Famly meeting today between treatment team (myself, FOOD SAFETY FIELD SPECIALIST Bryson Cabrera and primary international relations professor Dr. De Oliveira), patient and patient's sister Phoebe Caldera. Discussed at length patient's current medical condition, natural history of the disease, treatment options and prognosis. Explained that patient's oxygen needs are increasing andt that she is in the terminal stages of COPD with a prognosis of months. Patient's goal remains to be discharged home. Discussed how patient can help and be helped to better manage her disease. Patient has several social challenges related to the fact that she is isolated, and her ability to attend to her ADLs is greatly limited by her respiratory status. SW discussed possible options for oxygen and transportation to appointments. We also involved floor outpatient case manager in searching for resources. Re-discussed code status and advance care planing. Patient designated her sister Phoebe as POA, and decided for DNRCC-arrest and DNI. Forms signed and scanned in EMR. (2) Depression Current Visit: Yes Status: Chronic Assessment and plan: patient was less anxious after receiving her Diazepam. Diazepam was changed to TID standing. continue Diazepam and Bupropion Qualifiers: Depression Type: unspecified Qualified Code(s): F32.9 - Major depressive disorder, single episode, unspecified (3) Acute exacerbation of chronic obstructive airways disease Current Visit: No Status: Acute Assessment and plan: patient is active smoker, but trying to quit. on Bupropion Pulmonology appreciated BiPAP evaluation done, patient does not qualify due to pCO2 <53 On prednisone taper, antibiotics. On home medications of spiriva, singulair, and albuterol. (4) Tobacco dependence Current Visit: Yes Status: Acute Assessment and plan: Ongoing counseling continue Bupropion may start nicotine patch if patient agreeable. - Time Spent With Patient Total time spent is greater than 50% face to face with patient in coordination of care (as documented) at patient's floor/unit and/or counseling patient: Greater than 35 minutes - Subjective Interval history: Patient was sitting in bed, complaining of feeling short of breath because she walked to the bedside commode. SpO2 was in the low 80s at first, but then improved to 91-92 at rest. Pt's sister Phoebe was present. She denied any dizziness, chest pain, nausea, vomiting, abdominal pain. - Constitutional Vitals: Abnormal lab results WBC 14.5 K/mcL (4.3-11.1) H D 03/28/18 05:11 MCHC 31.4 g/dL (31.6-35.5) L 03/28/18 05:11 RDW 14.9 % (11.5-14.5) H 03/28/18 05:11 Neutrophils # 11.8 K/mcL (1.6-8.9) H 03/28/18 05:11 ABG pO2 80 mmHg (85-104) L 03/27/18 03:59 ABG HCO3 30 mEq/L (21-27) H 03/27/18 03:59 ABG Total CO2 31 mEq/L (20-26) H 03/27/18 03:59 ABG Base Excess 5 mEq/L (-2 to 3) H 03/27/18 03:59 Glucose 133 mg/dL (70-105) H 03/28/18 05:11 Total Bilirubin 0.2 mg/dL (0.3-1.0) L 03/28/18 05:11 Albumin 3.4 g/dL (3.5-5.7) L 03/28/18 05:11 Exam: Vitals reviewed. General: Cachetic and sick looking patient, in no acute distress. Neck: No JVD, trachea midline HEENT: PERRL, normocephalic, atraumatic Cardiac: Regular Rate and Rhythm, Normal S1 and S2, No murmurs. Pulmonary: decreased breath sounds throughout, Crackles throughout worse in bilateral bases. Abdomen: soft, not tender to palpation Neuro: Alert and responsive, No focal deficits noted Skin: No rashes noted on visualized skin Extremities: Clubbing, No Cyanosis, No Edema, Normal Pulses Psych: anxious, cooperative. Palliative Quality Palliative Quality: Screen for Code Status: Yes, Screen for Goals of Care: Yes, Screen for Pain: Yes (no pain), If Pain Regimen Started, Initiate Bowel Regimen : Yes, Screen for Nausea/Vomitting: Yes (no nausea or vomiting) Code Status: 03/23/18 23:27 Resuscitation Status: Active [RES] Routine Comment: Resuscitation Status: Full Code - Labs CBC & Chem 7: 03/28/18 05:11 03/28/18 05:11 Labs: Laboratory Results - last 24 hr 03/27/18 03/27/18 03/28/18 07:31 11:39 05:11 WBC RBC Hgb Hct MCV MCH MCHC RDW Plt Count MPV Immature Gran % Seg Neutrophils % Lymphocytes % Monocytes % Eosinophils % Basophils % Neutrophils # Lymphocytes # Monocytes # Eosinophils # Basophils # Sodium 139 Potassium 4.2 Chloride 105 Carbon Dioxide 26 BUN 15 Creatinine 0.62 Est GFR ( Amer) > 60 Est GFR (Non-Af Amer) > 60 BUN/Creatinine Ratio 24 Glucose 133 H POC Glucose 108 H 87 Calculated Osmolality 291 Calcium 9.0 Total Bilirubin 0.2 L AST 13 ALT 9 Alkaline Phosphatase 59 Serum Total Protein 6.6 Albumin 3.4 L Globulin 3.2 Albumin/Globulin Ratio 1.1 03/28/18 05:11 WBC 14.5 H D RBC 4.76 Hgb 13.7 Hct 43.6 MCV 91.6 MCH 28.8 MCHC 31.4 L RDW 14.9 H Plt Count 339 MPV 11.6 Immature Gran % 0.6 Seg Neutrophils % 81.6 Lymphocytes % 13.9 Monocytes % 3.8 Eosinophils % 0.0 Basophils % 0.1 Neutrophils # 11.8 H Lymphocytes # 2.0 Monocytes # 0.6 Eosinophils # 0.0 Basophils # 0.0 Sodium Potassium Chloride Carbon Dioxide BUN Creatinine Est GFR ( Amer) Est GFR (Non-Af Amer) BUN/Creatinine Ratio Glucose POC Glucose Calculated Osmolality Calcium Total Bilirubin AST ALT Alkaline Phosphatase Serum Total Protein Albumin Globulin Albumin/Globulin Ratio - Impressions Impressions Echocardiogram 03/27/18 15:25 Impressions: LVEF 60%. Mild left ventricular diastolic dysfunction. RV size is borderline dilated by dimensions with low normal function by TD velocity. Tricuspid valve leaflets do not appear to coapt well. Moderate-severe tricuspid regurgitation. Mild-moderate pulmonic regurgitation. Moderate-severe pulmonary hypertension. Left Ventricular Wall Motion: Rest Echo Findings All wall segments showed normal motion. Findings: Study Quality * Technically adequate exam. ECG Findings * Normal sinus rhythm. Left Ventricle * LVEF 60%. * Mild left ventricular diastolic dysfunction. * Normal LV chamber size and wall thickness. Right Ventricle * RV size is borderline dilated by dimensions with low normal function by TD velocity. Left Atrium * Mildly dilated left atrium. Right Atrium * Moderately dilated right atrium. Mitral Valve * Normal mitral valve structure. * No mitral stenosis. * Trace mitral regurgitation. Aortic Valve * No aortic regurgitation. * Trileaflet aortic valve. * No aortic stenosis. Tricuspid Valve * Tricuspid valve leaflets do not appear to coapt well. * Moderate-severe tricuspid regurgitation. * Estimated RA pressure is 8 mmHg. * Estimated RVSP is 62 mmHg. * Moderate-severe pulmonary hypertension. Pulmonic Valve * Normal pulmonic valve structure. * No pulmonic stenosis. * Mild-moderate pulmonic regurgitation. Pulmonary Artery * Normal visualized portions of the main pulmonary artery. Aorta * Normally sized aortic root. Pericardium * There is no pericardial effusion present. Interatrial Septum * No evidence of PFO by color Doppler. IVC * The IVC is not dilated. * < 50% respiratory change. - ABG Interpretation ABG results: ABG ABG pH 7.43 pH Units (7.32-7.45) 03/27/18 03:59 ABG pCO2 45 mmHg (35-45) 03/27/18 03:59 ABG pO2 80 mmHg (85-104) L 03/27/18 03:59 ABG O2 Saturation 96 % (95-98) 03/27/18 03:59 Consult Discharge Plan - Plan Referrals: Cynthia Clark CNP [Primary Care Provider] -
[2018-03-28] MEDS: Loratadine 10 MG TABLET PO SCH (10:42)
[2018-03-28] MEDS: BuPROPion XL (24 HR) 150 MG TABLET PO SCH (10:42)
[2018-03-28] MEDS: diazePAM 5 MG TABLET PO SCH ×2 (10:42→18:10)
[2018-03-28] MEDS: Aspirin 81 MG TAB.CHEW PO SCH (10:42)
[2018-03-28] MEDS: cefTRIAXone 1,000 MG in Water for inj. (sterile) 20 ML 10 ML IVP SCH (10:43)
[2018-03-28] MEDS: MethylPREDNISolone 40 MG/ML VIAL IVP SCH ×2 (10:43→21:40)
[2018-03-28] MEDS: (Fluticasone/Vilanterol [Breo Ellipta 100-25 Mcg Inh]) IH SCH (10:44)
[2018-03-28] MEDS: Fluticasone Propionate Nasal 50 MCG/SPRAY BOTTLE NS SCH (10:44)
[2018-03-28] MEDS: Tiotropium 18 MCG inhalation IH SCH (11:11)
[2018-03-28 12:06] LABS: ABG Base Excess 5 mEq/L (-2 to 3); ABG HCO3 30 mEq/L (21-27); ABG Oxygen Saturation 96 % (95-98); ABG PCO2 42 mmHg (35-45); ABG PH 7.46 pH Units (7.32-7.45); ABG PO2 75 mmHg (85-104); ABG TCO2 31 mEq/L (20-26)
--- NOTE | 2018-03-28 12:47 | Internal Med Progress Note ---
<Shalonda De Oliveira - Last Filed: 03/28/18 14:46> Hospitalist Progress Note - Encounter Date of Encounter: 03/28/18 Time of Encounter: 09:41 - Subjective Interval History: Patient is a 52 yo Female with history of COPD who presented to the emergency department at [facility] on 03/23/18 with complaints of shortness of breath, worsened over the last few weeks. She states that home she uses 3 L of oxygen normally but is increased to 5 L as she believes her long cord and mouth breathing does not give her adequate oxygen at only 3 L. Patient denies any recent cough, cold , or congestion. She states she has had abdominal pain for which she is been seen multiple times at [facility] emergency department. After CT abdomen revealed free fluid in the pelvis and questionable small bowel obstruction the patient was recommended to be admitted but she left AMA after improvement in her symptoms with enema. Repeat CT on 03/24/18 revealed pericholecytic fluid. Today the patient states she is feeling about the same as yesterday. Her breathing has been stable overnight on nasal cannula and oxymask 6-8 liters. She denies any abdominal pain. She discussed with palliative care yesterday and has decided she would like to be DNR with her sister as a POA. Her sister is present today to discuss her care and prognosis. - Exam Vitals: Temp Pulse Resp BP Pulse Ox 98.3 F 63 20 151/85 92 03/28/18 10:39 03/28/18 10:39 03/28/18 11:12 03/28/18 10:39 03/28/18 11:12 Exam: Vitals reviewed. General: 52 yo white female appears older than stated age sitting upright in bed , leaning forward. In mild respiratory distress. Takes pauses after sentences to catch her breath, on 8L NC Neck: No JVD, trachea midline HEENT: PERRL, normocephalic, atraumatic Cardiac: Regular Rate and Rhythm, Normal S1 and S2, No murmurs appreciated Pulmonary: decreased breath sounds throughout, Crackles throughout worse in bilateral bases. Abdomen: soft, no tenderness. no bruits, no guarding, negative murphys sign, no mcburneys tenderness Neuro: Alert and responsive, No focal deficits noted Vascular: Normal capillary refill Skin: No rashes noted on visualized skin Extremities: Clubbing BUE, No Cyanosis, No Edema, Normal Pulses Psych: Normal mood, pleasant, conversant - Assessment and Plan (1) COPD exacerbation Current Visit: Yes Status: Acute Assessment and Plan: - Underwent BiPAP evaluation overnight, patient did not qualify due to PCO2 of 45 - CT chest 03/26/18 revealed worsened progression of pulmonary fibrosis - Echo revealed EF of 60% with moderate to severe pulmonary hypertension - Pulmonology recommends doxycycline for 10 days and prednisone 21 day taper when discharged - Will require pulmonology follow up in 6 weeks - Palliative care consulted for goals of care discussion, after long discussion with patient and her sister she has decided to become DNR and her sister will be PoA. - Patient adamantly declines the option of discharge to SNF as she has animals to care for and is unwilling to give them up, sister will work on establishing a new housing situation nearby - Now on home medications of spiriva, singulair, and albuterol. Continue doxycycline and rocephin. Will switch Solumedrol to prednisone prior to discharge - manager e commerce attempting to find home oxygen company as she will require 8-10 Lpm and concentrator, she has worked with numerous companies and was aggressive to their employees in the past (2) Abdominal pain Current Visit: Yes Status: Acute Assessment and Plan: - Improving (3) Hypokalemia Current Visit: Yes Status: Acute Assessment and Plan: Potassium stable at 4.2 today (4) Tobacco abuse Current Visit: Yes Status: Chronic Assessment and Plan: - Again discussed the need to stop smoking upon discharge (5) Depression Current Visit: Yes Status: Chronic Assessment and Plan: - Continue wellbutrin and valium (6) DVT prophylaxis Current Visit: Yes Status: Acute Assessment and Plan: - On heparin SQ - Time Spent with Patient Total time spent is greater than 50% in coordination of care (as documented) at patient's floor/unit and/or counseling patient: Internal Medicine: Result - Labs CBC & Chem 7: 03/28/18 05:11 03/28/18 05:11 Labs: Short CBC 03/28/18 Range/Units 05:11 WBC 14.5 H D (4.3-11.1) K/mcL Hgb 13.7 (11.5-15.4) g/dL Hct 43.6 (35.3-44.9) % Plt Count 339 (140-400) K/mcL Neutrophils # 11.8 H (1.6-8.9) K/mcL BMP 03/28/18 05:11 Sodium 139 Potassium 4.2 Chloride 105 Carbon Dioxide 26 BUN 15 Creatinine 0.62 Glucose 133 H Calcium 9.0 Liver Function 03/28/18 Range/Units 05:11 Total Bilirubin 0.2 L (0.3-1.0) mg/dL AST 13 (13-39) Units/L ALT 9 (7-52) Units/L Alkaline Phosphatase 59 (34-104) Units/L Albumin 3.4 L (3.5-5.7) g/dL - ABG Interpretation ABG results: ABG ABG pH 7.46 pH Units (7.32-7.45) H 03/28/18 11:48 ABG pCO2 42 mmHg (35-45) 03/28/18 11:48 ABG pO2 75 mmHg (85-104) L 03/28/18 11:48 ABG O2 Saturation 96 % (95-98) 03/28/18 11:48 Consult Discharge Plan - Plan Referrals: Cynthia Clark CNP [Primary Care Provider] - <Abdi Starr - Last Filed: 03/28/18 17:34> Hospitalist Progress Note - Encounter Date of Encounter: 03/28/18 - Exam Vitals: Temp Pulse Resp BP Pulse Ox 97.7 F 63 20 130/98 92 03/28/18 16:45 03/28/18 16:45 03/28/18 16:45 03/28/18 16:45 03/28/18 16:45 - Assessment and Plan (1) DVT prophylaxis Current Visit: Yes Status: Acute (2) Depression Current Visit: Yes Status: Chronic (3) Hypokalemia Current Visit: Yes Status: Acute (4) Acute and chronic respiratory failure with hypoxia Current Visit: Yes Status: Acute (5) Tobacco dependence Current Visit: Yes Status: Acute (6) COPD (chronic obstructive pulmonary disease) Current Visit: Yes Status: Acute (7) Dehydration Current Visit: Yes Status: Acute - Time Spent with Patient Total time spent is greater than 50% in coordination of care (as documented) at patient's floor/unit and/or counseling patient: Internal Medicine: Result - Labs CBC & Chem 7: 03/28/18 05:11 03/28/18 05:11 Labs: Short CBC 03/28/18 Range/Units 05:11 WBC 14.5 H D (4.3-11.1) K/mcL Hgb 13.7 (11.5-15.4) g/dL Hct 43.6 (35.3-44.9) % Plt Count 339 (140-400) K/mcL Neutrophils # 11.8 H (1.6-8.9) K/mcL BMP 03/28/18 05:11 Sodium 139 Potassium 4.2 Chloride 105 Carbon Dioxide 26 BUN 15 Creatinine 0.62 Glucose 133 H Calcium 9.0 Liver Function 03/28/18 Range/Units 05:11 Total Bilirubin 0.2 L (0.3-1.0) mg/dL AST 13 (13-39) Units/L ALT 9 (7-52) Units/L Alkaline Phosphatase 59 (34-104) Units/L Albumin 3.4 L (3.5-5.7) g/dL - ABG Interpretation ABG results: ABG ABG pH 7.46 pH Units (7.32-7.45) H 03/28/18 11:48 ABG pCO2 42 mmHg (35-45) 03/28/18 11:48 ABG pO2 75 mmHg (85-104) L 03/28/18 11:48 ABG O2 Saturation 96 % (95-98) 03/28/18 11:48 - Attending Attestation I examined this patient and my medical decision-making was reviewed with the Resident Physician Dr. De Oliveira . I agree with the documented findings, disposition and treatment plan as described except to the extent set forth below. Ms. Varner is a 52 y/o F with advanced COPD, Pulm fibrosis and interstitial lung disease pt admitted here for acute on chronic hypoxic resp failure. She is still on 5 lit O2. States feels little better today, however still has severe IFSCHER and SPO2 dropping down even with simple exertion. Gen : A, A, O x 3 Chest: Diminished BS b/l, moderate to severe wheezing, no crackles Heart : S1S2+ RRR a/p 1. Acute on chronic hypoxic resp failure 2. Acute COPD exacerbation 3. Acute bronchitis 4. Acute pneumonia - mostly bacterial cont broad spec abx Doxy cont Duoneb and O2 start tapering steroids slowly Pt wanted to go home only, with her cats and does, mold in her trailer home with her advanced COPD she is high risk pt and high chances of worsen her respiratory status. Palliative care team consulted. changed code status to DNR-DNI <Shalonda De Oliveira - Last Filed: 03/28/18 14:46> (2) Abdominal pain Qualifiers: Abdominal location: unspecified location Qualified Code(s): R10.9 - Unspecified abdominal pain (5) Depression Qualifiers: Depression Type: unspecified Qualified Code(s): F32.9 - Major depressive disorder, single episode, unspecified <Abdi Starr - Last Filed: 03/28/18 17:34> (2) Depression Qualifiers: Depression Type: unspecified Qualified Code(s): F32.9 - Major depressive disorder, single episode, unspecified (6) COPD (chronic obstructive pulmonary disease) Qualifiers: COPD type: COPD with acute exacerbation Qualified Code(s): J44.1 - Chronic obstructive pulmonary disease with (acute) exacerbation
--- NOTE | 2018-03-28 15:08 | Pulmonology Progress Note ---
Date of Encounter: 03/28/18 Time of Encounter: 15:00 Assessment and Plan (1) Acute and chronic respiratory failure with hypoxia Current Visit: Yes Status: Acute Acute on chronic hypoxic respiratory failure. Is contributed to by the end stage emphysema with pulmonary fibrosis now recently developed moderate to severe pulmonary hypertension that TIPS the prognosis of the patient changed from poor to very poor. Patient will have limited exercise tolerance will have always will be shortness of breath on exertion will need high flow portable oxygen concentrator if she is wants to move around because s she need high flow oxygen requirement at least 8-10 L . Spoke with telehealth case manager to arrange this before discharge. (2) Pulmonary emphysema with fibrosis of lung Current Visit: Yes Status: Acute Patient has significant emphysema and severe pulmonary fibrosis 7 exacerbation secondary to pneumonia to start on antibiotics. . To continue bronchodilators and steroids. The recent echo showed moderate to severe pulmonary hypertension that makes the prognosis of the disease poor. Patient will be a poor candidate for lung transplant will be be evaluated as an outpatient. To continue prednisone is tapered for at least 21 days to complete a 10 day course of antibiotics when she is ready to go home transitioned to po doxycycline. Will need high flow portable oxygen concentrator and will need high flow in the range of 8-10 L per minute. (3) Tobacco dependence Current Visit: Yes Status: Acute Counseled about the importance of smoking cessation (4) Goals of care, counseling/discussion Current Visit: Yes Status: Acute Severe COPD and pulmonary fibrosis. She has in the background of moderately severe pulmonary hypertension patient prognosis . Will sign off please call with questions patient will need follow up with pulmonary in 6 weeks (5) DVT prophylaxis Current Visit: Yes Status: Acute Continue current thromboprophylaxis. Subjective Principal diagnosis: Pneumonia with COPD exacerbation Interval history: Patient is here as she had pneumonia doing well . COPD and pulmonary fibrosis exacerbation her echo showed moderate to severe pulmonary hypertension. Patient says that her shortness of breath is slightly better but denies any chest pain, denies any palpitation or syncope. 03/28 Patient is still feeling the same shortness of breadth , denies any chest pain or tightness , denies any fever or chills. Objective PUL Vital signs: Last Vital Signs Temp 97.6 F 03/28/18 12:45 Pulse 63 03/28/18 12:45 Resp 18 03/28/18 12:45 BP 140/88 03/28/18 12:45 Pulse Ox 92 03/28/18 12:45 Auscultation: bilateral: diminished breath sounds (basilar diminished breadth sounds ), other (bilateral scattered crackles ) Results - Laboratory Findings CBC and BMP: 03/28/18 05:11 03/28/18 05:11 ABG ABG pH 7.46 pH Units (7.32-7.45) H 03/28/18 11:48 ABG pCO2 42 mmHg (35-45) 03/28/18 11:48 ABG pO2 75 mmHg (85-104) L 03/28/18 11:48 ABG O2 Saturation 96 % (95-98) 03/28/18 11:48 Abnormal lab findings: Abnormal lab results WBC 14.5 K/mcL (4.3-11.1) H D 03/28/18 05:11 MCHC 31.4 g/dL (31.6-35.5) L 03/28/18 05:11 RDW 14.9 % (11.5-14.5) H 03/28/18 05:11 Neutrophils # 11.8 K/mcL (1.6-8.9) H 03/28/18 05:11 ABG pH 7.46 pH Units (7.32-7.45) H 03/28/18 11:48 ABG pO2 75 mmHg (85-104) L 03/28/18 11:48 ABG HCO3 30 mEq/L (21-27) H 03/28/18 11:48 ABG Total CO2 31 mEq/L (20-26) H 03/28/18 11:48 ABG Base Excess 5 mEq/L (-2 to 3) H 03/28/18 11:48 Glucose 133 mg/dL (70-105) H 03/28/18 05:11 Total Bilirubin 0.2 mg/dL (0.3-1.0) L 03/28/18 05:11 Albumin 3.4 g/dL (3.5-5.7) L 03/28/18 05:11 - Clinical Findings Intake & Output: Intake & Output 03/27/18 03/28/18 03/28/18 23:59 07:59 15:59 Intake Total 120 / 120 100 / 100 240 / 240 Output Total 1725 / 1725 Balance 120 / 120 100 / 100 -1485 / -1485 Weight 55.6 kg Consult Discharge Plan - Plan Referrals: Cynthia Clark CNP [Primary Care Provider] -
[2018-03-29] MEDS: Doxycycline 100 MG in 0.9 % Sodium Chloride Mini Bag 100 ML IVPB SCH ×2 (00:31→14:05)
[2018-03-29] MEDS: diazePAM 5 MG TABLET PO SCH ×2 (00:32→09:05)
[2018-03-29] MEDS: *HR* Heparin 5,000 UNIT/ML VIAL SQ SCH ×2 (05:00→14:06)
[2018-03-29 06:32] VITALS: BP 131/88
[2018-03-29] MEDS: Tiotropium 18 MCG inhalation IH SCH (07:52)
[2018-03-29] MEDS: Aspirin 81 MG TAB.CHEW PO SCH (09:05)
[2018-03-29] MEDS: BuPROPion XL (24 HR) 150 MG TABLET PO SCH (09:05)
[2018-03-29] MEDS: MethylPREDNISolone 40 MG/ML VIAL IVP SCH (09:06)
[2018-03-29] MEDS: cefTRIAXone 1,000 MG in Water for inj. (sterile) 20 ML 10 ML IVP SCH (09:06)
[2018-03-29] MEDS: Loratadine 10 MG TABLET PO SCH (09:06)
[2018-03-29] MEDS: (Fluticasone/Vilanterol [Breo Ellipta 100-25 Mcg Inh]) IH SCH (09:07)
[2018-03-29] MEDS: Fluticasone Propionate Nasal 50 MCG/SPRAY BOTTLE NS SCH (09:08)
--- NOTE | 2018-03-29 12:08 | Discharge Summary ---
<Shalonda De Oliveira - Last Filed: 03/29/18 15:03> Date of Encounter: 03/29/18 Time of Encounter: 12:04 - Discharge Diagnosis (1) COPD exacerbation Priority: Primary Status: Acute (2) Abdominal pain Priority: Secondary Status: Acute Qualifiers: Abdominal location: unspecified location Qualified Code(s): R10.9 - Unspecified abdominal pain (3) Hypokalemia Priority: Secondary Status: Acute (4) Tobacco abuse Priority: Secondary Status: Chronic (5) Depression Priority: Secondary Status: Chronic Qualifiers: Depression Type: unspecified Qualified Code(s): F32.9 - Major depressive disorder, single episode, unspecified (6) DVT prophylaxis Priority: Secondary Status: Acute Hospital course: Ms. Varner is a 52 year old female who presents the [facility] emergency department on 03/24/18 with complaints of increasing dyspnea on exertion. At home she was maintained on 3 L but she is been experiencing significant shortness of breath and increased her oxygen to 5 L. she was also complaining of abdominal pain and nausea which had previously been evaluated on multiple occasions at [facility] emergency department with unremarkable CT abdomens. Repeat CT abdomen revealed questionable. Cholecystic fluid and right upper quadrant ultrasound revealed cholelithiasis without evidence of acute cholecystitis. The patient underwent workup for COPD exacerbation with 2 nebs, IV steroids and azithromycin. Over the course of several days the patient did not clinically improve, at times requiring 8-10 L nasal cannula or BiPAP. Pulmonology was consulted at and she underwent CT chest which revealed worsening of her pulmonary fibrosis and emphysema. Echocardiogram revealed evidence of moderate to severe pulmonary hypertension with an EF of 60%. Due to the severity of her disease and very poor prognosis palliative care was contacted and with the help of her sister the patient decided to become DNR status. Patient has many social obstacles to her care as she lives at home by herself in a trailer which reportedly has mold. She states she has been unable to make it to the grocery store as she has no transportation and has not been eating well. She also maintains many animals and has recently decreased to 5 animals but she adamantly declines going to a facility where her animals are not allowed. Otherwise she does not have great social support as her family lives far away and she does not have a good relationship with them. Her sister was made her medical PoA and ensured us she would be attempting to find more adequate housing for her sister. The patient will have significant needs at home requiring 8-10 L per pulmonology recommendations and therefore will require home health aide. She will require an oxygen concentrator to maintain her saturations. She is to follow-up with pulmonology in 6 weeks' time. Prescriptions written for 20 day prednisone taper as well as 10 day course of doxycycline per pulmonology recommendations. The patient understands her prognosis and many extensive discussions were had encouraging her her smoking cessation and compliance with medications and follow -up. The patient agrees with and understands the course of treatment plan and including plan for discharge and follow-up. All questions answered. Discharge discussed with: patient, family, nurse, social work, case management Time spent discussing smoking cessation with patient: more than 10 minutes - Time Spent with Patient Total time spent providing and/or coordinating discharge services: Greater than 30 minutes - Discharge Medications Prescriptions: Doxycycline 100 mg PO BID 10 Days #20 capsule predniSONE [Prednisone] See Taper PO AD 20 Days #51 tab.ds.pk Home Medications: Albuterol Sulfate [Ventolin Hfa] 2 puff IH Q4H PRN 09/02/15 [History] Fluticasone Propionate Nasal [Flonase] 1 spr NS DAILY 05/27/16 [History] Montelukast [Singulair] 10 mg PO QPM 05/27/16 [History] Tiotropium [Spiriva] 18 mcg IH DAILY 05/27/16 [History] Aspirin 81 mg PO DAILY 07/11/17 [History] Ibuprofen 200 mg PO Q6H PRN 07/11/17 [History] Loratadine [Claritin] 10 mg PO DAILY 07/11/17 [History] Nitroglycerin [Nitrostat] 0.3 mg SL Q5M PRN 07/11/17 [History] diazePAM [Valium] 5 mg PO TID 03/11/18 [History] BuPROPion XL (24 HR) [Wellbutrin Xl] 150 mg PO DAILY 03/23/18 [History] Fluticasone/Vilanterol [Breo Ellipta 100-25 Mcg INH] 1 puff IH DAILY 03/23/18 [ History] Omeprazole [PriLOSEC] 20 mg PO DAILY@0630 03/23/18 [History] Doxycycline 100 mg PO BID 10 Days #20 capsule 03/29/18 [Rx] predniSONE [Prednisone] See Taper PO AD 20 Days #51 tab.ds.pk 03/29/18 [Rx] Allergies/Adverse Reactions: 3 Allergy/AdvReac Type Severity Reaction Status Date / Time codeine Allergy Rash Verified 07/11/17 17:19 fluoxetine [From Prozac] Allergy Rash Verified 07/11/17 17:19 gabapentin Allergy Swelling Verified 03/11/18 17:14 of Lip/Tongue/Throat divalproex sodium AdvReac See Verified 03/11/18 16:35 [From Depakote] Comments Date of admission: 03/23/18 23:27 Primary care physician: Cynthia Clark CNP Consults: 03/25/18 23:19 Consult to Insurance Defense Attorney [CONS] Routine Reason for SW Consult: Potential need for home health 03/26/18 12:50 Consult to Pulmonology [CONS] Routine Consulting Provider: [facility] Reason for Consult: acute exacerbation of Stage IV COPD, requiring BiPAP Time Notified: 12:58 Call Completed: Yes 03/26/18 19:53 Consult to Pulmonology [CONS] Routine Consulting Provider: [facility] Reason for Consult: Acute exacerbation of COPD stage IV, requiring BiPAP Call Completed: Yes 03/27/18 14:25 Consult to Palliative Care [CONS] Routine Comment: Consulting Provider: [facility] Reason for Consult: Stage IV COPD, requiring 6-8L, unamenable to SNF, may be interested in home palliative Time Notified: 14:26 Call Completed: Yes Discharging clinician: Shalonda De Oliveira Anticipated date of discharge: 03/29/18 - Constitutional Vitals: Temp Pulse Resp BP Pulse Ox 98.4 F 46 16 131/88 91 03/29/18 06:29 03/29/18 06:29 03/29/18 07:52 03/29/18 06:29 03/29/18 09:13 Exam: Vitals reviewed. General: 52 yo white female appears older than stated age sitting upright in bed , leaning forward. In mild respiratory distress. Takes pauses after sentences to catch her breath, on 8L NC. Breathes through pursed lips. Neck: No JVD, trachea midline HEENT: PERRL, normocephalic, atraumatic Cardiac: Regular Rate and Rhythm, Normal S1 and S2, No murmurs appreciated Pulmonary: decreased breath sounds throughout, Crackles throughout worse in bilateral bases. Abdomen: soft, no tenderness. no bruits, no guarding, negative murphys sign, no mcburneys tenderness Neuro: Alert and responsive, No focal deficits noted Vascular: Normal capillary refill Skin: No rashes noted on visualized skin Extremities: Clubbing BUE, No Cyanosis, No Edema, Normal Pulses Psych: Normal mood, pleasant, conversant - Patient Status Disposition: Home Health Service Condition: Serious Functional capacity at discharge: independent ambulation Overall status at discharge: patient is not back to baseline - Discharge Instructions Follow Up With: Cynthia Clark CNP [Primary Care Provider] - 04/03/18 9:00 am ( cynthia is on leave will be seeing monet) Additional Instructions: Please follow-up with your primary care physician within the next week. Please follow-up with your care analyst in 6 weeks' time. Continue taking prednisone which will taper in dosage over the next 3 weeks. Take the prescribed antibiotic, doxycycline for the next 10 days. Please wear oxygen at all times and continued to use your inhaled medications. Should you develop any worsening shortness of breath, fever, chest pain or any other symptoms worrisome to you please return to the emergency department for further evaluation. - Diet and Activity Activity: increase activity as tolerated, wear oxygen at all times Diet: advance to your usual diet <Abdi Starr - Last Filed: 03/29/18 17:06> Date of Encounter: 03/29/18 - Discharge Diagnosis (1) DVT prophylaxis Status: Acute (2) Depression Status: Chronic Qualifiers: Depression Type: unspecified Qualified Code(s): F32.9 - Major depressive disorder, single episode, unspecified (3) Hypokalemia Status: Acute (4) Acute and chronic respiratory failure with hypoxia Status: Acute (5) Tobacco dependence Status: Acute (6) COPD (chronic obstructive pulmonary disease) Status: Acute Qualifiers: COPD type: COPD with acute exacerbation Qualified Code(s): J44.1 - Chronic obstructive pulmonary disease with (acute) exacerbation (7) Dehydration Status: Acute Hospital course: Ms. Varner is a 52 year old female - Time Spent with Patient Total time spent providing and/or coordinating discharge services: Date of admission: 03/23/18 23:27 Primary care physician: Cynthia Clark CNP Consults: 03/25/18 23:19 Consult to Insurance Defense Attorney [CONS] Routine Reason for SW Consult: Potential need for home health 03/26/18 12:50 Consult to Pulmonology [CONS] Routine Consulting Provider: [facility] Reason for Consult: acute exacerbation of Stage IV COPD, requiring BiPAP Time Notified: 12:58 Call Completed: Yes 03/26/18 19:53 Consult to Pulmonology [CONS] Routine Consulting Provider: [facility] Reason for Consult: Acute exacerbation of COPD stage IV, requiring BiPAP Call Completed: Yes 03/27/18 14:25 Consult to Palliative Care [CONS] Routine Comment: Consulting Provider: [facility] Reason for Consult: Stage IV COPD, requiring 6-8L, unamenable to SNF, may be interested in home palliative Time Notified: 14:26 Call Completed: Yes - Constitutional Vitals: Temp Pulse Resp BP Pulse Ox 98.4 F 46 16 131/88 91 03/29/18 06:29 03/29/18 06:29 03/29/18 07:52 03/29/18 06:29 03/29/18 09:13 - Attending Attestation I examined this patient and my medical decision-making was reviewed with the Resident Physician Dr. De Oliveira . I agree with the documented findings, disposition and treatment plan as described except to the extent set forth below. Ms. Varner is a 52 y/o F with advanced COPD, Pulm fibrosis and interstitial lung disease pt admitted here for acute on chronic hypoxic resp failure. She is still on 5 lit O2. States feels little better today and wanted to go home only Gen : A, A, O x 3 Chest: Diminished BS b/l, moderate to severe wheezing, no crackles Heart : S1S2+ RRR a/p 1. Acute on chronic hypoxic resp failure 2. Acute COPD exacerbation 3. Acute bronchitis 4. Acute pneumonia - mostly bacterial cont broad spec abx Doxy cont Duoneb and O2 start tapering steroids slowly Will d/c her home with home O2 and prolonged duration of steroids and abx
--- NOTE | 2018-03-29 14:20 | Physician Discharge Referral ---
Home Health/Hosp Referral Info Transfer to: Home Health Provider in Charge Post Discharge: PCP - Diagnosis (1) DVT prophylaxis Status: Acute (2) Depression Status: Chronic (3) Hypokalemia Status: Acute (4) Acute and chronic respiratory failure with hypoxia Status: Acute (5) Tobacco dependence Status: Acute (6) COPD (chronic obstructive pulmonary disease) Status: Acute (7) Dehydration Status: Acute - Respiratory Orders Smoking Cessation: Smoking cessation has been advised. For more information, call the [place] Tobacco Quit Line at 9-748-VXLA-NOW. - Services Needed Following services are medically necessary services: Nursing, Home Health Aide - Transfer Medications Prescriptions: Doxycycline 100 mg PO BID 10 Days #20 capsule predniSONE [Prednisone] See Taper PO AD 20 Days #51 tab.ds.pk Home Medications: Albuterol Sulfate [Ventolin Hfa] 2 puff IH Q4H PRN 09/02/15 [History] Fluticasone Propionate Nasal [Flonase] 1 spr NS DAILY 05/27/16 [History] Montelukast [Singulair] 10 mg PO QPM 05/27/16 [History] Tiotropium [Spiriva] 18 mcg IH DAILY 05/27/16 [History] Aspirin 81 mg PO DAILY 07/11/17 [History] Ibuprofen 200 mg PO Q6H PRN 07/11/17 [History] Loratadine [Claritin] 10 mg PO DAILY 07/11/17 [History] Nitroglycerin [Nitrostat] 0.3 mg SL Q5M PRN 07/11/17 [History] diazePAM [Valium] 5 mg PO TID 03/11/18 [History] BuPROPion XL (24 HR) [Wellbutrin Xl] 150 mg PO DAILY 03/23/18 [History] Fluticasone/Vilanterol [Breo Ellipta 100-25 Mcg INH] 1 puff IH DAILY 03/23/18 [ History] Omeprazole [PriLOSEC] 20 mg PO DAILY@0630 03/23/18 [History] Doxycycline 100 mg PO BID 10 Days #20 capsule 03/29/18 [Rx] predniSONE [Prednisone] See Taper PO AD 20 Days #51 tab.ds.pk 03/29/18 [Rx] Allergies/Adverse Reactions: 3 Allergy/AdvReac Type Severity Reaction Status Date / Time codeine Allergy Rash Verified 07/11/17 17:19 fluoxetine [From Prozac] Allergy Rash Verified 07/11/17 17:19 gabapentin Allergy Swelling Verified 03/11/18 17:14 of Lip/Tongue/Throat divalproex sodium AdvReac See Verified 03/11/18 16:35 [From Depakote] Comments Certification: Further, I certify that my clinical findings support that this patient is homebound (i.e. absences from home require considerable and taxing effort and are for medical reasons or hinduism services or infrequently or short duration when for other reasons) because: Homebound Reason: Patient requires assistance of a person or device to safely leave home Attestation: My signature below is to certify that this patient is under my care and that I, or nurse practitioner, or a physician's general office assistant working with me, has a face-to -face encounter with this patient.
== END 2018-03-29 17:16 | disposition home health service (06) | DRG 140 ==
LOC: 2NENU
PROVIDERS: ADMIT Internal Medicine; ATTEND Internal Medicine